=== PATIENT | male | born 1945 | race Caucasian/White ===

== ENCOUNTER 2017-08-13 04:32 | Emergency (ER) | payer MEDICARE, OTHER ==
[2017-08-13 05:46] LABS: Bilirubin Negative (Negative); Blood, Urine Negative (Negative); Clarity CLEAR (Clear); Glucose, Urine (Dipstick) >=1000 mg/dL (Negative); Leukocyte Negative (Negative); Nitrite Negative (Negative); Protein, Urine (Dipstick) 30 mg/dL (Neg-Trace); Specific Gravity, Urine 1.025 (1.002-1.036); Urobilinogen 0.2 mg/dL (0.2-1.0)
[2017-08-13 05:49] LABS: Bacteria/HPF None Seen HPF (None Seen); Hyaline Casts/LPF 0-3 HYALINE CAST LPF (0-3 Hyaline); RBC/HPF 0-3 HPF (0-3); Squamous Epithelial 0-3 HPF (0-3); WBC/HPF 0-3 HPF (0-3)
[2017-08-13 05:52] LABS: ALT (SGPT) 17 U/L (8-55); AST (SGOT) 18 U/L (5-34); Albumin 4.8 g/dL (3.4-4.8); Alkaline Phosphatase 74 U/L (40-150); Anion Gap 14 mmol/L (10-20); BUN (Urea Nitrogen) 33 mg/dL (8.4-25.7); Bilirubin, Total 0.5 mg/dL (0.2-1.2); Calc. Creatinine Clearance 0 mL/min (70-130); Calcium 10.2 mg/dL (7.8-10.44); Carbon Dioxide 29 mmol/L (23-31); Chloride 97 mmol/L (98-107); Estimated GFR-MDRD 37; Globulin 3.6 g/dL (2.4-3.5); Glucose 364 mg/dL (83-110); Lipase 19 U/L (8-78); Potassium 3.9 mmol/L (3.5-5.1); Protein, Total 8.4 g/dL (5.8-8.1); Sodium 136 mmol/L (136-145)
[2017-08-13 05:55] LABS: CKMB 2.2 ng/mL (0-6.6); Troponin I 0.022 ng/mL (< 0.028)
[2017-08-13 06:00] LABS: #Basophils 0.1 thou/uL (0.0-0.2); #Eosinphils 0.3 thou/uL (0.0-0.7); #Lymphocytes 2.6 thou/uL (1.20-3.40); #Monocytes 0.8 thou/uL (0.11-0.59); #Neutrophils 6.6 thou/uL (1.40-6.50); %Basophils 0.6 % (0.0-1.0); %Eosinophils 2.6 % (0.0-10.0); %Neutrophils 63.9 % (42.0-75.0); Hemoglobin 15.3 g/dL (14.0-18.0); Mean Corpuscular HGB CONC 31.7 g/dL (32.0-36.0); Mean Corpuscular Volume 85.1 fl (80.0-94.0); Mean Platelet Volume 10.3 fL (7.4-10.4); Platelet Count 195 thou/uL (130-400); RBC Distribution Width 12.7 % (11.5-14.5); Red Blood Cell (RBC) Count 5.68 mill/uL (4.70-6.10); White Blood Cell (WBC) Count 10.4 thou/uL (4.8-10.8)
[2017-08-13] MEDS ORDERED: Ondansetron ODT 8 MG TAB ONE (06:35)
[2017-08-13] MEDS ORDERED: Morphine 4 MG/ML VIAL ONE (06:35)
[2017-08-13] MEDS ORDERED: hydrALAZINE 20 MG/ML VIAL ONE (08:41)
--- NOTE | 2017-08-13 09:53 | CT ---
PRELIMINARY REPORT/[facility]/EMERGENTY AFTER-HOURS PROCEDURE CT Abdomen and Pelvis Without Intravenous Contrast CLINICAL HISTORY: 71 years old, male; Pain; Abdominal pain; Localized; Right lower quadrant (rlq); Patient HX: M71 pres ents to ed C/O rlq abd pain for the last 2 days that began while pt was sitting at home. Pt reports p ain worsened tonight. Pt denies HX of similar SX, or any rachel or trauma. Pt reports nausea, denies vomiting, diarrhea, radiation of pain, changes in pain, dysuria, hematuria, fever or chills. Pt repor ts forgetting to take BP medication this am. Pt reports WYNNE. Daughter reports first hearing of pain to night when pt called because pain caused him to not sleep. TECHNIQUE: Axial computed tomography images of the abdomen and pelvis without intravenous contrast. Coronal refo rmatted images were created and reviewed. COMPARISON: No relevant prior studies available. FINDINGS: Lung bases: Mild atelectasis is seen in both lung bases. Heart: Coronary artery calcifications are noted. Mediastinum: A small hiatal hernia is seen. ABDOMEN: Liver: Unremarkable. Gallbladder and bile ducts: Unremarkable. No calcified stones. No ductal dilation. Pancreas: Severe fatty replacement of the pancreas is seen. No ductal dilation. Spleen: Unremarkable. No splenomegaly. Adrenals: Unremarkable. No mass. Kidneys and ureters: There is a simple cyst in the upper pole of the left kidney measuring 1.2 cm. No obstructing stones. No hydronephrosis. Stomach and bowel: Mild diverticulosis without evidence of diverticulitis affects the sigmoid colon. Moderate stool is noted in the colon. No obstruction. PELVIS: Appendix: No findings to suggest acute appendicitis. Bladder: Mild thickening of the urinary bladder wall is likely due to underdistention. Cystitis is no t excluded. Reproductive: Unremarkable as visualized. ABDOMEN and PELVIS: Intraperitoneal space: No evidence of free air in the abdomen. No significant fluid collection. Bones/joints: Moderate degenerative changes affect the spine. There are sternal wires consistent with previous sternotomy incision. Mild levoscoliosis of the lumbar spine is seen. No acute fracture. No dislocation. Soft tissues: Mild fat stranding involving the anterior abdominal wall on the right may represent inf ection, inflammation. Vasculature: Mild atherosclerotic calcifications affect the aorta and its branches. No abdominal aort ic aneurysm. Lymph nodes: Unremarkable. No enlarged lymph nodes. IMPRESSION: 1. Diverticulosis without evidence of diverticulitis. 2. Small hiatal hernia. 3. Mild thickening of the urinary bladder wall is likely due to underdistention. Cystitis is not excl uded. 4. Mild fat stranding involving the anterior abdominal wall on the right may represent infection, inf lammation. 5. Mild levoscoliosis of the lumbar spine. Thank you for allowing us to participate in the care of your patient. Dictated and Authenticated by: Mary Carmen Waller MD 08/13/2017 7:27 AM Central Time ([place] & [place]) FINAL REPORT ABDOMEN CT WITHOUT CONTRAST PELVIC CT WITHOUT CONTRAST: HISTORY: Two days of right lower quadrant pain. COMPARISON: None. TECHNIQUE: An abdomen and pelvic CT are performed without contrast. Coronal reformatted images are submitted fo r interpretation. FINDINGS: This report is in agreement with the preliminary report by [facility] [email or web address] No acute abnormality in the abdomen or pelvis. Normal-caliber appendix is identified. There is diverticulosis, without evidence of dive rticulitis. No evidence of obstructive uropathy. The urinary bladder demonstrates minimal prominenc e, likely due to inadequate distention. There is straightening of the anterior right abdominal subcu taneous fat, nonspecific. Correlate clinically for focal cellulitis. POS: [facility]
== END 2017-08-13 08:55 | disposition home or self-care (01) ==
LOC: ERS 04:32
DX: R10.31 Right lower quadrant pain (principal); I11.0 Hypertensive heart disease with heart failure; I50.9 Heart failure, unspecified; M06.9 Rheumatoid arthritis, unspecified; E11.9 Type 2 diabetes mellitus without complications; E78.5 Hyperlipidemia, unspecified; F41.9 Anxiety disorder, unspecified; Z87.891 Personal history of nicotine dependence; Z79.4 Long term (current) use of insulin; Z79.02 Long term (current) use of antithrombotics/antiplatelets; Z79.899 Other long term (current) drug therapy; Z79.891 Long term (current) use of opiate analgesic
CPT/HCPCS: 74176; 80053; 81003; 81015; 82553; 83605; 83690; 84484; 85025; 87086; 93005; 96374; J0360; J2270

== ENCOUNTER 2020-01-18 10:55 | Inpatient (IN) | payer MEDICARE, OTHER ==
[2020-01-18] MEDS ORDERED: Fentanyl 100 MCG/2 ML VIAL ONE (11:38)
[2020-01-18] MEDS ORDERED: Acetaminophen 500 MG TAB ONE (11:39)
[2020-01-18] MEDS ORDERED: Clindamycin/D5W 900 mg/50 ml Premix Bag ONE (11:39)
[2020-01-18] MEDS ORDERED: Cefepime 2 GM VIAL ONE (11:39)
[2020-01-18] MEDS ORDERED: Sodium Chloride 0.9% 100 ML ONE (11:40)
--- NOTE | 2020-01-18 11:52 | RAD ---
Exam: XR Foot Lt 3 View STANDARD HISTORY: Left foot pain. Wound at lateral aspect of foot. COMPARISON: None FINDINGS: Subcutaneous soft tissue swelling and emphysema is seen along the lateral aspect of the left foot at the level of the metacarpals. No adjacent osseous destruction is seen suggest osteomyelitis based on radiographic evaluation. Mild subcutaneous soft tissue swelling seen at the dorsal aspect of the l eft foot. No fracture, dislocation, or other osseous abnormality is identified. Plantar calcaneal enthesophyte. IMPRESSION: Subcutaneous soft tissue swelling and emphysema lateral left foot at the level of the fifth metatarsa l. Findings may be related to infection and patient's wound. No underlying osseous destruction is appreciated to suggest osteomyelitis based on this exam. However, if there is concern for osteomyelit is, MRI with and without IV contrast would be more sensitive study of choice for further evaluation.
[2020-01-18 12:12] LABS: Hemoglobin 12.3 g/dL (14.0-18.0); Mean Corpuscular HGB CONC 32.2 g/dL (32.0-36.0); Mean Corpuscular Hemoglobin 28.4 pg (27.0-31.0); Mean Corpuscular Volume 88.4 fL (78.0-98.0); Mean Platelet Volume 9.9 fL (7.4-10.4); Platelet Count 264 thou/uL (130-400); RBC Distribution Width 13.5 % (11.5-14.5); Red Blood Cell (RBC) Count 4.33 mill/uL (4.70-6.10); White Blood Cell (WBC) Count 25.1 thou/uL (4.8-10.8)
[2020-01-18 12:33] LABS: ALT (SGPT) 21 U/L (8-55); AST (SGOT) 22 U/L (5-34); Albumin 3.6 g/dL (3.4-4.8); Alkaline Phosphatase 126 U/L (40-110); Anion Gap 17 mmol/L (10-20); BUN (Urea Nitrogen) 35 mg/dL (8.4-25.7); Bilirubin, Total 0.5 mg/dL (0.2-1.2); Calc. Creatinine Clearance 0 mL/min (70-130); Carbon Dioxide 27 mmol/L (23-31); Chloride 92 mmol/L (98-107); Estimated GFR-MDRD 42; Globulin 3.9 g/dL (2.4-3.5); Glucose 406 mg/dL (83-110); Potassium 3.8 mmol/L (3.5-5.1); Protein, Total 7.5 g/dL (5.8-8.1); Sodium 132 mmol/L (136-145)
[2020-01-18 12:34] LABS: Band 3 % (5-11); Lymphocytes 4 % (21-51); MDiff Complete? YES; Monocytes 1 % (0-10); Neutrophil 91 % (42-75); Platelet Morphology Comment Appears Adequate; RBC Morphology Normal; Reactive Lymphocytes 1 % (0-10)
[2020-01-18] MEDS ORDERED: Vancomycin 1.5 GRAM/300 ML BAG 1.5 GM in Premix Bag 1 BAG IVPB SCH (13:00)
[2020-01-18] MEDS ORDERED: Heparin 1,000 UNITS/ML VIAL ONE (13:56)
[2020-01-18] MEDS: Acetaminophen/Codeine 30-300mg Tablet PO PRN ×2 (15:19→20:11)
[2020-01-18] MEDS ORDERED: Dextrose 50% Abboject 50 ML SYRINGE SLOW IVP PRN (16:27)
[2020-01-18] MEDS ORDERED: Dextrose 5% in Water 1,000 ML IV PRN (16:27)
[2020-01-18] MEDS: traMADol HCl 50 MG TAB PO PRN ×2 (16:32→22:35)
--- NOTE | 2020-01-18 16:40 | ULT ---
EXAM: US Arterial Doppler Lower Ext PROVIDED CLINICAL HISTORY: Diabetic foot. Left foot pain with wound left foot. COMPARISON: None FINDINGS: Grayscale, color-flow, Doppler evaluation, and spectral analysis of the left lower extremity arterial vessels is performed with 2-D imaging. There is evidence of a left lower extremity femoral to popliteal artery bypass graft. Monophasic wave forms are seen throughout the graft. Velocity measurements in the graft are 119 cm/s near the origin, 52.8 cm/s in the proximal graft, 25.9 cm/s in the mid graft, and 25.9 cm/s in the distal hannah t. There is elevated peak systolic velocity measurement with spectral broadening and monophasic waveform seen in the right popliteal artery of 195 cm/s. Peak systolic velocity in the left anterior tibial artery is 50.6 cm/s with peak systolic velocity dorsalis pedis artery significantly diminished at 6.8 cm/s. [place] right superficial femoral artery demonstrates echogenic material and calcifications with marke dly dampened monophasic waveform suggesting near occlusion of the right superficial femoral artery proximally. IMPRESSION: 1. Right lower extremity femoral to popliteal artery bypass graft with monophasic waveforms seen thro ughout the bypass graft. The peak systolic velocity becomes dampened in the proximal aspect of the graft with greater decreased systolic velocity in the mid and distal graft. 2. Significantly elevated peak systolic velocity with monophasic waveform and spectral broadening in the proximal right lower extremity popliteal artery suggesting significant stenosis at this level.
[2020-01-18] MEDS: HumaLOG 300 UNITS/3 ML VIAL SC PRN (18:03)
[2020-01-18] MEDS ORDERED: Sodium Chloride 0.9% 10 ML ONE (19:57)
[2020-01-18] MEDS: Clindamycin/D5W 600 MG in Premix Bag 1 BAG IVPB SCH (20:07)
--- NOTE | 2020-01-18 20:09 | PDOC.HHP ---
Hospitalist HPI - History of Present Illness Left leg ulcer History of Present Illness: This is a 74-year-old male patient for history of diabetes mellitus, CHF, hyperlipidemia, and COPD who presents with diabetic foot ulcer on the distal lateral edge of his left foot. The wound started developing a couple of weeks ago and has gradually worsened. It has become more painful and throbbingleading him to come to the ED for further evaluation. He denies any fevers, chest pain shortness of breath chills or rigors. He has a significant past medical history of peripheral arterial disease requiring bypass on his left popliteal femoral region evident on Doppler ultrasound scan. He has also been having bilateral tingling in his lower limbs however no clear diagnosis of neuropathy. At presentation his vitals were BP 130/62, pulse 68, respiratory 16, saturating 93% on room air. His labs showed WBC of 25.1 with 3 bands, 91% neutrophils. Also had hemoglobin 12.3, platelets 264. Chemistry showed mild hyponatremia of 132, creatinine 1.6 with estimated GFR of 42. Alkaline phosphatase was elevated at 126. X-ray of his foot showed subcutaneous soft tissue swelling and emphysema on the lateral left foot at the level of the fifth metatarsal. He was started on vancomycin, clindamycin and cefepime and given 1 L normal saline. Hospitalist team was consulted for admission. Hospitalist ROS - Review of Systems Constitutional: denies: fever, chills, weakness Respiratory: denies: cough, shortness of breath, hemoptysis, SOB with excertion Cardiovascular: denies: chest pain, palpitations, orthopnea, paroxysmal noc. dyspnea Gastrointestinal: denies: nausea, vomiting, abdominal pain, diarrhea Genitourinary: denies: dysuria, frequency, incontinence, hematuria Musculoskeletal: reports: foot pain. denies: neck pain, shoulder pain Neurological: denies: weakness Other: Paresthesia - Medication Medications: Active Medications Generic Name Dose Route Start Last Admin Trade Name Freq PRN Reason Stop Dose Admin Acetaminophen/Codeine Phosphate 1 tab 01/18/20 15:03 01/18/20 15:19 Acetaminophen/Codeine 30-300mg Tablet PO 1 tab Q4H PRN Administration Moderate Pain (4-6) Insulin Human Lispro 0 units 01/18/20 16:27 01/18/20 18:03 Humalog 300 Units/3 Ml Vial SC 3 unit .MILD SLIDING SCALE PRN Administration Mild Correctional Scale Tramadol HCl 50 mg 01/18/20 15:03 01/18/20 16:32 Tramadol Hcl 50 Mg Tab PO 50 mg Q6H PRN Administration Mild Pain (1-3) Hospitalist History - Past Medical History Cardiac: reports: CHF Other Medical History: Peripheral artery disease, diabetes mellitus, hypertension - Past Surgical History Other Surgical History: Arterial bypass - Family History Family History: reports: diabetes mellitus - Social History Smoking Status: Current every day smoker Alcohol: reports: None Activity level: independent ambulation - Exam General Appearance: awake alert General - other findings: In no acute distress Heart: RRR, no murmur, no gallops, no rubs Respiratory: no wheezes, no rales, no ronchi, normal chest expansion Gastrointestinal: soft, non-tender, non-distended, normal bowel sounds Extremities: no cyanosis, no clubbing, no edema Extremities - other findings: Ulcer on lateral edge of left foot Neurological: cranial nerve grossly intact, no weakness Psychiatric: normal affect, normal behavior, A&O x 3 Hospitalist Results - Labs Result Diagrams: 01/18/20 11:48 01/18/20 11:48 Lab results: WBC 25.1 thou/uL (4.8-10.8) H 01/18/20 11:48 Hgb 12.3 g/dL (14.0-18.0) L 01/18/20 11:48 Hct 38.3 % (42.0-52.0) L 01/18/20 11:48 MCV 88.4 fL (78.0-98.0) 01/18/20 11:48 Plt Count 264 thou/uL (130-400) 01/18/20 11:48 Band Neuts % (Manual) 3 % (5-11) L 01/18/20 11:48 Sodium 132 mmol/L (136-145) L 01/18/20 11:48 Potassium 3.8 mmol/L (3.5-5.1) 01/18/20 11:48 Chloride 92 mmol/L (98-107) L 01/18/20 11:48 Carbon Dioxide 27 mmol/L (23-31) 01/18/20 11:48 BUN 35 mg/dL (8.4-25.7) H 01/18/20 11:48 Creatinine 1.60 mg/dL (0.7-1.3) H 01/18/20 11:48 Glucose 406 mg/dL (83-110) H 01/18/20 11:48 Lactic Acid 1.6 mmol/L (0.5-2.2) 01/18/20 11:48 Calcium 9.0 mg/dL (7.8-10.44) 01/18/20 11:48 Total Bilirubin 0.5 mg/dL (0.2-1.2) 01/18/20 11:48 AST 22 U/L (5-34) 01/18/20 11:48 ALT 21 U/L (8-55) 01/18/20 11:48 Alkaline Phosphatase 126 U/L (40-110) H 01/18/20 11:48 Serum Total Protein 7.5 g/dL (5.8-8.1) 01/18/20 11:48 Albumin 3.6 g/dL (3.4-4.8) 01/18/20 11:48 Hospitalist H&P A/P - Plan Plan: This is a 74-year-old male patient with a history of diabetes mellitus, peripheral vascular disease and heart failure presenting with left foot diabetic ulcer. Diabetic foot ulcer Started on antibioticsvancomycin cefepime and clindamycin We will continue antibiotics with vancomycin Zosyn and clindamycin Given gas in the wound area will consult general surgery to evaluate due to concerns for necrotizing fasciitis Monitor vitals closely. peripheral vascular disease S/p left arterial bypass Arterial ultrasound shows compromised blood flow to right lower limbconsider vascular surgery evaluation in a.m. Patient on clopidogrel however not on any statins. We will hold clopidogrel on account of possible surgery Vascular surgery evaluation. Heart failure Not in acute exacerbation On Lasix and lisinopril at homewe will hold on account of JORDYN Evaluate if echocardiogram in a.m. JORDYN on CKD Creatinine elevated at one-point however no baseline to compare with OE hydrated Check BMP in a.m. Hyponatremia Mild Repeat BMP in a.m. VT prophylaxisHeparin CODE STATUSfull code
[2020-01-18] MEDS ORDERED: Sodium Chloride 0.9% 1,000 ML IV SCH (20:45)
--- NOTE | 2020-01-18 21:02 | RAD ---
Chest AP view INDICATION: History of heart failure COMPARISON: Prior exam dated July 21, 2015 FINDINGS: Lungs: There is persistent right basilar opacity likely related to subsegmental volume loss. This is seen adjacent to a chronic small right pleural effusion Cardiac silhouette: There is stable moderate cardiomegaly and post-CABG change Pulmonary vasculature: Normal Pleural spaces: There is a chronic small right pleural effusion Upper abdomen: No abnormality seen. Osseous structures: No acute osseous abnormality. Additional findings: None. IMPRESSION: Stable moderate cardiomegaly. Persistent right basilar pleural-parenchymal opacity consistent with a chronic small right pleural ef fusion and likely right basilar atelectasis.
[2020-01-18] MEDS: Heparin 5,000 UNITS/ML VIAL SC SCH (21:06)
[2020-01-18] MEDS ORDERED: Insulin Glargine 40 UNITS in Pre-Filled Syringe 1 EACH SC SCH (22:00)
[2020-01-18 23:29] LABS: Hemoglobin A1c Greater than 14.0 % (4.0-6.0)
[2020-01-18] MEDS ORDERED: Cefepime 2 GM in Sodium Chloride 0.9% 100 ML IVPB SCH (23:59)
[2020-01-19] MEDS: Piperacillin/Tazobactam 4.5 GM in Sodium Chloride 0.9% 100 ML IVPB SCH ×4 (00:26→18:28)
[2020-01-19] MEDS: Clindamycin/D5W 600 MG in Premix Bag 1 BAG IVPB SCH ×4 (02:22→20:10)
[2020-01-19] MEDS: Acetaminophen/Codeine 30-300mg Tablet PO PRN ×3 (03:31→15:56)
[2020-01-19] MEDS: Dextrose 5 %-0.45 % NaCl 1,000 ML IV SCH (05:45)
[2020-01-19] MEDS ORDERED: Dextrose 5 %-0.45 % NaCl 1,000 ML IV SCH (05:45)
[2020-01-19] MEDS: traMADol HCl 50 MG TAB PO PRN (05:55)
[2020-01-19 06:06] LABS: #Lymphocytes 1.2 thou/uL (1.20-3.40); #Monocytes 1.2 thou/uL (0.11-0.59); #Neutrophils 15.9 thou/uL (1.40-6.50); %Basophils 0.1 % (0.0-1.0); %Lymphocytes 6.7 % (21.0-51.0); %Monocytes 6.3 % (0.0-10.0); Hemoglobin 11.4 g/dL (14.0-18.0); Mean Corpuscular Hemoglobin 28.2 pg (27.0-31.0); Mean Corpuscular Volume 88.3 fL (78.0-98.0); Platelet Count 284 thou/uL (130-400); RBC Distribution Width 13.3 % (11.5-14.5); Red Blood Cell (RBC) Count 4.03 mill/uL (4.70-6.10); White Blood Cell (WBC) Count 18.5 thou/uL (4.8-10.8)
[2020-01-19 06:07] LABS: #Eosinphils 0.2 thou/uL (0.0-0.7)
[2020-01-19 06:26] LABS: Anion Gap 17 mmol/L (10-20); BUN (Urea Nitrogen) 24 mg/dL (8.4-25.7); Calc. Creatinine Clearance 60 mL/min (70-130); Calcium 8.4 mg/dL (7.8-10.44); Carbon Dioxide 27 mmol/L (23-31); Chloride 99 mmol/L (98-107); Estimated GFR-MDRD 60; Sodium 140 mmol/L (136-145)
[2020-01-19 06:32] LABS: Glucose 47 mg/dL (83-110); Potassium 2.8 mmol/L (3.5-5.1)
[2020-01-19] MEDS: Potassium Chloride 20 MEQ TAB PO SCH ×2 (06:55→07:59)
[2020-01-19] MEDS: Enoxaparin Sodium 40 MG/0.4 ML SYRINGE SC SCH (07:18)
--- NOTE | 2020-01-19 08:11 | PDOC.HOSPP ---
- Subjective Encounter Date: 01/19/20 Encounter Time: 11:20 Subjective: Patient desated while sleeping overnight to low 80s, up to 90's on 2LNC. No SOB. This AM after breakfast got nauseated, started vomiting, and heart rate into 40- 50s. Came to bedside. Got EKG with just sinus josseline. No chest pain. Did feel a bit dizzy. Normal blood pressure. No other complaints. - Objective Vital Signs & Weight: Vital Signs (12 hours) Temp Pulse Resp BP Pulse Ox 01/19/20 05:10 99.3 F 68 20 108/54 L 96 01/19/20 00:20 99.2 F 64 24 H 116/60 94 L Weight Weight 175 lb 0.752 oz I&O: 01/18/20 01/19/20 01/20/20 06:59 06:59 05:59 Output Total 625 Balance -625 Result Diagrams: 01/19/20 05:25 01/19/20 11:38 Additional Labs: Accuchecks 01/18/20 01/18/20 01/18/20 21:12 17:46 14:13 POC Glucose 134 H 225 H 316 H Hospitalist ROS - Review of Systems Constitutional: reports: weakness. denies: fever, chills Respiratory: denies: cough, shortness of breath Cardiovascular: denies: chest pain, palpitations Gastrointestinal: reports: nausea, vomiting. denies: abdominal pain, diarrhea, constipation Genitourinary: denies: dysuria, hematuria - Medication Medications: Active Medications Generic Name Dose Route Start Last Admin Trade Name Freq PRN Reason Stop Dose Admin Acetaminophen/Codeine Phosphate 1 tab 01/18/20 15:03 01/19/20 07:59 Acetaminophen/Codeine 30-300mg Tablet PO 1 tab Q4H PRN Administration Moderate Pain (4-6) Dextrose/Water 25 gm 01/18/20 16:27 01/19/20 05:38 Dextrose 50% Abboject 50 Ml Syringe SLOW IVP 25 gm PRN PRN Administration Hypoglycemia Enoxaparin Sodium 40 mg 01/19/20 09:00 01/19/20 07:18 Enoxaparin Sodium 40 Mg/0.4 Ml Syringe SC Not Given 0900 SELENA Heparin Sodium (Porcine) 5,000 units 01/18/20 21:00 01/18/20 21:06 Heparin 5,000 Units/Ml Vial SC 5,000 units BID SELENA Administration Clindamycin Phosphate/Dextrose 50 mls @ 100 mls/hr 01/18/20 20:00 01/19/20 07:58 600 mg/ Device IVPB 50 mls 0200,0800,1400,2000 SELENA Administration Piperacillin Sod/Tazobactam 100 mls @ 200 mls/hr 01/18/20 23:59 01/19/20 05:49 Sod 4.5 gm/ Sodium Chloride IVPB 100 mls Q6HR SELENA Administration Dextrose/Sodium Chloride 1,000 mls @ 45 mls/hr 01/19/20 05:45 01/19/20 05:45 D5 1/2 Ns IV 1,000 mls .[id number] SELENA Administration Insulin Human Lispro 0 units 01/18/20 16:27 01/18/20 18:03 Humalog 300 Units/3 Ml Vial SC 3 unit .MILD SLIDING SCALE PRN Administration Mild Correctional Scale Pantoprazole Sodium 40 mg 01/19/20 09:00 01/19/20 07:59 Pantoprazole 40 Mg Tab PO 40 mg DAILY SELENA Administration Potassium Chloride 40 meq 01/19/20 07:00 01/19/20 07:59 Potassium Chloride 20 Meq Tab PO 01/19/20 09:01 40 meq Q2H SELENA Administration Tramadol HCl 50 mg 01/18/20 15:03 01/19/20 05:55 Tramadol Hcl 50 Mg Tab PO 50 mg Q6H PRN Administration Mild Pain (1-3) - Exam General Appearance: awake alert General - other findings: mild distress from nausea, vomited some yellow fluid a couple times ENT: moist mucosa Heart: no murmur, no gallops, no rubs Heart - other findings: mild bradycardia in mid 50s currently on my exam Respiratory: CTAB, no wheezes, no rales, no ronchi Gastrointestinal: soft, non-tender, non-distended, normal bowel sounds Psychiatric: normal affect, normal behavior, A&O x 3 Hosp A/P (1) Diabetic foot ulcer Code(s): E11.621 - TYPE 2 DIABETES MELLITUS WITH FOOT ULCER; L97.509 - NON- PRESSURE CHRONIC ULCER OTH PRT UNSP FOOT W UNSP SEVERITY Status: Acute (2) Sepsis Code(s): A41.9 - SEPSIS, UNSPECIFIED ORGANISM Status: Acute (3) Peripheral vascular disease Code(s): I73.9 - PERIPHERAL VASCULAR DISEASE, UNSPECIFIED Status: Chronic (4) Diabetes mellitus type 2 in nonobese Code(s): E11.9 - TYPE 2 DIABETES MELLITUS WITHOUT COMPLICATIONS Status: Chronic (5) HTN (hypertension) Code(s): I10 - ESSENTIAL (PRIMARY) HYPERTENSION Status: Chronic (6) Hypokalemia Code(s): E87.6 - HYPOKALEMIA Status: Acute (7) Hypoglycemia Code(s): E16.2 - HYPOGLYCEMIA, UNSPECIFIED Status: Acute - Plan Patient with possible necrotizing fasciitis. General surgery consulted. On Zosyn, Clinda, and Vanc since 01/18/2020. Blood sugar low this AM. Started on IV fluids with dextrose. Monitor closely. Hypokalemia being replaced orally, recheck now with lab. Nausea, bradycardia likely due to valsalva from vomiting. Give Zofran. Check lab and Troponin. Transfer to telemetry. Possibly history of CHF. Get ECHO. Resume home BP medications. DVT Proph: Lovenox GI Proph: PPI
[2020-01-19] MEDS ORDERED: Metoprolol Tartrate 50 MG TAB PO SCH (09:00)
[2020-01-19] MEDS: Furosemide 40 MG TAB PO SCH (10:02)
[2020-01-19] MEDS: DULoxetine 30 MG CAP PO SCH (10:02)
[2020-01-19] MEDS: Lisinopril 2.5 MG TAB PO SCH (11:07)
[2020-01-19] MEDS ORDERED: Ondansetron PF 4 MG/2 ML Vial IVP SCH (11:30)
[2020-01-19] MEDS: Heparin 5,000 UNITS/ML VIAL SC SCH ×2 (12:08→20:10)
[2020-01-19] MEDS: Clopidogrel Bisulfate 75 MG TAB PO SCH (12:08)
[2020-01-19 12:09] LABS: Anion Gap 18 mmol/L (10-20); BUN (Urea Nitrogen) 23 mg/dL (8.4-25.7); Calc. Creatinine Clearance 52 mL/min (70-130); Calcium 8.6 mg/dL (7.8-10.44); Carbon Dioxide 25 mmol/L (23-31); Chloride 100 mmol/L (98-107); Estimated GFR-MDRD 51; Glucose 103 mg/dL (83-110); Potassium 3.6 mmol/L (3.5-5.1); Sodium 139 mmol/L (136-145)
[2020-01-19 12:33] LABS: CKMB 1.6 ng/mL (0-6.6)
[2020-01-19] MEDS ORDERED: Ondansetron ODT 4 MG TAB SL PRN (12:35)
[2020-01-19 13:06] LABS: Calcium 8.7 mg/dL (7.8-10.44); Chloride 99 mmol/L (98-107); Potassium 3.6 mmol/L (3.5-5.1); Sodium 136 mmol/L (136-145)
[2020-01-19 13:07] LABS: Glucose 103 mg/dL (83-110)
[2020-01-19 13:08] LABS: Anion Gap 19 mmol/L (10-20); Carbon Dioxide 22 mmol/L (23-31)
[2020-01-19 13:10] LABS: Calc. Creatinine Clearance 52 mL/min (70-130); Estimated GFR-MDRD 51
[2020-01-19 13:11] LABS: BUN (Urea Nitrogen) 23 mg/dL (8.4-25.7)
[2020-01-19] MEDS ORDERED: Aspirin 325 mg Enteric Coated Tablet PO SCH (13:30)
[2020-01-19] MEDS ORDERED: Vancomycin HCl 1.25 GM in Sodium Chloride 0.9% 250 ML 250 ML IVPB SCH (15:00)
--- NOTE | 2020-01-19 15:24 | PDOC.GSCN ---
Surgery Consult: [facility] - Consult details Date: 01/19/20 Time: 12:25 Reason for consult: wound care History of present illness: 01/19/20 15:23 74-year-old male presented to the emergency department with complaints of weakness and dizziness. He reports that he had a left lateral foot ulcer over the fifth metatarsal head. This ulcer has been progressing over the last 2 weeks. He denies fevers or chills. He does have a history for diabetes, c ongestive heart failure, COPD, and significant peripheral vascular disease. Surgery Consult: [facility] Past Medical History: Diabetes mellitus Congestive heart failure Hyperlipidemia COPD Peripheral vascular disease status post bilateral bypass Past Surgical History: Bilateral femoral bypass - Past Family History Pertinent family history: Diabetes mellitus - Past Social History Smoking Status: Current every day smoker Alcohol Use: none Drug Use History: none Living Situation: Surgery Consult: Exam - Vital signs Vital signs: Vital Signs - Most Recent Temp Pulse Resp BP Pulse Ox 98.0 F 48 L 15 106/57 L 99 01/19/20 11:04 01/19/20 12:27 01/19/20 12:27 01/19/20 12:27 01/19/20 11:15 - Physical Exam General: moderate distress, no distress, severe distress, well developed, well nourished ENT: no congestion, no hearing loss, normal mucosa, normal nares, normal pinna Neck: no bruits, no lymphadectomy, no masses, no tamica distention, trachea midline Respiratory: normal expansion, normal respiratory effort Abdomen: soft, tender Integumentary: no rash Neurologic: normal coordination, normal sensation Musculoskeletal: other (2 to 3 cm chronic ulcer of the left lateral foot at the fifth metatarsal head. Superficial dark eschar with surrounding erythema. Not consistent with necrotizing fasciitis.) Psychiatric: memory intact, oriented to time, oriented to person, oriented to place, speech is normal Surgery Consult: Meds - Medications Medications: Current Medications Acetaminophen (Acetaminophen 325 Mg Tab) 650 mg PO Q6H PRN PRN Reason: Mild Pain (1-3) Acetaminophen/Codeine Phosphate (Acetaminophen/Codeine 30-300mg Tablet) 1 tab PO Q4H PRN PRN Reason: Moderate Pain (4-6) Last Admin: 01/19/20 07:59 Dose: 1 tab Documented by: Aspirin (Aspirin 325 Mg Enteric Coated Tablet) 325 mg PO NOW SELENA Stop: 10/31/20 15:30 Last Admin: 01/19/20 13:27 Dose: 325 mg Documented by: Aspirin (Aspirin 81 Mg Enteric Coated Tablet) 81 mg PO DAILY [facility] Clopidogrel Bisulfate (Clopidogrel Bisulfate 75 Mg Tab) 75 mg PO DAILY [facility] Last Admin: 01/19/20 12:08 Dose: Not Given Documented by: Dextrose/Water (Dextrose 50% Abboject 50 Ml Syringe) 25 gm SLOW IVP PRN PRN PRN Reason: Hypoglycemia Last Admin: 01/19/20 05:38 Dose: 25 gm Documented by: Duloxetine HCl (Duloxetine 30 Mg Cap) 30 mg PO DAILY [facility] Last Admin: 01/19/20 10:02 Dose: 30 mg Documented by: Enoxaparin Sodium (Enoxaparin Sodium 40 Mg/0.4 Ml Syringe) 40 mg SC 0900 [facility] Last Admin: 01/19/20 07:18 Dose: Not Given Documented by: Furosemide (Furosemide 40 Mg Tab) 40 mg PO DAILY [facility] Last Admin: 01/19/20 10:02 Dose: 40 mg Documented by: Glucagon (Glucagon 1 Mg/Ml Vial) 1 mg IM PRN PRN PRN Reason: Hypoglycemia Heparin Sodium (Porcine) (Heparin 5,000 Units/Ml Vial) 5,000 units SC BID [facility] Last Admin: 01/19/20 12:08 Dose: Not Given Documented by: Dextrose/Water (D5w) 1,000 mls @ 0 mls/hr IV .Q0M PRN PRN Reason: Hypoglycemia Vancomycin HCl 1.25 gm/ Sodium (Chloride) 250 mls @ 166.67 mls/hr IVPB 1500 [facility] Clindamycin Phosphate/Dextrose (600 mg/ Device) 50 mls @ 100 mls/hr IVPB 0200,0800,1400,2000 [facility] Last Admin: 01/19/20 14:47 Dose: 50 mls Documented by: Piperacillin Sod/Tazobactam (Sod 4.5 gm/ Sodium Chloride) 100 mls @ 200 mls/hr IVPB Q6HR [facility] Last Admin: 01/19/20 12:24 Dose: 100 mls Documented by: Dextrose/Sodium Chloride (D5 1/2 Ns) 1,000 mls @ 45 mls/hr IV .[id number] [facility] Last Admin: 01/19/20 05:45 Dose: 1,000 mls Documented by: Insulin Glargine 20 units/ (Miscellaneous Medication) 0.2 mls @ 0 mls/hr SC [facility] Influenza Virus Vaccine Quadrival (Flu Vacc [id number](65yr Up)/Pf 240 Mcg/0.7 Ml Syringe) 240 mcg IM .ONCE ONE Stop: 01/19/20 15:46 Insulin Human Lispro (Humalog 300 Units/3 Ml Vial) 0 units SC .MILD SLIDING SCALE PRN PRN Reason: Mild Correctional Scale Last Admin: 01/18/20 18:03 Dose: 3 unit Documented by: Lisinopril (Lisinopril 2.5 Mg Tab) 2.5 mg PO DAILY [facility] Last Admin: 01/19/20 11:07 Dose: Not Given Documented by: Metoprolol Tartrate (Metoprolol Tartrate 50 Mg Tab) 50 mg PO DAILY [facility] Last Admin: 01/19/20 10:02 Dose: 50 mg Documented by: Miscellaneous Medication (Pharmacy To Dose Vancomycin) 1 each IVPB PRN PRN PRN Reason: Pharmacy to dose Ondansetron HCl (Ondansetron Pf 4 Mg/2 Ml Vial) 4 mg IVP Q6H PRN PRN Reason: Nausea/Vomiting Ondansetron HCl (Ondansetron Odt 4 Mg Tab) 4 mg SL Q6H PRN PRN Reason: Nausea/Vomiting Pantoprazole Sodium (Pantoprazole 40 Mg Tab) 40 mg PO DAILY [facility] Last Admin: 01/19/20 07:59 Dose: 40 mg Documented by: Pneumococcal Polyvalent Vaccine (Pneumococcal 23 "Pneumovax" 0.5 Ml Vial) 0.5 ml IM .ONCE ONE Stop: 01/19/20 15:46 Tramadol HCl (Tramadol Hcl 50 Mg Tab) 50 mg PO Q6H PRN PRN Reason: Mild Pain (1-3) Last Admin: 01/19/20 05:55 Dose: 50 mg Documented by: - Allergies Allergies/Adverse Reactions: Allergies Allergy/AdvReac Type Severity Reaction Status Date / Time carvedilol [From Coreg] Allergy Verified 01/18/20 12:54 Surgery Consult: Results - Labs Result Diagrams: 01/19/20 05:25 01/19/20 11:38 Lab results: Laboratory Results WBC 18.5 thou/uL (4.8-10.8) H 01/19/20 05:25 RBC 4.03 mill/uL (4.70-6.10) L 01/19/20 05:25 Hgb 11.4 g/dL (14.0-18.0) L 01/19/20 05:25 Hct 35.6 % (42.0-52.0) L 01/19/20 05:25 MCV 88.3 fL (78.0-98.0) 01/19/20 05:25 MCH 28.2 pg (27.0-31.0) 01/19/20 05:25 MCHC 32.0 g/dL (32.0-36.0) 01/19/20 05:25 RDW 13.3 % (11.5-14.5) 01/19/20 05:25 Plt Count 284 thou/uL (130-400) 01/19/20 05:25 MPV 10.0 fL (7.4-10.4) 01/19/20 05:25 Neutrophils % 86.0 % (42.0-75.0) H 01/19/20 05:25 Neutrophils % (Manual) 91 % (42-75) H 01/18/20 11:48 Band Neuts % (Manual) 3 % (5-11) L 01/18/20 11:48 Lymphocytes % 6.7 % (21.0-51.0) L 01/19/20 05:25 Lymphocytes % (Manual) 4 % (21-51) L 01/18/20 11:48 Reactive Lymphs % 1 % (0-10) 01/18/20 11:48 Monocytes % 6.3 % (0.0-10.0) 01/19/20 05:25 Monocytes % (Manual) 1 % (0-10) 01/18/20 11:48 Eosinophils % 1.0 % (0.0-10.0) 01/19/20 05:25 Basophils % 0.1 % (0.0-1.0) 01/19/20 05:25 Neutrophils # 15.9 thou/uL (1.40-6.50) H 01/19/20 05:25 Lymphocytes # 1.2 thou/uL (1.20-3.40) 01/19/20 05:25 Monocytes # 1.2 thou/uL (0.11-0.59) H 01/19/20 05:25 Eosinophils # 0.2 thou/uL (0.0-0.7) 01/19/20 05:25 Basophils # 0.0 thou/uL (0.0-0.2) 01/19/20 05:25 Plt Morphology Comment Appears Adequate 01/18/20 11:48 RBC Morph Comment Normal 01/18/20 11:48 Sodium 139 mmol/L (136-145) 01/19/20 11:38 Potassium 3.6 mmol/L (3.5-5.1) 01/19/20 11:38 Chloride 100 mmol/L (98-107) 01/19/20 11:38 Carbon Dioxide 25 mmol/L (23-31) 01/19/20 11:38 Anion Gap 18 mmol/L (-20) 01/19/20 11:38 BUN 23 mg/dL (8.4-25.7) 01/19/20 11:38 Creatinine 1.36 mg/dL (0.7-1.3) H 01/19/20 11:38 Estimated GFR (MDRD) 51 01/19/20 11:38 Glucose 103 mg/dL (83-110) 01/19/20 11:38 POC Glucose 94 mg/dL (70-100) 01/19/20 11:11 Hemoglobin A1c Greater than 14.0 % (4.0-6.0) H 01/18/20 21:17 Lactic Acid 1.6 mmol/L (0.5-2.2) 01/18/20 11:48 Calcium 8.6 mg/dL (7.8-10.44) 01/19/20 11:38 Total Bilirubin 0.5 mg/dL (0.2-1.2) 01/18/20 11:48 AST 22 U/L (5-34) 01/18/20 11:48 ALT 21 U/L (8-55) 01/18/20 11:48 Alkaline Phosphatase 126 U/L (40-110) H 01/18/20 11:48 CK-MB (CK-2) 1.6 ng/mL (0-6.6) 01/19/20 11:38 Troponin I 1.012 ng/mL (< 0.028) H* 01/19/20 11:38 Serum Total Protein 7.5 g/dL (5.8-8.1) 01/18/20 11:48 Albumin 3.6 g/dL (3.4-4.8) 01/18/20 11:48 Globulin 3.9 g/dL (2.4-3.5) H 01/18/20 11:48 Albumin/Globulin Ratio 0.9 g/dL (1.2-2.2) L 01/18/20 11:48 - Radiology Interpretation Other Additional comments: Chest x-ray, lower extremity ultrasound, and left foot x-ray reviewed as well as radiology interpretation. Chest x-ray demonstrates stable mild cardiomegaly with a chronic small right effusion. Lower extremity ultrasounds demonstrate decreased flow (monophasic) through grafts. Left foot x-ray shows emphysema surrounding the ulcer with no evidence of osteomyelitis. Surgery Consult: A/P - Problem (1) Diabetic foot ulcer Current Visit: Yes Code(s): E11.621 - TYPE 2 DIABETES MELLITUS WITH FOOT ULCER; L97.509 - NON-PRESSURE CHRONIC ULCER OTH PRT UNSP FOOT W UNSP SEVERITY Status: Acute - Plan Plan: Recommend evaluation by wound care for superficial bedside debridement and/or enzymatic debridement. Continue broad-spectrum antibiotics per hospitalist team Consider vascular surgery consultation to evaluate bypass graft and inflow. We will continue to follow peripherally. Please call for any further questions.
[2020-01-19] MEDS ORDERED: FLU VACC QS2020-21(65YR UP)/PF 240 MCG/0.7 ML SYRINGE IM ONE (15:45)
[2020-01-19] MEDS: Ondansetron PF 4 MG/2 ML Vial IVP PRN (15:52)
[2020-01-19] MEDS: Atorvastatin Calcium 40 MG TAB PO SCH (20:10)
[2020-01-19] MEDS: Insulin Glargine 20 UNITS in Pre-Filled Syringe SC SCH (20:21)
--- NOTE | 2020-01-19 20:37 | CON ---
DATE OF CONSULTATION: HISTORY OF PRESENT ILLNESS: The patient is a 74-year-old gentleman, who presented with foot pain and was noted to have an elevated troponin level. The patient states he has previously suffered a myocardial infarction in 2008. He also has had congestive heart failure. The patient has a history of peripheral vascular disease and apparently has undergone a bifemoral aorto bypass. The patient presented with an infected left foot and was found to have an elevated troponin level. The patient denies having any chest discomfort. He denies having any dyspnea. PAST MEDICAL HISTORY: 1. Myocardial infarction. 2. Congestive heart failure. 3. Diabetes mellitus. 4. Dyslipidemia. 5. Peripheral vascular disease. 6. COPD. PAST SURGICAL HISTORY: Aortofemoral bypass and hernia surgery. SOCIAL HISTORY: Former smoker. ALLERGIES: COREG. MEDICATIONS: 1. Metoprolol 50 daily. 2. Lasix 40 daily. 3. Plavix 75 daily. 4. Protonix 40 daily. 5. Lisinopril 2.5 daily. 6. Duloxetine 30 daily. 7. Insulin. PHYSICAL EXAMINATION: GENERAL: Elderly gentleman, in no acute distress. VITAL SIGNS: With a blood pressure 134/60. NECK: Showed no jugular venous distention. LUNGS: Clear to auscultation. HEART: Regular rate and rhythm. Normal S1 and S2. No murmurs. ABDOMEN: Nondistended. EXTREMITIES: Show infected left lower foot. VASCULAR: Radial pulses are 2+. LABORATORY DATA: White blood cell count 18.5, hemoglobin 11.4, hematocrit 35.6, and platelets 284. Sodium 139, potassium 3.6, chloride 100, bicarbonate 25, BUN 23, and creatinine 1.36. Troponin 1.0. EKG normal sinus rhythm with voltage criteria for left ventricular hypertrophy, ST abnormality suggestive of a repolarization abnormality. IMPRESSION AND PLAN: 1. Cellulitis. 2. Peripheral vascular disease, status post aortofemoral bypass. 3. Elevated troponin level. 4. Diabetes mellitus. 5. Hypertension. 6. Dyslipidemia. This gentleman presents with cellulitis of the left lower foot. From a cardiac standpoint, he was noted to have an elevated troponin level. This is probably secondary to demand ischemia. He is asymptomatic. We will check the patient's echocardiogram. We will start the patient on lipid-lowering medication. The patient will continue on aspirin and Plavix. Job ID: [id number] [facility]
[2020-01-19] MEDS ORDERED: Insulin Glargine 40 UNITS in Pre-Filled Syringe 1 EACH SC SCH (21:00)
[2020-01-20] MEDS: Piperacillin/Tazobactam 4.5 GM in Sodium Chloride 0.9% 100 ML IVPB SCH ×3 (00:05→11:42)
[2020-01-20] MEDS: Clindamycin/D5W 600 MG in Premix Bag 1 BAG IVPB SCH ×3 (01:41→14:08)
[2020-01-20] MEDS: Acetaminophen/Codeine 30-300mg Tablet PO PRN ×5 (01:44→20:12)
[2020-01-20 04:46] LABS: #Eosinphils 0.2 thou/uL (0.0-0.7); #Lymphocytes 1.3 thou/uL (1.20-3.40); #Neutrophils 11.9 thou/uL (1.40-6.50); %Basophils 0.2 % (0.0-1.0); %Eosinophils 1.6 % (0.0-10.0); %Lymphocytes 9.2 % (21.0-51.0); %Monocytes 6.9 % (0.0-10.0); %Neutrophils 82.2 % (42.0-75.0); Hemoglobin 10.5 g/dL (14.0-18.0); Mean Corpuscular HGB CONC 31.5 g/dL (32.0-36.0); Mean Corpuscular Hemoglobin 28.3 pg (27.0-31.0); Mean Corpuscular Volume 89.7 fL (78.0-98.0); Mean Platelet Volume 10.1 fL (7.4-10.4); Platelet Count 236 thou/uL (130-400); RBC Distribution Width 13.6 % (11.5-14.5); White Blood Cell (WBC) Count 14.5 thou/uL (4.8-10.8)
[2020-01-20 05:14] LABS: Anion Gap 17 mmol/L (10-20); BUN (Urea Nitrogen) 24 mg/dL (8.4-25.7); Calc. Creatinine Clearance 45 mL/min (70-130); Carbon Dioxide 22 mmol/L (23-31); Chloride 101 mmol/L (98-107); Estimated GFR-MDRD 47; Glucose 186 mg/dL (83-110); Potassium 4.3 mmol/L (3.5-5.1); Sodium 136 mmol/L (136-145)
[2020-01-20] MEDS: Dextrose 5 %-0.45 % NaCl 1,000 ML IV SCH (05:18)
[2020-01-20] MEDS: traMADol HCl 50 MG TAB PO PRN (05:20)
[2020-01-20] MEDS: Enoxaparin Sodium 40 MG/0.4 ML SYRINGE SC SCH (09:36)
[2020-01-20] MEDS: Furosemide 40 MG TAB PO SCH (09:37)
[2020-01-20] MEDS: Clopidogrel Bisulfate 75 MG TAB PO SCH (09:37)
[2020-01-20] MEDS: Aspirin 81 mg Enteric Coated Tablet PO SCH (09:37)
[2020-01-20] MEDS: Heparin 5,000 UNITS/ML VIAL SC SCH ×2 (09:37→20:10)
[2020-01-20] MEDS: Lisinopril 2.5 MG TAB PO SCH (09:37)
[2020-01-20] MEDS: DULoxetine 30 MG CAP PO SCH (09:37)
[2020-01-20] MEDS: HumaLOG 300 UNITS/3 ML VIAL SC PRN ×2 (11:42→17:31)
--- NOTE | 2020-01-20 11:50 | PRG ---
DATE OF SERVICE: 01/20/[address] angiogram and the patient appeared to have umbilical vein utilized for the femoral-popliteal bypasses. Both right and left-sided grafts are about to fail based on distal disease. Contrast fades out of the right graft before a stent that was evidently placed at some point to maintain patency is present at the level of the knee. On the left side, there is a proximal common femoral artery stenosis and then severe distal disease in the graft near the anastomosis to the popliteal artery with severely diseased popliteal artery and no apparent runoff in any of the tibial vessels. At this time, it would appear that there are very limited options in this gentleman's case. Left common femoral endarterectomy could be performed, but the graft is close to failing distally with few options available later. Similarly, the profunda system is quite small. At this time, prognosis is poor and he will ultimately probably need [id number] amputation, but we will continue with local wound care for this time. Job ID: [id number]
--- NOTE | 2020-01-20 12:51 | CON ---
DATE OF CONSULTATION: HISTORY OF PRESENT ILLNESS: This is a 74-year-old gentleman with peripheral and cardiovascular disease, who presents with a 2-week history of soreness and an ulcer on the lateral aspect of his left foot. The patient presented to the hospital due to pain and smell from the wound. He has a history of bilateral femoral-popliteal bypass done in [place], [place] prior to 2009 for claudication. The patient believes that a plastic was utilized. In any event, he also underwent a right carotid endarterectomy there. I saw him about five years ago during admission for some heart failure, at which time his ejection fraction was normal and cardiac catheterization demonstrated a patent LAD and OM graft with essentially occluded [place] circulation. He had several admissions for heart failure, which was felt to be diastolic at that time. During one of those admissions about five years ago, he was found to have what was felt to be greater than 70% left carotid stenosis by ultrasound and the patient never returned for followup. During his subsequent admission, he was again seen to have an ultrasound greater than 70%. However, no followup was recommended by the service at that time. Cardiovascular risk factors include hypertension, diabetes mellitus, and dyslipidemia. SOCIAL HISTORY: The patient reports current everyday smoking. PHYSICAL EXAMINATION: GENERAL: Elderly gentleman cooperative and answering questions. NECK: Right carotid scar and bilateral carotid bruits. LUNGS: Clear to auscultation. CARDIAC: Regular rate and rhythm with a 1 to 2/6 systolic murmur right upper sternal border. ABDOMEN: Soft and nontender. EXTREMITIES: He has palpable femoral pulses bilaterally. No other palpable pulses. He has Doppler signals in both right and left DP and PT diminished quality bilaterally. He has a smelling wound of his left lateral foot region of the fifth metatarsal head that has black eschar in that region and surrounding cellulitis. He does complain of pain. He has a scar above both knees proximal to both knees as well as a smaller scar over the right medial knee suggesting that this may have been the site of saphenous vein harvesting for his coronary artery bypass surgery. He has an ultrasound suggesting a patent monophasic signal in his bypass graft. We will go ahead and proceed with a CTA to assess the overall status of his legs and determine whether anything further can be done to improve his circulation. Regardless, if we improve the circulation, he will need at least his fifth metatarsal removed and then if revascularization is not possible, he will probably need an amputation more proximally. Job ID: [id number]
--- NOTE | 2020-01-20 12:59 | CT ---
CT ANGIOGRAM ABDOMEN AND PELVIS AND BILATERAL LOWER EXTREMITIES WITH IV CONTRAST AND 3D MIP RECONSTRU CTIONS: PROVIDED CLINICAL HISTORY: Left foot pain with gangrene. COMPARISON: CT examination of the abdomen and pelvis from 08/13/2017. FINDINGS: There are partially visualized pleural effusions, right greater than left, with associated passive at electasis. Prominent cardiomegaly. Small hiatal hernia. There is moderate gallbladder distention with nonspecific pericholecystic fluid. The solid abdominal organs are suboptimally evaluated in the arterial phase of contrast but demonstrate no evidence for a n acute abnormality. There is no bowel dilatation, localized inflammatory fat stranding or free air apparent. There is obdulio e fluid present within the right paracolic gutter and pelvic cul-de-sac to a mild degree. The abdominal aorta is nonaneurysmal. Extensive atherosclerotic vascular calcification is seen involv ing the abdominal aorta and its branches. There is severe stenosis at the right renal artery origin a nd severe stenosis at the left renal artery origin. There is moderate celiac origin stenosis. There i s mild superior mesenteric artery origin stenosis. There is high-grade inferior mesenteric artery [place] stenosis. There is eccentric mural plaque involving the proximal right common iliac artery, producing approxima tely 50% stenosis over a short segment. No high-grade common iliac or external iliac artery stenosis is evident on either side. Multifocal atherosclerotic vascular calcification involves the internal il iac arteries with areas of short segment high-grade stenosis/occlusion. On the right, the right superficial femoral artery is occluded diffusely. The right profunda femoral artery demonstrates a moderate calcified origin stenosis. Postoperative changes of femoral/popliteal bypass are seen on the right. There is no contrast material seen within the distal aspects of the byp ass graft. This terminates near a right popliteal artery stent, which also appears occluded diffusely . There is no contrast opacification of the runoff vessels on the right on the initial sequence with some opacification of the perineal artery on the more delayed scan. On the left, the superficial femoral artery is occluded diffusely. The profunda femoral artery demons trates a moderate proximal stenosis. The profunda femoral artery on the left is not opacified subsequ ent to the level of the lesser trochanter. Postoperative changes of femoral to popliteal bypass are d emonstrated on the left. Contrast material is seen within the bypass graft. The lumen of the graft ap pears narrowed distally. There is diffuse circumferential high-grade narrowing at the proximal poplit eal artery. On the initial images, there is minimal contrast opacification of the distal left poplite al artery and run-off vessels. The delayed images demonstrate contrast material within the posterior tibial and anterior tibial arteries, to the level of the foot. The peroneal artery is also likely opa cified to the level of the foot. IMPRESSION: 1. Occlusion of the right distal femoral-popliteal bypass graft and popliteal artery with minimal opa cification of the right peroneal artery on the right. The right anterior tibial and posterior tibial arteries do not appear opacified. 2. High-grade left artery popliteal stenosis with three vessel run-off on the left on the more delaye d images. 3. Moderate gallbladder distention with nonspecific pericholecystic fluid. Correlate with concerns fo r cholecystitis. 4. Mild free intraperitoneal fluid, etiology and significance uncertain. 5. Bilateral pleural fluid, right greater than left. POS: [facility]
[2020-01-20 14:31] LABS: Vancomycin, Trough 11.9 ug/mL
[2020-01-20] MEDS: Vancomycin 1.5 GRAM/300 ML BAG 1.5 GM in Premix Bag 1 BAG IVPB SCH (15:33)
[2020-01-20] MEDS ORDERED: Iopamidol-370 76% 500 ML 1 ML ONE (15:37)
--- NOTE | 2020-01-20 15:54 | PDOC.HOSPP ---
- Subjective Encounter Date: 01/20/20 Encounter Time: 07:30 Subjective: Patient seen for follow-up regarding diabetic foot infection. He reports pain in the left leg. He denies fevers or chills. - Objective Vital Signs & Weight: Vital Signs (12 hours) Temp Pulse Resp BP Pulse Ox 01/20/20 11:50 97.9 F 61 17 130/60 89 L 01/20/20 07:30 98.4 F 58 L 17 104/55 L 90 L Weight Weight 163 lb I&O: 01/19/20 01/20/20 01/21/20 07:59 06:59 06:59 Intake Total Output Total Balance Result Diagrams: 01/20/20 04:21 01/20/20 04:21 Additional Labs: Accuchecks 01/20/20 01/20/20 01/19/20 11:16 05:51 20:20 POC Glucose 243 H 174 H 175 H I reviewed patient's labs and MAR EKG Reviewed by me: Yes (Telemetry: NSR) Hospitalist ROS - Review of Systems Cardiovascular: denies: chest pain, palpitations, orthopnea, paroxysmal noc. dyspnea, edema, light headedness Gastrointestinal: denies: nausea, vomiting, abdominal pain, diarrhea, constipation, melena, hematochezia Musculoskeletal: reports: leg pain, foot pain. denies: neck pain, shoulder pain, arm pain, back pain, hand pain - Medication Medications: Active Medications Generic Name Dose Route Start Last Admin Trade Name Freq PRN Reason Stop Dose Admin Acetaminophen/Codeine Phosphate 1 tab 01/18/20 15:03 01/20/20 11:42 Acetaminophen/Codeine 30-300mg Tablet PO 1 tab Q4H PRN Administration Moderate Pain (4-6) Aspirin 81 mg 01/20/20 09:00 01/20/20 09:37 Aspirin 81 Mg Enteric Coated Tablet PO 81 mg DAILY SELENA Administration Atorvastatin Calcium 40 mg 01/19/20 21:00 01/19/20 20:10 Atorvastatin Calcium 40 Mg Tab PO 40 mg HS SELENA Administration Clopidogrel Bisulfate 75 mg 01/19/20 09:00 01/20/20 09:37 Clopidogrel Bisulfate 75 Mg Tab PO 75 mg DAILY [facility] Administration Dextrose/Water 25 gm 01/18/20 16:27 01/19/20 05:38 Dextrose 50% Abboject 50 Ml Syringe SLOW IVP 25 gm PRN PRN Administration Hypoglycemia Duloxetine HCl 30 mg 01/19/20 09:00 01/20/20 09:37 Duloxetine 30 Mg Cap PO 30 mg DAILY [facility] Administration Furosemide 40 mg 01/19/20 09:00 01/20/20 09:37 Furosemide 40 Mg Tab PO 40 mg DAILY [facility] Administration Dextrose/Sodium Chloride 1,000 mls @ 45 mls/hr 01/19/20 05:45 01/20/20 05:18 D5 1/2 Ns IV 1,000 mls .[id number] [facility]LE[facility] Administration Insulin Glargine 20 units/ 0.2 mls @ 0 mls/hr 01/19/20 21:00 01/19/20 20:21 Miscellaneous Medication SC Not Given HS SELENA Vancomycin HCl 1.5 gm/ Device 300 mls @ 166.67 mls/hr 01/20/20 15:00 01/20/20 15:33 IVPB 300 mls 1500 SELE[facility] Administration Insulin Human Lispro 0 units 01/18/20 16:27 01/20/20 11:42 Humalog 300 Units/3 Ml Vial SC 3 unit .MILD SLIDING SCALE PRN Administration Mild Correctional Scale Lisinopril 2.5 mg 01/19/20 09:00 01/20/20 09:37 Lisinopril 2.5 Mg Tab PO 2.5 mg DAILY [facility] Administration Ondansetron HCl 4 mg 01/19/20 12:35 01/19/20 15:52 Ondansetron Pf 4 Mg/2 Ml Vial IVP 4 mg Q6H PRN Administration Nausea/Vomiting Pantoprazole Sodium 40 mg 01/19/20 09:00 01/20/20 09:37 Pantoprazole 40 Mg Tab PO 40 mg DAILY [facility] Administration Tramadol HCl 50 mg 01/18/20 15:03 01/20/20 05:20 Tramadol Hcl 50 Mg Tab PO 50 mg Q6H PRN Administration Mild Pain (1-3) - Exam General Appearance: awake alert Eye: anicteric sclera ENT: moist mucosa Neck: supple Heart: RRR Respiratory: CTAB Gastrointestinal: soft, non-tender, normal bowel sounds Gastrointestinal - other findings: Hughes sign negative Skin - other findings: Foot infection as documented Psychiatric: normal affect, normal behavior Hosp A/P - Plan #1 diabetic foot ulcer: Continue Zosyn, clindamycin and vancomycin for now. Consult infectious disease service for optimization of antibiotics. Consult wound care. #2. Peripheral vascular disease: Consult cardiovascular surgery for opinion and help with management. #3. Hypertension: Monitor vital signs and titrate antihypertensives as needed. Hypertension is controlled at this time. #4. Diabetes mellitus: Continue Accu-Cheks and insulin sliding scale. #5. Chronic kidney disease stage III: Stable. As needed pain medications. DVT prophylaxis with heparin.
[2020-01-20] MEDS: Cefepime 2 GM in Sodium Chloride 0.9% 100 ML IVPB SCH (17:31)
[2020-01-20] MEDS: metroNIDAZOLE 250 MG TAB PO SCH (20:10)
[2020-01-20] MEDS: Atorvastatin Calcium 40 MG TAB PO SCH (20:10)
[2020-01-20] MEDS: Insulin Glargine 20 UNITS in Pre-Filled Syringe SC SCH (20:12)
--- NOTE | 2020-01-20 21:32 | CON ---
DATE OF CONSULTATION: 01/20/2020 REASON FOR CONSULTATION: Left foot inflammatory process with peripheral vascular disease. HISTORY OF PRESENT ILLNESS: A 74-year-old, history of former smoking, ischemic cardiomyopathy, type 2 diabetes, hyperlipidemia, who has had peripheral vascular disease and right and left-sided revascularizations in the form of femoral-popliteal bypass procedures. He developed inflammatory process in the left fifth toe for the past few days with marked pain associated with callus, initially tried to handle it with [id number] callus pads which did not help. Then, he tried to remove the callus pad and somehow it tore off the skin with it. Obviously, probably it was necrotic with blistering, and then he got progressively more painful and developed areas of necrosis. He saw a scroll shear operator and he was told to be admitted. On arrival, his blood pressure 130/74, pulse 76, respirations 16, temperature 98, O2 saturation 96. The exam finding remarkable for a wound in the lateral aspect of left forefoot close to the fifth metatarsal. There was evidence of necrosis at the center and erythema around it. LABORATORY DATA: Other findings on admission are white cell count 25,000, hemoglobin 12.3, platelets 264, 91% neutrophils. Creatinine 1.6. Liver profile with alkaline phosphatase 126. Other elements were normal. Albumin 3.6. Lactic acid 1.6. Microbiology, two sets of blood cultures no growth thus far. IMAGING DATA: Demonstrated soft tissue swelling and gas in soft tissues, but no bony abnormalities. The patient had an arterial ultrasound which was abnormal, so Dr. Garcia was consulted and he performed an aorta with runoff to CTA which showed occlusion of the right distal femoral-popliteal bypass, popliteal artery, minimal opacification of the right peroneal artery, and high-grade left artery popliteal stenosis, three-vessel runoff on the left on the more delayed images. REVIEW OF SYSTEMS: Currently, Mr. Leigh is lying on slight right lateral decubitus. He is trying to sleep but cannot because of the pain in the left foot. No visual symptoms, sore throat, odynophagia, dysphagia. Actually, mild headaches. No dental pain. No dyspnea. No chest pain. No abdominal pain or diarrhea. No genitourinary symptoms. Voiding without difficulty in the urinal. No hematemesis, melena, hematochezia. No neurological symptoms. PAST MEDICAL HISTORY: Rheumatoid arthritis, CHF, ischemic cardiomyopathy, type 2 diabetes, peripheral vascular disease with various procedures for revascularization in right and left lower extremity, hyperlipidemia, hypertension, chronic obstructive lung disease. PAST SURGICAL HISTORY: Includes hernia repair; bypass graft surgery in the femoral-popliteal bypass, right and left side. SOCIAL HISTORY: Former smoker, quit more than 10 years ago. No alcoholic beverage use. ALLERGIES: COREG. CURRENT MEDICATIONS: 1. Aspirin. 2. Lipitor. 3. Plavix. 4. Dextrose. 5. Cymbalta. 6. Heparin insulin. 7. Toprol. 8. Zofran. 9. Protonix. 10. Zosyn. 11. Vancomycin. PHYSICAL EXAMINATION: VITAL SIGNS: T-max 99.2, blood pressure 130/60, heart rate 61, respiratory rate 17, O2 saturation ranging from 89 to 100. SKIN: Shows the area of ulceration of the fifth metatarsal skin site, left side, with central areas of necrosis. Peripheral IV access. GENITOURINARY: He is voiding in the urinal. LYMPHATICS: No lymphadenopathy. EXTREMITIES: Cool to touch. HEENT: Ocular movements conjugate. Numerous missing teeth. NECK: Supple. LUNGS: Symmetric clear breath sounds. HEART: S1 and S2, regular rate. No S3 or S4. ABDOMEN: Soft, not distended or tender. No ascites. No bladder distention. VASCULAR: I could not feel any popliteal pulses nor dorsalis pedis. Cap refill is delayed on both sides. NEUROLOGICAL: Cognitive function appears to be intact. LABORATORY DATA: White cell count is down to 14.5, hemoglobin 10.5, platelets 236 with 82% neutrophils; and creatinine 1.6 and now it is 1.47 with GFR 47. ASSESSMENT: Ischemic cardiomyopathy, peripheral vascular disease with prior revascularizations and now with evidence of ulceration with necrosis of the fifth metatarsal skin site, left side, with evidence of poor vascular supply to lower extremity. The vascular surgeon is on the case and he will review the CTA and then determine if there are any options to further improve his circulation or not. If not, then he is at high risk for higher levels of amputation. In the meantime, we will switch him to cefepime, continue vancomycin, add Flagyl, discontinue Zosyn since it tends to sometimes be associated with worsening renal function when used in combination with vancomycin. Job ID: [id number]
[2020-01-21 00:12] LABS: SARS-CoV-2 MS2 Positive; SARS-CoV-2 N Gene Negative; SARS-CoV-2 S Gene Negative; SARS-CoV-2 by NAA Not Detected (Not Detected); SARS-CoV-2 orf1ab Negative
[2020-01-21] MEDS: HumaLOG 300 UNITS/3 ML VIAL SC PRN ×2 (06:58→11:42)
[2020-01-21] MEDS: Acetaminophen/Codeine 30-300mg Tablet PO PRN ×2 (07:00→11:41)
[2020-01-21] MEDS: Aspirin 81 mg Enteric Coated Tablet PO SCH (08:28)
[2020-01-21] MEDS: Clopidogrel Bisulfate 75 MG TAB PO SCH (08:28)
[2020-01-21] MEDS: DULoxetine 30 MG CAP PO SCH (08:28)
[2020-01-21] MEDS: Furosemide 40 MG TAB PO SCH (08:29)
[2020-01-21] MEDS: metroNIDAZOLE 250 MG TAB PO SCH ×3 (08:29→20:19)
[2020-01-21] MEDS: Lisinopril 2.5 MG TAB PO SCH (08:30)
[2020-01-21] MEDS: Heparin 5,000 UNITS/ML VIAL SC SCH ×2 (08:30→20:19)
[2020-01-21] MEDS: traMADol HCl 50 MG TAB PO PRN ×2 (08:31→14:49)
[2020-01-21] MEDS: Dextrose 5 %-0.45 % NaCl 1,000 ML IV SCH (08:47)
--- NOTE | 2020-01-21 10:07 | PDOC.BPN ---
- Brief Progress Note Encounter Date: 01/21/20 Encounter Time: 10:04 Continues to complain of left foot pain. Yesterday still with episodes of bradycardia; however, heart rate normal this morning EXAM: VS: T 99.6 HR 75 BP 139/61 RR 18 SpO2 [ ] General: Alert and oriented, no acute distress, resting comfortably Pulmonary: No dyspnea or difficulty breathing Abdomen: Soft, non-distended, nontender CV: Regular rate and rhythm, palpable distal pulses Extremities: Stable left lateral foot ulcer I/O: [ ] oral intake [ ] UOP LABORATORY / IMAGING: White blood cell count 14.5, hemoglobin 10.5. Echocardiogram reviewed with ejection fraction of 20 to 25% PLAN: 74-year-old male with severe peripheral vascular disease and ulcer of left lateral foot Ischemic ulcer: Plan for operative debridement and possible amputation. The relative risk and benefits of this procedure were discussed in detail with the patient, specifically addressing the risk of wound complications and further amputation. Informed consent was obtained. We will post after cardiac clearance received. Surgery tentatively planned for January 22, 2020 Coronary artery disease/peripheral vascular disease: Evaluated by cardiothoracic surgery. Little to do for the patient's vascular status. We will request cardiac clearance preoperatively Discontinue aspirin and Plavix. Discussed with hospitalist team
--- NOTE | 2020-01-21 13:09 | PRG ---
DATE OF SERVICE: 01/21/2020 Studies have been reviewed. Echo showing an ejection fraction of 20% to 25%, which is considerably worse than found at the time of cardiac catheterization about five years ago, where ejection fraction was estimated at 40% to 45%. At that time, all three [place] coronary arteries were completely occluded and cardiac function was based on a STACK and an OM vein graft. patient also reports now that he has not smoked in past [address] scan as noted yesterday shows non-reconstructible vascular disease with a patent cadaveric vein bypass grafts, but both are in jeopardy of closing due to intrinsic disease and no runoff. At this time, I think the patient will ultimately be facing a major amputation of his left lower extremity and I have discussed this with him. Job ID: [id number] [facility]
--- NOTE | 2020-01-21 14:37 | PQF ---
CLINICAL DOCUMENTATION CLARIFICATION FORM Dear Dr.D. Braden Date: 01/21/2020, 01/22/20 [id number] Please exercise your independent, professional judgment in responding to the clarification form. Clinical indicators are provided on the bottom of this form for your review. Please check appropriate box(es) to clarify if the following diagnosis has been ruled in our ruled out: Sepsis [ ] Ruled in diagnosis [ ] Continue to treat [ ] Resolved [ ] Ruled out diagnosis [ ] Improving [ ] Cannot rule out diagnosis [ ] Other diagnosis [ ] Unable to determine In addition, please specify: Present on Admission (POA): [ ] Yes [ ] No [ ] Unable to determine For continuity of documentation, please document condition throughout progress notes and discharge summary. Thank You. To be completed by CDI/Coding staff for physician review: CLINICAL INDICATORS - SIGNS / SYMPTOMS / LABS / RESULTS AND LOCATION IN MR Pt reports callus on lt lateral aspect of foot, progressively becoming a wound over last two weeks, pt seen by infection prevention coordinator this am and sent to ER for IV abx. There is an ulcer and it is now black, Final DX : Lt foot cellulitis, Hyperglycemia (ED/01-17) Patient desats while sleeping overnight to low 80s, up to 90s on 2l/NC. No SOB. This AM after breakfast got nauseated, began vomiting and heart rate into 40s-50s. A/P: Sepsis, Diabetic foot ulcer Pt with possible necrotizing fasciitis. General sx consulted ( PN/Juanito) 01/18. WBC 25.1 01/17 WBC 18.5 01/18 WBC 14.5 01/19 RISK FACTORS / RESULTS AND LOCATION IN MR Advanced age ( 74), diabetic foot ulcer (PN/Juanito) 01/18 Ulceration w/ evidence of necrosis fifth metatarsal skin site( Paulo/consult) 01/19 TREATMENTS / RESULTS AND LOCATION IN MR Vancomycin IV (01/19 present) Clindamycin IV (01/17-01/19) 1 L Normal Saline (ED/01/17) Thank you! CDS Signature: Kimmy Dunn RN Phone #: [phone] Date: 01/21/2020 This is a permanent part of the Medical Record [facility]
[2020-01-21] MEDS: Vancomycin 1.5 GRAM/300 ML BAG 1.5 GM in Premix Bag 1 BAG IVPB SCH (14:46)
--- NOTE | 2020-01-21 15:04 | PQF ---
CLINICAL DOCUMENTATION CLARIFICATION FORM: Dear Dr. Iona Braden Date: 01/21/2020 1450, 01/22/20 1020 Please exercise your independent, professional judgment in responding to the clarification form. Clinical indicators are provided on the bottom of this form for your review. Please check appropriate box(es): [ ] Acute Respiratory Failure: [ ] with Hypoxia [ ] with Hypercapnia [ ] Acute On Chronic Respiratory Failure: [ ] with Hypoxia [ ] with Hypercapnia [ ] Acute Respiratory Failure due to: (etiology) [ ] Chronic Respiratory Failure only [ ] with Hypoxia [ ] with Hypercapnia [ ] Hypoxia [ ] Other diagnosis [ ] Unable to determine In addition, please specify: Present on Admission (POA): [ ] Yes [ ] No [ ] Unable to determine For continuity of documentation, please document condition throughout progress notes and discharge summary. Thank You. To be completed by CDI/Coding staff for physician review: CLINICAL INDICATORS - SIGNS / SYMPTOMS / LABS / RESULTS AND LOCATION IN MR Respirations 24 (01/17, 01/18) O2 sat 89% , 90% ( 01/19) CXR impression: persistent right basilar pleural parenchymal opacity consistent with a chronic small rt pleural effusion and likely right basilar atelectasis ( 01/17) Patient desated overnight while sleeping to low 80s, up to 90s on 2l/NC. No SOB. (PN/Juanito) 01/18 RISK FACTORS / RESULTS AND LOCATION IN MR Diabetic foot ulcer, possible necrotizing fasciitis (PN/Juanito) 01/18 TREATMENTS / RESULTS AND LOCATION IN MR OXYGEN SUPPLEMENTATION ( 01/18 PRESENT) LASIX PO ( 01/18 PRESENT) Acute Respiratory Failure: ABG pH < 7.35 or > 7.45; Decreased oxygen saturation (<90% room air or < 95% on oxygen); PCO2 > 50 mm Hg; PO2 < 60 mm Hg; Labored or rapid respirations ARDS: Dx Criteria [Andes ARDS]: Respiratory symptoms within one week of a known clinical insult (e.g. shock, infection, surgery, trauma) Bilateral opacities in CXR/Chest CT not due to CHF or fluid THANK YOU! CDS Signature: Kimmy Dunn RN Phone #: [phone] Date: 10/01/2019 1459 JEET
[2020-01-21] MEDS: Cefepime 2 GM in Sodium Chloride 0.9% 100 ML IVPB SCH (17:01)
--- NOTE | 2020-01-21 18:22 | PDOC.HOSPP ---
- Subjective Encounter Date: 01/21/20 Encounter Time: 11:00 Subjective: Patient seen for follow-up regarding diabetic foot infection. He denies any chest pain or shortness of breath. - Objective Vital Signs & Weight: Vital Signs (12 hours) Temp Pulse Resp BP Pulse Ox 01/21/20 16:00 52 L 18 118/56 L 95 01/21/20 12:00 98.7 F 64 16 136/65 99 01/21/20 08:00 100 01/21/20 07:51 175/79 H 01/21/20 07:50 99.9 F H 78 18 169/81 H 100 01/21/20 07:34 98 Weight Admit Weight 175 lb 0.752 oz Weight 165 lb 1.6 oz I&O: 01/20/20 01/21/20 01/22/20 06:59 06:59 06:59 Intake Total 2310 Output Total 525 Balance 1785 Result Diagrams: 01/20/20 04:21 01/20/20 04:21 Additional Labs: Accuchecks 01/21/20 01/21/20 01/20/20 10:37 05:53 20:09 POC Glucose 174 H 166 H 251 H Labs and MAR reviewed by me EKG Reviewed by me: Yes (Telemetry: NSR) Hospitalist ROS - Review of Systems Cardiovascular: denies: chest pain, palpitations, orthopnea, paroxysmal noc. dyspnea, edema, light headedness Gastrointestinal: denies: nausea, vomiting, abdominal pain, diarrhea, constipation, melena, hematochezia Musculoskeletal: reports: leg pain, foot pain - Medication Medications: Active Medications Generic Name Dose Route Start Last Admin Trade Name Freq PRN Reason Stop Dose Admin Acetaminophen/Codeine Phosphate 1 tab 01/18/20 15:03 01/21/20 11:41 Acetaminophen/Codeine 30-300mg Tablet PO 1 tab Q4H PRN Administration Moderate Pain (4-6) Aspirin 81 mg 01/20/20 09:00 01/21/20 08:28 Aspirin 81 Mg Enteric Coated Tablet PO 81 mg DAILY SELENA Administration Atorvastatin Calcium 40 mg 01/19/20 21:00 01/20/20 20:10 Atorvastatin Calcium 40 Mg Tab PO 40 mg HS SELENA Administration Clopidogrel Bisulfate 75 mg 01/19/20 09:00 01/21/20 08:28 Clopidogrel Bisulfate 75 Mg Tab PO 75 mg DAILY SELENA Administration Dextrose/Water 25 gm 01/18/20 16:27 01/19/20 05:38 Dextrose 50% Abboject 50 Ml Syringe SLOW IVP 25 gm PRN PRN Administration Hypoglycemia Duloxetine HCl 30 mg 01/19/20 09:00 01/21/20 08:28 Duloxetine 30 Mg Cap PO 30 mg DAILY SELENA Administration Furosemide 40 mg 01/19/20 09:00 01/21/20 08:29 Furosemide 40 Mg Tab PO 40 mg DAILY SELENA Administration Heparin Sodium (Porcine) 5,000 units 01/20/20 21:00 01/21/20 08:30 Heparin 5,000 Units/Ml Vial SC 5,000 units BID SELENA Administration Dextrose/Sodium Chloride 1,000 mls @ 45 mls/hr 01/19/20 05:45 01/21/20 08:47 D5 1/2 Ns IV 1,000 mls .[id number] SELENA Administration Insulin Glargine 20 units/ 0.2 mls @ 0 mls/hr 01/19/20 21:00 01/20/20 20:12 Miscellaneous Medication SC 0.2 mls HS SELENA Administration Vancomycin HCl 1.5 gm/ Device 300 mls @ 166.67 mls/hr 01/20/20 15:00 01/21/20 14:46 IVPB 300 mls 1500 SELENA Administration Cefepime HCl 2 gm/ Sodium 100 mls @ 200 mls/hr 01/20/20 16:00 01/21/20 17:01 Chloride IVPB 100 mls Q24HR SELENA Administration Insulin Human Lispro 0 units 01/18/20 16:27 01/21/20 11:42 Humalog 300 Units/3 Ml Vial SC 2 unit .MILD SLIDING SCALE PRN Administration Mild Correctional Scale Lisinopril 2.5 mg 01/19/20 09:00 01/21/20 08:30 Lisinopril 2.5 Mg Tab PO 2.5 mg DAILY SELENA Administration Metoprolol Succinate 50 mg 01/21/20 09:00 01/21/20 08:29 Metoprolol Succinate Xl 50 Mg Tab PO 50 mg DAILY SELEAN Administration Metronidazole 250 mg 01/20/20 21:00 01/21/20 14:50 Metronidazole 250 Mg Tab PO 250 mg TID SELENA Administration Ondansetron HCl 4 mg 01/19/20 12:35 01/19/20 15:52 Ondansetron Pf 4 Mg/2 Ml Vial IVP 4 mg Q6H PRN Administration Nausea/Vomiting Pantoprazole Sodium 40 mg 01/19/20 09:00 01/21/20 08:30 Pantoprazole 40 Mg Tab PO 40 mg DAILY SELENA Administration Tramadol HCl 50 mg 01/18/20 15:03 01/21/20 14:49 Tramadol Hcl 50 Mg Tab PO 50 mg Q6H PRN Administration Mild Pain (1-3) - Exam General Appearance: awake alert Eye: anicteric sclera ENT: normocephalic atraumatic, moist mucosa Neck: supple, symmetric Heart: RRR Respiratory: CTAB Gastrointestinal: soft, non-tender Extremities: no clubbing Skin - other findings: Wound as documented Neurological: cranial nerve grossly intact Musculoskeletal: normal tone, normal strength Psychiatric: normal affect Hosp A/P - Plan #1 diabetic foot ulcer: Continue cefepime and Flagyl. Appreciate infectious diseases and general surgery services input. #2. Peripheral vascular disease: Appreciate CV surgery input. #3. Hypertension: Hypertension controlled. #4. Diabetes mellitus: Continue Accu-Cheks and insulin sliding scale. #5. Chronic kidney disease stage III: Stable. DVT prophylaxis with heparin.
--- NOTE | 2020-01-21 20:10 | PDOC.CPN ---
- Subjective Date: 01/21/20 Time: 08:50 Interval history: No new overnight events. Wants to proceed with surgery to the foot. - Review of Systems General: denies: fever/chills, weight/appetite/sleep changes, night sweats, fatigue Respiratory: denies: cough, congestion, shortness of breath, exercise intolerance Cardiovascular: denies: chest pain, palpitation, edema, paroxysmal nocturnal dyspnea, orthopnea Gastrointestinal: denies: nausea, vomiting, diarrhea, constipation, abd pain, GI bleeding Musculoskeletal: reports: pain Neurological: denies: numbness, syncope, seizure, weakness - Objective Allergies/Adverse Reactions: Allergies Allergy/AdvReac Type Severity Reaction Status Date / Time carvedilol [From Coreg] Allergy Verified 01/18/20 12:54 Visit Medications: Current Medications Acetaminophen (Acetaminophen 325 Mg Tab) 650 mg PO Q6H PRN PRN Reason: Mild Pain (1-3) Acetaminophen/Codeine Phosphate (Acetaminophen/Codeine 30-300mg Tablet) 1 tab PO Q4H PRN PRN Reason: Moderate Pain (4-6) Last Admin: 01/21/20 11:41 Dose: 1 tab Documented by: Aspirin (Aspirin 81 Mg Enteric Coated Tablet) 81 mg PO DAILY [facility] Last Admin: 01/21/20 08:28 Dose: 81 mg Documented by: Atorvastatin Calcium (Atorvastatin Calcium 40 Mg Tab) 40 mg PO HS [facility] Last Admin: 01/20/20 20:10 Dose: 40 mg Documented by: Clopidogrel Bisulfate (Clopidogrel Bisulfate 75 Mg Tab) 75 mg PO DAILY [facility] Last Admin: 01/21/20 08:28 Dose: 75 mg Documented by: Dextrose/Water (Dextrose 50% Abboject 50 Ml Syringe) 25 gm SLOW IVP PRN PRN PRN Reason: Hypoglycemia Last Admin: 01/19/20 05:38 Dose: 25 gm Documented by: Duloxetine HCl (Duloxetine 30 Mg Cap) 30 mg PO DAILY [facility] Last Admin: 01/21/20 08:28 Dose: 30 mg Documented by: Furosemide (Furosemide 40 Mg Tab) 40 mg PO DAILY [facility] Last Admin: 01/21/20 08:29 Dose: 40 mg Documented by: Glucagon (Glucagon 1 Mg/Ml Vial) 1 mg IM PRN PRN PRN Reason: Hypoglycemia Heparin Sodium (Porcine) (Heparin 5,000 Units/Ml Vial) 5,000 units SC BID [facility] Last Admin: 01/21/20 08:30 Dose: 5,000 units Documented by: Dextrose/Water (D5w) 1,000 mls @ 0 mls/hr IV .Q0M PRN PRN Reason: Hypoglycemia Dextrose/Sodium Chloride (D5 1/2 Ns) 1,000 mls @ 45 mls/hr IV .[id number] [facility] Last Admin: 01/21/20 08:47 Dose: 1,000 mls Documented by: Insulin Glargine 20 units/ (Miscellaneous Medication) 0.2 mls @ 0 mls/hr SC HS [facility] Last Admin: 01/20/20 20:12 Dose: 0.2 mls Documented by: Vancomycin HCl 1.5 gm/ Device 300 mls @ 166.67 mls/hr IVPB 1500 [facility] Last Admin: 01/21/20 14:46 Dose: 300 mls Documented by: Cefepime HCl 2 gm/ Sodium (Chloride) 100 mls @ 200 mls/hr IVPB Q24HR [facility] Last Admin: 01/21/20 17:01 Dose: 100 mls Documented by: Insulin Human Lispro (Humalog 300 Units/3 Ml Vial) 0 units SC .MILD SLIDING SCALE PRN PRN Reason: Mild Correctional Scale Last Admin: 01/21/20 11:42 Dose: 2 unit Documented by: Lisinopril (Lisinopril 2.5 Mg Tab) 2.5 mg PO DAILY [facility] Last Admin: 01/21/20 08:30 Dose: 2.5 mg Documented by: Metoprolol Succinate (Metoprolol Succinate Xl 50 Mg Tab) 50 mg PO DAILY [facility] Last Admin: 01/21/20 08:29 Dose: 50 mg Documented by: Metronidazole (Metronidazole 250 Mg Tab) 250 mg PO TID [facility] Last Admin: 01/21/20 14:50 Dose: 250 mg Documented by: Miscellaneous Medication (Pharmacy To Dose Vancomycin) 1 each IVPB PRN PRN PRN Reason: Pharmacy to dose Ondansetron HCl (Ondansetron Pf 4 Mg/2 Ml Vial) 4 mg IVP Q6H PRN PRN Reason: Nausea/Vomiting Last Admin: 01/19/20 15:52 Dose: 4 mg Documented by: Ondansetron HCl (Ondansetron Odt 4 Mg Tab) 4 mg SL Q6H PRN PRN Reason: Nausea/Vomiting Pantoprazole Sodium (Pantoprazole 40 Mg Tab) 40 mg PO DAILY SELENA Last Admin: 01/21/20 08:30 Dose: 40 mg Documented by: Tramadol HCl (Tramadol Hcl 50 Mg Tab) 50 mg PO Q6H PRN PRN Reason: Mild Pain (1-3) Last Admin: 01/21/20 14:49 Dose: 50 mg Documented by: Vital Signs & Weight: Vital Signs Temp Pulse Resp BP Pulse Ox 01/21/20 16:00 52 L 18 118/56 L 95 01/21/20 12:00 98.7 F 64 16 136/65 99 Admit Weight 175 lb 0.752 oz Weight 165 lb 1.6 oz - Physical Exam General: alert & oriented x3, no apparent distress HEENT: normocephaly Neck: no JVD/HJR Cardiac: regular rate and rhythm Lungs: clear to auscultation Neuro: grossly intact Abdomen: unremarkable Extremities: 1+ LE edema Skin: wound Musculoskeletal: other (pain in foot.) - Labs Result Diagrams: 01/20/20 04:21 01/20/20 04:21 Troponin/CKMB CK-MB (CK-2) 1.6 ng/mL (0-6.6) 01/19/20 11:38 Troponin I 1.012 ng/mL (< 0.028) H* 01/19/20 11:38 - Telemetry Sinus rhythms and dysrhythmias: sinus rhythm - Assessment/Plan Assessment/Plan: 1. Diabetic foot ulcer. Plan for probable surgical amputation. 2. CKDz. Stable at present. 3. DM 4. PVD. Followed by CV surgery. 5. HTN. 6. Overall cardiac status is stable.Anemia. Reasonable. No transfusion indicated.
[2020-01-21] MEDS: Insulin Glargine 20 UNITS in Pre-Filled Syringe SC SCH (20:19)
[2020-01-21] MEDS: Atorvastatin Calcium 40 MG TAB PO SCH (20:19)
[2020-01-22] MEDS: Clopidogrel Bisulfate 75 MG TAB PO SCH (08:31)
[2020-01-22] MEDS: Aspirin 81 mg Enteric Coated Tablet PO SCH (08:31)
[2020-01-22] MEDS: Heparin 5,000 UNITS/ML VIAL SC SCH ×2 (08:31→20:24)
[2020-01-22] MEDS: Furosemide 40 MG TAB PO SCH (08:44)
[2020-01-22] MEDS: DULoxetine 30 MG CAP PO SCH (08:44)
[2020-01-22] MEDS: metroNIDAZOLE 250 MG TAB PO SCH ×3 (08:44→20:24)
[2020-01-22] MEDS: Lisinopril 2.5 MG TAB PO SCH (08:45)
[2020-01-22] MEDS: Dextrose 5 %-0.45 % NaCl 1,000 ML IV SCH (08:46)
[2020-01-22] MEDS ORDERED: Bupivacaine HCl 0.5%/Epinephrine 1:200,000/PF 30 ml Vial ONE (12:46)
--- NOTE | 2020-01-22 13:10 | PDOC.CPN ---
- Subjective Date: 01/22/20 Time: 13:05 Interval history: No current complaints No CP, SOB noted Pt in need of cardiac clearance - Objective Allergies/Adverse Reactions: Allergies Allergy/AdvReac Type Severity Reaction Status Date / Time carvedilol [From Coreg] Allergy Verified 01/18/20 12:54 Visit Medications: Current Medications Acetaminophen (Acetaminophen 325 Mg Tab) 650 mg PO Q6H PRN PRN Reason: Mild Pain (1-3) Acetaminophen/Codeine Phosphate (Acetaminophen/Codeine 30-300mg Tablet) 1 tab PO Q4H PRN PRN Reason: Moderate Pain (4-6) Last Admin: 01/21/20 11:41 Dose: 1 tab Documented by: Aspirin (Aspirin 81 Mg Enteric Coated Tablet) 81 mg PO DAILY [facility] Last Admin: 01/22/20 08:31 Dose: Not Given Documented by: Atorvastatin Calcium (Atorvastatin Calcium 40 Mg Tab) 40 mg PO HS [facility] Last Admin: 01/21/20 20:19 Dose: 40 mg Documented by: Clopidogrel Bisulfate (Clopidogrel Bisulfate 75 Mg Tab) 75 mg PO DAILY [facility] Last Admin: 01/22/20 08:31 Dose: Not Given Documented by: Dextrose/Water (Dextrose 50% Abboject 50 Ml Syringe) 25 gm SLOW IVP PRN PRN PRN Reason: Hypoglycemia Last Admin: 01/19/20 05:38 Dose: 25 gm Documented by: Duloxetine HCl (Duloxetine 30 Mg Cap) 30 mg PO DAILY [facility] Last Admin: 01/22/20 08:44 Dose: 30 mg Documented by: Furosemide (Furosemide 40 Mg Tab) 40 mg PO DAILY [facility] Last Admin: 01/22/20 08:44 Dose: 40 mg Documented by: Glucagon (Glucagon 1 Mg/Ml Vial) 1 mg IM PRN PRN PRN Reason: Hypoglycemia Heparin Sodium (Porcine) (Heparin 5,000 Units/Ml Vial) 5,000 units SC BID [facility] Last Admin: 01/22/20 08:31 Dose: Not Given Documented by: Dextrose/Water (D5w) 1,000 mls @ 0 mls/hr IV .Q0M PRN PRN Reason: Hypoglycemia Dextrose/Sodium Chloride (D5 1/2 Ns) 1,000 mls @ 45 mls/hr IV .[id number] [facility] Last Admin: 01/22/20 08:46 Dose: Not Given Documented by: Insulin Glargine 20 units/ (Miscellaneous Medication) 0.2 mls @ 0 mls/hr SC HS [facility] Last Admin: 01/21/20 20:19 Dose: 0.2 mls Documented by: Vancomycin HCl 1.5 gm/ Device 300 mls @ 166.67 mls/hr IVPB 1500 [facility] Last Admin: 01/21/20 14:46 Dose: 300 mls Documented by: Cefepime HCl 2 gm/ Sodium (Chloride) 100 mls @ 200 mls/hr IVPB Q24HR [facility] Last Admin: 01/21/20 17:01 Dose: 100 mls Documented by: Insulin Human Lispro (Humalog 300 Units/3 Ml Vial) 0 units SC .MILD SLIDING SCALE PRN PRN Reason: Mild Correctional Scale Last Admin: 01/21/20 11:42 Dose: 2 unit Documented by: Lisinopril (Lisinopril 2.5 Mg Tab) 2.5 mg PO DAILY [facility] Last Admin: 01/22/20 08:45 Dose: 2.5 mg Documented by: Metoprolol Succinate (Metoprolol Succinate Xl 50 Mg Tab) 50 mg PO DAILY [facility] Last Admin: 01/22/20 08:44 Dose: 50 mg Documented by: Metronidazole (Metronidazole 250 Mg Tab) 250 mg PO TID [facility] Last Admin: 01/22/20 08:44 Dose: 250 mg Documented by: Miscellaneous Medication (Pharmacy To Dose Vancomycin) 1 each IVPB PRN PRN PRN Reason: Pharmacy to dose Ondansetron HCl (Ondansetron Pf 4 Mg/2 Ml Vial) 4 mg IVP Q6H PRN PRN Reason: Nausea/Vomiting Last Admin: 01/19/20 15:52 Dose: 4 mg Documented by: Ondansetron HCl (Ondansetron Odt 4 Mg Tab) 4 mg SL Q6H PRN PRN Reason: Nausea/Vomiting Pantoprazole Sodium (Pantoprazole 40 Mg Tab) 40 mg PO DAILY [facility] Last Admin: 01/22/20 08:44 Dose: 40 mg Documented by: Tramadol HCl (Tramadol Hcl 50 Mg Tab) 50 mg PO Q6H PRN PRN Reason: Mild Pain (1-3) Last Admin: 01/21/20 14:49 Dose: 50 mg Documented by: Vital Signs & Weight: Vital Signs Temp Pulse Resp BP BP Pulse Ox 01/22/20 11:31 98.5 F 56 L 16 128/67 97 01/22/20 08:36 94 L 01/22/20 08:00 95 01/22/20 07:21 98.5 F 59 L 16 122/58 L 94 L 01/22/20 03:49 98.1 F 56 L 12 121/58 L 99 01/22/20 01:26 99 Admit Weight 175 lb 0.752 oz Weight 164 lb 14.4 oz - Physical Exam General: alert & oriented x3 HEENT: mucus membranes moist Neck: supple neck Cardiac: regular rate and rhythm, no murmur, regular rate Lungs: clear to auscultation Extremities: other: (no popliteal pulse noted on left) - Labs Result Diagrams: 01/20/20 04:21 01/20/20 04:21 Troponin/CKMB CK-MB (CK-2) 1.6 ng/mL (0-6.6) 01/19/20 11:38 Troponin I 1.012 ng/mL (< 0.028) H* 01/19/20 11:38 - Assessment/Plan Assessment/Plan: A/P Severe PAD Severe cardiomyopathy Severe CAD Renal insufficiency Pt with symptoms of angina Pt recent stress test in 2019 with ischemia to lateral wall and anterior wall, scar to inferior wall After review of angio in 2016, Pt with severe stenosis of the D1 and OM2 and OMB3 without flow noted from the SVG to the OMB; RCA is chronically occluded without graft Stress test corresponds to angio in 2016 Given no symptoms but significant ischemia, pt felt to be at moderate risk for compilations; pt not felt to be prohibitive. Discussed with daughter the nature apolinar the risks but unfortunately without amputation and possible infection, pt will have poor prognosis. At this point the benefits outweigh the risks on proceeding with surgery despite risks.
[2020-01-22 13:34] LABS: Vancomycin, Trough 19.9 ug/mL
[2020-01-22] MEDS ORDERED: Vancomycin 1.5 GRAM/300 ML BAG ONE (14:09)
[2020-01-22] MEDS ORDERED: Phenylephrine 10 MG/ML VIAL ONE (14:44)
[2020-01-22] MEDS ORDERED: Fentanyl 100 MCG/2 ML VIAL ONE ×2 (15:02→16:19)
[2020-01-22] MEDS: Vancomycin 1.5 GRAM/300 ML BAG 1.5 GM in Premix Bag 1 BAG IVPB SCH (15:07)
--- NOTE | 2020-01-22 16:08 | PDOC.HOSPP ---
- Subjective Encounter Date: 01/22/20 Encounter Time: 06:30 Subjective: Patient seen for follow-up regarding diabetic foot infection. He denies fevers or chills. Awaiting surgery. - Objective Vital Signs & Weight: Vital Signs (12 hours) Temp Pulse Resp BP Pulse Ox 01/22/20 11:31 98.5 F 56 L 16 128/67 97 01/22/20 08:36 94 L 01/22/20 08:00 95 01/22/20 07:21 98.5 F 59 L 16 122/58 L 94 L Weight Admit Weight 175 lb 0.752 oz Weight 164 lb 14.4 oz I&O: 01/21/20 01/22/20 01/23/20 06:59 06:59 06:59 Intake Total 2310 2300 Output Total 525 450 Balance 1785 1850 Result Diagrams: 01/20/20 04:21 01/20/20 04:21 Additional Labs: Accuchecks 01/22/20 01/22/20 01/22/20 13:47 11:11 05:40 POC Glucose 178 H 201 H 180 H 01/21/20 01/21/20 20:17 16:49 POC Glucose 189 H 194 H I reviewed patient's labs and MAR EKG Reviewed by me: Yes (Telemetry: NSR) Hospitalist ROS - Review of Systems Constitutional: denies: fever, chills, sweats, weakness, malaise Cardiovascular: denies: chest pain, palpitations, orthopnea, paroxysmal noc. dyspnea, edema, light headedness Musculoskeletal: reports: leg pain, foot pain - Medication Medications: Active Medications Generic Name Dose Route Start Last Admin Trade Name Freq PRN Reason Stop Dose Admin Acetaminophen/Codeine Phosphate 1 tab 01/18/20 15:03 01/21/20 11:41 Acetaminophen/Codeine 30-300mg Tablet PO 1 tab Q4H PRN Administration Moderate Pain (4-6) Aspirin 81 mg 01/20/20 09:00 01/22/20 08:31 Aspirin 81 Mg Enteric Coated Tablet PO Not Given DAILY [facility] Atorvastatin Calcium 40 mg 01/19/20 21:00 01/21/20 20:19 Atorvastatin Calcium 40 Mg Tab PO 40 mg HS [facility] Administration Clopidogrel Bisulfate 75 mg 01/19/20 09:00 01/22/20 08:31 Clopidogrel Bisulfate 75 Mg Tab PO Not Given DAILY [facility] Dextrose/Water 25 gm 01/18/20 16:27 01/19/20 05:38 Dextrose 50% Abboject 50 Ml Syringe SLOW IVP 25 gm PRN PRN Administration Hypoglycemia Duloxetine HCl 30 mg 01/19/20 09:00 01/22/20 08:44 Duloxetine 30 Mg Cap PO 30 mg DAILY [facility] Administration Furosemide 40 mg 01/19/20 09:00 01/22/20 08:44 Furosemide 40 Mg Tab PO 40 mg DAILY [facility] Administration Heparin Sodium (Porcine) 5,000 units 01/20/20 21:00 01/22/20 08:31 Heparin 5,000 Units/Ml Vial SC Not Given BID [facility] Dextrose/Sodium Chloride 1,000 mls @ 45 mls/hr 01/19/20 05:45 01/22/20 08:46 D5 1/2 Ns IV Not Given .[id number] [facility] Insulin Glargine 20 units/ 0.2 mls @ 0 mls/hr 01/19/20 21:00 01/21/20 20:19 Miscellaneous Medication SC 0.2 mls HS [facility] Administration Vancomycin HCl 1.5 gm/ Device 300 mls @ 166.67 mls/hr 01/20/20 15:00 01/22/20 15:07 IVPB 300 mls 1500 [facility] Administration Cefepime HCl 2 gm/ Sodium 100 mls @ 200 mls/hr 01/20/20 16:00 01/21/20 17:01 Chloride IVPB 100 mls Q24HR [facility] Administration Insulin Human Lispro 0 units 01/18/20 16:27 01/21/20 11:42 Humalog 300 Units/3 Ml Vial SC 2 unit .MILD SLIDING SCALE PRN Administration Mild Correctional Scale Lisinopril 2.5 mg 01/19/20 09:00 01/22/20 08:45 Lisinopril 2.5 Mg Tab PO 2.5 mg DAILY [facility] Administration Metoprolol Succinate 50 mg 01/21/20 09:00 01/22/20 08:44 Metoprolol Succinate Xl 50 Mg Tab PO 50 mg DAILY [facility] Administration Metronidazole 250 mg 01/20/20 21:00 01/22/20 15:08 Metronidazole 250 Mg Tab PO Not Given TID [facility] Ondansetron HCl 4 mg 01/19/20 12:35 01/19/20 15:52 Ondansetron Pf 4 Mg/2 Ml Vial IVP 4 mg Q6H PRN Administration Nausea/Vomiting Pantoprazole Sodium 40 mg 01/19/20 09:00 01/22/20 08:44 Pantoprazole 40 Mg Tab PO 40 mg DAILY [facility] Administration Tramadol HCl 50 mg 01/18/20 15:03 01/21/20 14:49 Tramadol Hcl 50 Mg Tab PO 50 mg Q6H PRN Administration Mild Pain (1-3) - Exam General Appearance: awake alert Eye: anicteric sclera ENT: moist mucosa Neck: supple Heart: RRR Respiratory: CTAB Gastrointestinal: soft, non-tender Skin: no rashes Psychiatric: normal affect, normal behavior Hosp A/P - Plan #1 diabetic foot ulcer: Patient to go for surgery today. #2. Peripheral vascular disease: No revascularization targets at this time. #3. Hypertension: Hypertension controlled. #4. Diabetes mellitus: Continue Accu-Cheks and insulin sliding scale. #5. Chronic kidney disease stage III: Stable. DVT prophylaxis with heparin. Sepsis, resolved, not present on admission. Acute hypoxic respiratory failure, present on admission.
[2020-01-22] MEDS ORDERED: Midazolam HCl 2 mg/2 ml Vial ONE (16:19)
[2020-01-22] MEDS ORDERED: Ondansetron HCl/PF 4 MG/2 ML Vial IVP PRN (17:19)
[2020-01-22] MEDS ORDERED: Promethazine HCl 25 MG/ML VIAL IM PRN (17:19)
[2020-01-22] MEDS ORDERED: Promethazine HCl 25 MG/ML VIAL SLOW IVP PRN (17:19)
--- NOTE | 2020-01-22 17:24 | PDOC.OP ---
Operative Note - Operative Note Operative Note: DATE OF SURGERY: January 22, 2020 SURGEON: Herbert Poe MD PREOPERATIVE DIAGNOSIS: Gangrene left foot POSTOPERATIVE DIAGNOSIS: Gangrene left foot PROCEDURE: Debridement of skin, subcutaneous tissue, muscle, and fascia left foot (8 x 2 cm) Ray amputation left fifth toe INDICATIONS: 74-year-old male with a history of diabetes and severe peripheral vascular disease presented with a left lateral foot ulcer with gangrene. PROCEDURE IN DETAIL: The patient was brought to the operating room after a left lower extremity block. He was positioned on the operating room table, and the left lower extremity was prepped and draped in the usual fashion. Prior to beginning the procedure, a complete timeout was performed with all members of the operative team being present and in agreement. We began by debriding the superficial skin and subcutaneous tissues of the ulcer. This measured a centimeters by 2 cm. The underlying muscle and fascia were also found to be nonviable. These were debrided using sharp dissection (Metzenbaum scissors), until viable, bleeding tissue was reached. After this debridement, it was noted that the fifth metatarsal phalangeal joint was exposed. The debridement incision was extended to include the left fifth toe. The subtendinous tissues were divided using electrocautery. A periosteal elevator was used to clear the fifth metatarsal. The fifth metatarsal was divided approximately at its midpoint and rasped smoothed with a bone rasp. The remaining soft tissue was reapproximated over the bone and using 2-0 Vicryl sutures in interrupted fashion. The wound was irrigated and hemostasis achieved. The remaining wound was left open to heal by secondary intention and was dressed with dry to dry dressings. At the conclusion of the case, all sponge and isthmic counts were correct. ESTIMATED BLOOD LOSS: Minimal COMPLICATIONS: None INTRAOPERATIVE BLOOD TRANSFUSIONS: None GRAFTS / IMPLANTS: None SPECIMENS: Left fifth ray Skin, subcutaneous tissue, muscle, and fascia for culture DISPOSITION: The patient was transported to the postoperative recovery unit in good conditions to be returned to the floor when criteria met.
[2020-01-22] MEDS: Cefepime 2 GM in Sodium Chloride 0.9% 100 ML IVPB SCH (17:41)
[2020-01-22] MEDS: Ondansetron PF 4 MG/2 ML Vial IVP PRN (20:19)
[2020-01-22] MEDS: Insulin Glargine 20 UNITS in Pre-Filled Syringe SC SCH (20:24)
[2020-01-22] MEDS: Atorvastatin Calcium 40 MG TAB PO SCH (20:24)
[2020-01-23] MEDS: HumaLOG 300 UNITS/3 ML VIAL SC PRN ×3 (05:43→17:17)
[2020-01-23] MEDS: Dextrose 5 %-0.45 % NaCl 1,000 ML IV SCH (08:13)
[2020-01-23] MEDS: Heparin 5,000 UNITS/ML VIAL SC SCH ×2 (08:17→21:12)
[2020-01-23] MEDS: Clopidogrel Bisulfate 75 MG TAB PO SCH (08:17)
[2020-01-23] MEDS: Furosemide 40 MG TAB PO SCH (08:17)
[2020-01-23] MEDS: DULoxetine 30 MG CAP PO SCH (08:17)
[2020-01-23] MEDS: Lisinopril 2.5 MG TAB PO SCH (08:17)
[2020-01-23] MEDS: metroNIDAZOLE 250 MG TAB PO SCH ×3 (08:17→21:11)
[2020-01-23] MEDS: Aspirin 81 mg Enteric Coated Tablet PO SCH (08:17)
[2020-01-23] MEDS: Benzonatate 100 MG CAP PO PRN ×2 (11:35→21:11)
[2020-01-23] MEDS: Cefepime 2 GM in Sodium Chloride 0.9% 100 ML IVPB SCH (15:04)
[2020-01-23] MEDS: Vancomycin 1.5 GRAM/300 ML BAG 1.5 GM in Premix Bag 1 BAG IVPB SCH (15:05)
--- NOTE | 2020-01-23 15:13 | PDOC.HOSPP ---
- Subjective Encounter Date: 01/23/20 Encounter Time: 10:20 Subjective: Patient seen for follow-up for diabetic foot infection. He denies chest pain or shortness of breath. - Objective Vital Signs & Weight: Vital Signs (12 hours) Temp Pulse Resp BP BP Pulse Ox 01/23/20 11:27 98.1 F 56 L 18 160/70 H 96 01/23/20 08:17 58 L 01/23/20 07:05 97.9 F 58 L 20 136/97 H 92 L 01/23/20 03:30 93 L 01/23/20 03:18 98.7 F 59 L 15 118/61 94 L Weight Admit Weight 175 lb 0.752 oz Weight 170 lb 6.4 oz I&O: 01/22/20 01/23/20 01/24/20 06:59 06:59 06:59 Intake Total 2300 1725 Output Total 450 1150 Balance 1850 575 Result Diagrams: 01/20/20 04:21 01/23/20 10:34 Additional Labs: Accuchecks 01/23/20 01/23/20 01/22/20 10:37 05:25 19:22 POC Glucose 340 H 395 H 163 H Labs and MAR reviewed by me EKG Reviewed by me: Yes (Telemetry shows normal sinus rhythm) Hospitalist ROS - Review of Systems Cardiovascular: denies: chest pain, palpitations, orthopnea, paroxysmal noc. dyspnea, edema, light headedness Gastrointestinal: denies: nausea, vomiting, abdominal pain, diarrhea, constipation, melena, hematochezia - Medication Medications: Active Medications Generic Name Dose Route Start Last Admin Trade Name Freq PRN Reason Stop Dose Admin Acetaminophen/Codeine Phosphate 1 tab 01/18/20 15:03 01/21/20 11:41 Acetaminophen/Codeine 30-300mg Tablet PO 1 tab Q4H PRN Administration Moderate Pain (4-6) Aspirin 81 mg 01/20/20 09:00 01/23/20 08:17 Aspirin 81 Mg Enteric Coated Tablet PO 81 mg DAILY [facility] Administration Atorvastatin Calcium 40 mg 01/19/20 21:00 01/22/20 20:24 Atorvastatin Calcium 40 Mg Tab PO 40 mg HS [facility] Administration Benzonatate 100 mg 01/23/20 11:27 01/23/20 11:35 Benzonatate 100 Mg Cap PO 100 mg TIDPRN PRN Administration Cough Clopidogrel Bisulfate 75 mg 01/19/20 09:00 01/23/20 08:17 Clopidogrel Bisulfate 75 Mg Tab PO 75 mg DAILY [facility] Administration Dextrose/Water 25 gm 01/18/20 16:27 01/19/20 05:38 Dextrose 50% Abboject 50 Ml Syringe SLOW IVP 25 gm PRN PRN Administration Hypoglycemia Duloxetine HCl 30 mg 01/19/20 09:00 01/23/20 08:17 Duloxetine 30 Mg Cap PO 30 mg DAILY [facility] Administration Furosemide 40 mg 01/19/20 09:00 01/23/20 08:17 Furosemide 40 Mg Tab PO 40 mg DAILY [facility] Administration Heparin Sodium (Porcine) 5,000 units 01/20/20 21:00 01/23/20 08:17 Heparin 5,000 Units/Ml Vial SC 5,000 units BID [facility] Administration Dextrose/Sodium Chloride 1,000 mls @ 45 mls/hr 01/19/20 05:45 01/23/20 08:13 D5 1/2 Ns IV 1,000 mls .[id number] [facility] Administration Insulin Glargine 20 units/ 0.2 mls @ 0 mls/hr 01/19/20 21:00 01/22/20 20:24 Miscellaneous Medication SC 0.2 mls HS [facility] Administration Vancomycin HCl 1.5 gm/ Device 300 mls @ 166.67 mls/hr 01/20/20 15:00 01/23/20 15:05 IVPB 300 mls 1500 [facility] Administration Cefepime HCl 2 gm/ Sodium 100 mls @ 200 mls/hr 01/20/20 16:00 01/23/20 15:04 Chloride IVPB 100 mls Q24HR [facility] Administration Insulin Human Lispro 0 units 01/18/20 16:27 01/23/20 11:25 Humalog 300 Units/3 Ml Vial SC 5 unit .MILD SLIDING SCALE PRN Administration Mild Correctional Scale Lisinopril 2.5 mg 01/19/20 09:00 01/23/20 08:17 Lisinopril 2.5 Mg Tab PO 2.5 mg DAILY [facility] Administration Metoprolol Succinate 50 mg 01/21/20 09:00 01/23/20 08:17 Metoprolol Succinate Xl 50 Mg Tab PO 50 mg DAILY [facility] Administration Metronidazole 250 mg 01/20/20 21:00 01/23/20 15:04 Metronidazole 250 Mg Tab PO 250 mg TID [facility] Administration Ondansetron HCl 4 mg 01/19/20 12:35 01/22/20 20:19 Ondansetron Pf 4 Mg/2 Ml Vial IVP 4 mg Q6H PRN Administration Nausea/Vomiting Pantoprazole Sodium 40 mg 01/19/20 09:00 01/23/20 08:19 Pantoprazole 40 Mg Tab PO 40 mg DAILY [facility] Administration Tramadol HCl 50 mg 01/18/20 15:03 01/21/20 14:49 Tramadol Hcl 50 Mg Tab PO 50 mg Q6H PRN Administration Mild Pain (1-3) - Exam General Appearance: awake alert Eye: anicteric sclera ENT: moist mucosa Neck: supple Heart: RRR Respiratory: CTAB Gastrointestinal: soft, non-tender Psychiatric: normal affect, normal behavior Hosp A/P - Plan #1 diabetic foot ulcer: Continue cefepime, vancomycin and Flagyl. #2. Peripheral vascular disease: No revascularization targets at this time. Appreciate CV surgery input. #3. Hypertension: Hypertension controlled. #4. Diabetes mellitus: Continue Accu-Cheks and insulin sliding scale. #5. Chronic kidney disease stage III: Stable. DVT prophylaxis with heparin. Sepsis, resolved, not present on admission. Acute hypoxic respiratory failure, present on admission.
--- NOTE | 2020-01-23 15:34 | PDOC.BPN ---
- Brief Progress Note Encounter Date: 01/23/20 Encounter Time: 15:31 Doing well s/p debridement and left fifth ray amputation. Postoperative pain well controlled with current regimen. Tolerating regular diet, without nausea or vomiting. Endorses flatus and bowel movements. Ambulating independently. EXAM: VS: Afebrile, vital signs within normal limits General: Alert and oriented, no acute distress, resting comfortably Pulmonary: No dyspnea or difficulty breathing Abdomen: Soft, non-distended, tender CV: Regular rate and rhythm, palpable distal pulses Extremities: No edema, left lower extremity clean and dressed. Remaining toes neurovascularly intact I/O: [ ] oral intake [ ] UOP LABORATORY / IMAGING: No new labs for CBC PLAN: 74-year-old male with diabetes and severe peripheral vascular disease complicated by gangrenous ulcer of the left lateral foot, status post debridement of ulcer and left fifth ray amputation Continued management per hospitalist team Fracture shoe for ambulation Wound care to evaluate and coordinate outpatient therapy Cleared for discharge from surgical standpoint. Please call for any further questions Follow-up Dr. Poe 2 weeks
--- NOTE | 2020-01-23 15:37 | CON ---
DATE OF CONSULTATION: SUBJECTIVE: Mr. Valverde yesterday underwent successful amputation. No current complaints. He was seen this morning, eating without any issues. OBJECTIVE: VITAL SIGNS: Blood pressure 125/78, pulse 81, and temperature 98.6. LUNGS: Clear to auscultation. HEART: Regular rate and rhythm. ABDOMEN: Soft, nontender, nondistended. PERTINENT LABORATORY DATA: Hemoglobin 10.5, hematocrit 33.2. Creatinine 1.46. IMPRESSION: 1. Severe peripheral vascular disease. 2. Ischemic cardiomyopathy. 3. Severe coronary artery disease. 4. Status post bypass surgery. RECOMMENDATIONS: Mr. Leigh from a CV standpoint is stable. Recommend continuing aspirin and atorvastatin in addition to metoprolol. He is also on lisinopril. From a CV standpoint, he appears stable. We will follow peripherally. Please call if questions arise. Job ID: [id number]
--- NOTE | 2020-01-23 19:26 | EKG ---
Test Reason : Blood Pressure : / mmHG Vent. Rate : 059 BPM Atrial Rate : 059 BPM P-R Int : 164 ms QRS Dur : 102 ms QT Int : 460 ms P-R-T Axes : 057 -14 170 degrees QTc Int : 455 ms Sinus bradycardia Left ventricular hypertrophy with repolarization abnormality Abnormal ECG No previous ECGs available Confirmed by DR. Timothy BAXTER MD ([id number]) on 01/23/2020 7:25:47 PM Referred By: AFFRAM Confirmed By:DR. Timothy BAXTER MD
--- NOTE | 2020-01-23 19:28 | EKG ---
Test Reason : Blood Pressure : / mmHG Vent. Rate : 048 BPM Atrial Rate : 048 BPM P-R Int : 160 ms QRS Dur : 100 ms QT Int : 468 ms P-R-T Axes : -02 -25 140 degrees QTc Int : 418 ms Marked sinus bradycardia T wave abnormality, consider lateral ischemia Abnormal ECG When compared with ECG of 18-JAN-2020 20:32, (Unconfirmed) Nonspecific T wave abnormality, worse in Anterior leads T wave inversion less evident in Lateral leads Confirmed by SAHIL MARIANO, DR. Aguirre ([id number]) on 01/23/2020 7:28:07 PM Referred By: JANETT Confirmed By:DR. Timothy BAXTER MD
[2020-01-23] MEDS: Atorvastatin Calcium 40 MG TAB PO SCH (21:11)
[2020-01-23] MEDS: Insulin Glargine 20 UNITS in Pre-Filled Syringe SC SCH (21:11)
[2020-01-23] MEDS: Acetaminophen/Codeine 30-300mg Tablet PO PRN (21:17)
[2020-01-24] MEDS: Dextrose 5 %-0.45 % NaCl 1,000 ML IV SCH (04:46)
[2020-01-24] MEDS: HumaLOG 300 UNITS/3 ML VIAL SC PRN ×2 (06:23→17:29)
[2020-01-24] MEDS: Aspirin 81 mg Enteric Coated Tablet PO SCH (08:12)
[2020-01-24] MEDS: Clopidogrel Bisulfate 75 MG TAB PO SCH (08:12)
[2020-01-24] MEDS: DULoxetine 30 MG CAP PO SCH (08:13)
[2020-01-24] MEDS: Heparin 5,000 UNITS/ML VIAL SC SCH ×2 (08:13→21:04)
[2020-01-24] MEDS: Furosemide 40 MG TAB PO SCH (08:13)
[2020-01-24] MEDS: metroNIDAZOLE 250 MG TAB PO SCH ×3 (08:13→21:04)
[2020-01-24] MEDS: Lisinopril 2.5 MG TAB PO SCH (08:14)
[2020-01-24] MEDS: Polyethylene Glycol 3350 17 GM Packet PO PRN (08:15)
[2020-01-24] MEDS: traMADol HCl 50 MG TAB PO PRN (11:23)
[2020-01-24 11:37] LABS: #Eosinphils 0.4 thou/uL (0.0-0.7); #Lymphocytes 1.2 thou/uL (1.20-3.40); #Monocytes 1.4 thou/uL (0.11-0.59); #Neutrophils 16.2 thou/uL (1.40-6.50); %Basophils 0.2 % (0.0-1.0); %Eosinophils 1.9 % (0.0-10.0); %Lymphocytes 6.1 % (21.0-51.0); %Monocytes 7.2 % (0.0-10.0); %Neutrophils 84.7 % (42.0-75.0); Hemoglobin 11.9 g/dL (14.0-18.0); Mean Corpuscular HGB CONC 30.6 g/dL (32.0-36.0); Mean Corpuscular Hemoglobin 27.3 pg (27.0-31.0); Mean Platelet Volume 9.6 fL (7.4-10.4); Platelet Count 379 thou/uL (130-400); RBC Distribution Width 14.1 % (11.5-14.5); Red Blood Cell (RBC) Count 4.37 mill/uL (4.70-6.10); White Blood Cell (WBC) Count 19.1 thou/uL (4.8-10.8)
[2020-01-24 11:53] LABS: Anion Gap 17 mmol/L (10-20); BUN (Urea Nitrogen) 19 mg/dL (8.4-25.7); Calc. Creatinine Clearance 53 mL/min (70-130); Calcium 8.2 mg/dL (7.8-10.44); Carbon Dioxide 21 mmol/L (23-31); Chloride 100 mmol/L (98-107); Estimated GFR-MDRD 52; Glucose 172 mg/dL (83-110); Potassium 3.5 mmol/L (3.5-5.1); Sodium 134 mmol/L (136-145)
[2020-01-24] MEDS: Vancomycin 1.5 GRAM/300 ML BAG 1.5 GM in Premix Bag 1 BAG IVPB SCH (15:49)
--- NOTE | 2020-01-24 16:20 | PDOC.HOSPP ---
- Subjective Encounter Date: 01/24/20 Encounter Time: 10:00 Subjective: Patient seen for follow-up regarding diabetic foot infection. He denies chest pain, shortness of breath, fever or chills. - Objective Vital Signs & Weight: Vital Signs (12 hours) Temp Pulse Resp BP Pulse Ox 01/24/20 11:23 97.1 F L 54 L 16 138/66 98 01/24/20 08:00 97 01/24/20 07:37 98.6 F 57 L 16 129/60 98 01/24/20 05:27 95 01/24/20 04:43 98.4 F 53 L 16 133/64 94 L Weight Admit Weight 175 lb 0.752 oz Weight 177 lb I&O: 01/23/20 01/24/20 01/25/20 06:59 06:59 06:59 Intake Total 1725 3300 Output Total 1150 250 Balance 575 3050 Result Diagrams: 01/24/20 11:27 01/24/20 11:27 Additional Labs: Accuchecks 01/24/20 01/24/20 01/23/20 10:41 05:48 20:10 POC Glucose 184 H 164 H 279 H 01/23/20 16:53 POC Glucose 279 H I reviewed patient's labs and MAR EKG Reviewed by me: Yes (Normal sinus rhythm on telemetry) Hospitalist ROS - Review of Systems Cardiovascular: denies: chest pain, palpitations, orthopnea, paroxysmal noc. dyspnea, edema, light headedness Gastrointestinal: denies: nausea, vomiting, abdominal pain, diarrhea, constipation, melena, hematochezia Musculoskeletal: reports: leg pain - Medication Medications: Active Medications Generic Name Dose Route Start Last Admin Trade Name Freq PRN Reason Stop Dose Admin Acetaminophen/Codeine Phosphate 1 tab 01/18/20 15:03 01/23/20 21:17 Acetaminophen/Codeine 30-300mg Tablet PO 1 tab Q4H PRN Administration Moderate Pain (4-6) Aspirin 81 mg 01/20/20 09:00 01/24/20 08:12 Aspirin 81 Mg Enteric Coated Tablet PO 81 mg DAILY SELENA Administration Atorvastatin Calcium 40 mg 01/19/20 21:00 01/23/20 21:11 Atorvastatin Calcium 40 Mg Tab PO 40 mg HS SELENA Administration Benzonatate 100 mg 01/23/20 11:27 01/23/20 21:11 Benzonatate 100 Mg Cap PO 100 mg TIDPRN PRN Administration Cough Clopidogrel Bisulfate 75 mg 01/19/20 09:00 01/24/20 08:12 Clopidogrel Bisulfate 75 Mg Tab PO 75 mg DAILY SELENA Administration Dextrose/Water 25 gm 01/18/20 16:27 01/19/20 05:38 Dextrose 50% Abboject 50 Ml Syringe SLOW IVP 25 gm PRN PRN Administration Hypoglycemia Duloxetine HCl 30 mg 01/19/20 09:00 01/24/20 08:13 Duloxetine 30 Mg Cap PO 30 mg DAILY SELENA Administration Furosemide 40 mg 01/19/20 09:00 01/24/20 08:13 Furosemide 40 Mg Tab PO 40 mg DAILY SELENA Administration Heparin Sodium (Porcine) 5,000 units 01/20/20 21:00 01/24/20 08:13 Heparin 5,000 Units/Ml Vial SC 5,000 units BID SELENA Administration Insulin Glargine 20 units/ 0.2 mls @ 0 mls/hr 01/19/20 21:00 01/23/20 21:11 Miscellaneous Medication SC 0.2 mls HS SELENA Administration Vancomycin HCl 1.5 gm/ Device 300 mls @ 166.67 mls/hr 01/20/20 15:00 01/24/20 15:49 IVPB 300 mls 1500 SELENA Administration Cefepime HCl 2 gm/ Sodium 100 mls @ 200 mls/hr 01/20/20 16:00 01/23/20 15:04 Chloride IVPB 100 mls Q24HR SELENA Administration Insulin Human Lispro 0 units 01/18/20 16:27 01/24/20 06:23 Humalog 300 Units/3 Ml Vial SC 2 unit .MILD SLIDING SCALE PRN Administration Mild Correctional Scale Lisinopril 2.5 mg 01/19/20 09:00 01/24/20 08:14 Lisinopril 2.5 Mg Tab PO 2.5 mg DAILY SELENA Administration Metoprolol Succinate 50 mg 01/21/20 09:00 01/24/20 08:13 Metoprolol Succinate Xl 50 Mg Tab PO 50 mg DAILY SELENA Administration Metronidazole 250 mg 01/20/20 21:00 01/24/20 15:49 Metronidazole 250 Mg Tab PO 250 mg TID SELENA Administration Ondansetron HCl 4 mg 01/19/20 12:35 01/22/20 20:19 Ondansetron Pf 4 Mg/2 Ml Vial IVP 4 mg Q6H PRN Administration Nausea/Vomiting Pantoprazole Sodium 40 mg 01/19/20 09:00 01/24/20 08:13 Pantoprazole 40 Mg Tab PO 40 mg DAILY SELENA Administration Polyethylene Glycol 17 gm 01/22/20 20:18 01/24/20 08:15 Polyethylene Glycol 3350 17 Gm Packet PO 17 gm DAILYPRN PRN Administration Constipation Tramadol HCl 50 mg 01/18/20 15:03 01/24/20 11:23 Tramadol Hcl 50 Mg Tab PO 50 mg Q6H PRN Administration Mild Pain (1-3) - Exam General Appearance: awake alert Eye: anicteric sclera ENT: moist mucosa Neck: supple Heart: RRR Respiratory: CTAB, no ronchi Gastrointestinal: non-tender Skin: no rashes Psychiatric: normal affect Hosp A/P - Plan #1 diabetic foot ulcer: Patient is on cefepime, vancomycin and Flagyl. Will check with ID service regarding discharge medications. #2. Peripheral vascular disease: Appreciate CV surgery input. #3. Hypertension: Hypertension controlled. #4. Diabetes mellitus: Please Lantus to 25 units at bedtime. #5. Chronic kidney disease stage III: Stable. Continue DVT prophylaxis with heparin. Sepsis, resolved, not present on admission. Acute hypoxic respiratory failure, present on admission.
[2020-01-24] MEDS: Cefepime 2 GM in Sodium Chloride 0.9% 100 ML IVPB SCH (18:03)
--- NOTE | 2020-01-24 19:21 | PRG ---
DATE OF SERVICE: 01/24/2020 SUBJECTIVE: Mr. العراقي had amputation of the fifth toe. The operative report was reviewed, and the area of the superficial skin and subcutaneous tissues of the ulcer were debrided, and the underlying muscle and fascia were found to be nonviable, so those were removed and the fifth metatarsophalangeal joint was exposed, so the fifth toe was resected. The fifth metatarsal was divided at midpoint and smoothed out with a bone rasp, and the tissue was approximated left to heal by second intention. The patient does not have any distress. No dyspnea or cough. No abdominal symptoms or diarrhea. OBJECTIVE: VITAL SIGNS: Normal temperature, blood pressure 119/61, heart rate 55, respiratory rate 18, and O2 saturation 94% to 98% on 2 L nasal cannula. GENERAL: Appears in no distress. LUNGS: Symmetric, clear breath sounds. HEART: S1 and S2, regular rate. ABDOMEN: Soft. Not distended. EXTREMITIES: The foot is dressed. The photo from the wound is reviewed and it shows a necrotic base at the more proximal aspect of the elliptical wound area. The more distal is red tissue appearance. LABORATORY DATA: Sodium 134, creatinine 1.34, and glucose 172. White cell count is at 19.1, hemoglobin 11.9, and platelets 379. Microbiology with group B strep isolated from January 21 sample, which appears to be the operative sample. Two sets of blood cultures, no growth thus far. ASSESSMENT AND DISCUSSION: Ischemic cardiomyopathy, peripheral vascular disease with prior revascularizations and now evidence of ulceration, necrosis of the fifth metatarsal skin site, left side. There is evidence of poor vascular supply to the lower extremity. It does not look like he has any other options for intervention to improve the vascular supply at this point in time. After amputation, we will continue antimicrobial therapy with Rocephin and Flagyl and he will need continuation of IV therapy for protracted period of time. Job ID: [id number]
[2020-01-24] MEDS: cefTRIAXone\\ROCEPHIN 2 GM in Sodium Chloride 0.9% 100 ML IVPB SCH (21:04)
[2020-01-24] MEDS: Atorvastatin Calcium 40 MG TAB PO SCH (21:04)
[2020-01-24] MEDS: Insulin Glargine 25 UNITS in Pre-Filled Syringe 1 EACH SC SCH (21:05)
[2020-01-25] MEDS: Acetaminophen/Codeine 30-300mg Tablet PO PRN ×2 (05:41→18:48)
[2020-01-25 06:19] LABS: Anion Gap 13 mmol/L (10-20); BUN (Urea Nitrogen) 20 mg/dL (8.4-25.7); Calc. Creatinine Clearance 53 mL/min (70-130); Calcium 8.3 mg/dL (7.8-10.44); Carbon Dioxide 28 mmol/L (23-31); Chloride 99 mmol/L (98-107); Estimated GFR-MDRD 52; Glucose 74 mg/dL (83-110); Potassium 3.4 mmol/L (3.5-5.1); Sodium 137 mmol/L (136-145)
[2020-01-25 06:28] LABS: Hemoglobin 12.2 g/dL (14.0-18.0); Mean Corpuscular HGB CONC 32.5 g/dL (32.0-36.0); Mean Corpuscular Hemoglobin 28.5 pg (27.0-31.0); Mean Corpuscular Volume 87.8 fL (78.0-98.0); Mean Platelet Volume 9.2 fL (7.4-10.4); Platelet Count 407 thou/uL (130-400); RBC Distribution Width 13.9 % (11.5-14.5); Red Blood Cell (RBC) Count 4.27 mill/uL (4.70-6.10); White Blood Cell (WBC) Count 20.3 thou/uL (4.8-10.8)
[2020-01-25 07:06] LABS: Band 8 % (5-11); Eosinophils 1 % (0-10); Lymphocytes 8 % (21-51); MDiff Complete? YES; Metamyelocyte 1 % (0-0); Monocytes 2 % (0-10); Myelocyte 1 % (0-0); Neutrophil 79 % (42-75); Platelet Morphology Comment Appears Increased; Polychromasia SLIGHT = 2-3 cells (100X) (0-2/hpf); Vacuoles SLIGHT
[2020-01-25] MEDS: Heparin 5,000 UNITS/ML VIAL SC SCH ×2 (08:17→20:56)
[2020-01-25] MEDS: Polyethylene Glycol 3350 17 GM Packet PO PRN (08:17)
[2020-01-25] MEDS: Lisinopril 2.5 MG TAB PO SCH (08:18)
[2020-01-25] MEDS: metroNIDAZOLE 250 MG TAB PO SCH ×3 (08:18→20:56)
[2020-01-25] MEDS: Clopidogrel Bisulfate 75 MG TAB PO SCH (08:18)
[2020-01-25] MEDS: DULoxetine 30 MG CAP PO SCH (08:18)
[2020-01-25] MEDS: Furosemide 40 MG TAB PO SCH (08:18)
[2020-01-25] MEDS: Aspirin 81 mg Enteric Coated Tablet PO SCH (08:21)
[2020-01-25] MEDS: traMADol HCl 50 MG TAB PO PRN ×2 (08:28→23:18)
--- NOTE | 2020-01-25 14:26 | SPC ---
Left upper extremity PICC placement sonographic guided HISTORY: Osteomyelitis. FINDINGS: After explaining the procedure and answering all questions, the left upper extremity was pr epped and draped in usual sterile fashion. Sterile technique, buffered local anesthesia, sonographic guidance, and a 22-gauge needle were used t o carefully access the left cephalic vein. Standard technique was used to place the tip of a 5 Divehi single lumen PICC so that the tip lies at the level of the superior vena cava. Catheter was flushed and secured externally. Patient tolerated the procedure well and was returned in unchanged condition. Fluoroscopy time 0 seconds. IMPRESSION : Left upper extremity PICC is ready for use.
[2020-01-25] MEDS: Benzonatate 100 MG CAP PO PRN (15:29)
[2020-01-25] MEDS ORDERED: Bisacodyl 5 MG TAB PO PRN (17:41)
--- NOTE | 2020-01-25 17:44 | PDOC.HOSPP ---
- Subjective Encounter Date: 01/25/20 Encounter Time: 11:30 Subjective: Patient seen for follow-up regarding diabetic foot infection. Complains of cough, complains of constipation. - Objective Vital Signs & Weight: Vital Signs (12 hours) Temp Pulse Resp BP Pulse Ox 01/25/20 16:00 98 F 54 L 22 H 110/74 95 01/25/20 11:00 97.9 F 52 L 20 129/65 94 L 01/25/20 08:18 57 L 01/25/20 08:00 97.9 F 57 L 16 106/51 L 92 L Weight Admit Weight 175 lb 0.752 oz Weight 174 lb 11.2 oz I&O: 01/24/20 01/25/20 01/26/20 06:59 06:59 06:59 Intake Total 3300 1140 900 Output Total 250 600 Balance 3050 1140 300 Result Diagrams: 01/25/20 05:41 01/25/20 05:41 Additional Labs: Accuchecks 01/25/20 01/25/20 01/25/20 16:12 10:55 05:16 POC Glucose 195 H 129 H 87 01/24/20 20:31 POC Glucose 156 H Labs and MAR reviewed by tn Hospitalist ROS - Review of Systems Respiratory: reports: cough, dry. denies: shortness of breath, hemoptysis, SOB with excertion, pleuritic pain, sputum, wheezing Gastrointestinal: reports: constipation. denies: nausea, vomiting, abdominal pain, diarrhea, melena, hematochezia - Medication Medications: Active Medications Generic Name Dose Route Start Last Admin Trade Name Freq PRN Reason Stop Dose Admin Acetaminophen/Codeine Phosphate 1 tab 01/18/20 15:03 01/25/20 05:41 Acetaminophen/Codeine 30-300mg Tablet PO 1 tab Q4H PRN Administration Moderate Pain (4-6) Aspirin 81 mg 01/20/20 09:00 01/25/20 08:21 Aspirin 81 Mg Enteric Coated Tablet PO 81 mg DAILY SELENA Administration Atorvastatin Calcium 40 mg 01/19/20 21:00 01/24/20 21:04 Atorvastatin Calcium 40 Mg Tab PO 40 mg HS SELENA Administration Benzonatate 100 mg 01/23/20 11:27 01/25/20 15:29 Benzonatate 100 Mg Cap PO 100 mg TIDPRN PRN Administration Cough Clopidogrel Bisulfate 75 mg 01/19/20 09:00 01/25/20 08:18 Clopidogrel Bisulfate 75 Mg Tab PO 75 mg DAILY SELENA Administration Dextrose/Water 25 gm 01/18/20 16:27 01/19/20 05:38 Dextrose 50% Abboject 50 Ml Syringe SLOW IVP 25 gm PRN PRN Administration Hypoglycemia Duloxetine HCl 30 mg 01/19/20 09:00 01/25/20 08:18 Duloxetine 30 Mg Cap PO 30 mg DAILY SELENA Administration Furosemide 40 mg 01/19/20 09:00 01/25/20 08:18 Furosemide 40 Mg Tab PO 40 mg DAILY SELENA Administration Heparin Sodium (Porcine) 5,000 units 01/20/20 21:00 01/25/20 08:17 Heparin 5,000 Units/Ml Vial SC 5,000 units BID SELENA Administration Insulin Glargine 25 units/ 0.25 mls @ 0 mls/hr 01/24/20 21:00 01/24/20 21:05 Miscellaneous Medication SC 0.25 mls HS SELENA Administration Ceftriaxone Sodium 2 gm/ 100 mls @ 200 mls/hr 01/24/20 20:00 01/24/20 21:04 Sodium Chloride IVPB 100 mls Q24HR SELENA Administration Insulin Human Lispro 0 units 01/18/20 16:27 01/24/20 17:29 Humalog 300 Units/3 Ml Vial SC 2 unit .MILD SLIDING SCALE PRN Administration Mild Correctional Scale Lisinopril 2.5 mg 01/19/20 09:00 01/25/20 08:18 Lisinopril 2.5 Mg Tab PO 2.5 mg DAILY SELENA Administration Metoprolol Succinate 50 mg 01/21/20 09:00 01/25/20 08:18 Metoprolol Succinate Xl 50 Mg Tab PO 50 mg DAILY SELENA Administration Metronidazole 250 mg 01/20/20 21:00 01/25/20 15:29 Metronidazole 250 Mg Tab PO 250 mg TID SELENA Administration Ondansetron HCl 4 mg 01/19/20 12:35 01/22/20 20:19 Ondansetron Pf 4 Mg/2 Ml Vial IVP 4 mg Q6H PRN Administration Nausea/Vomiting Pantoprazole Sodium 40 mg 01/19/20 09:00 01/25/20 08:19 Pantoprazole 40 Mg Tab PO 40 mg DAILY SELENA Administration Polyethylene Glycol 17 gm 01/22/20 20:18 01/25/20 08:17 Polyethylene Glycol 3350 17 Gm Packet PO 17 gm DAILYPRN PRN Administration Constipation Sodium Chloride 10 ml 01/24/20 21:00 01/25/20 08:21 Flush - Normal Saline 10 Ml Syringe IVF 10 ml Q12HR SELENA Administration Tramadol HCl 50 mg 01/18/20 15:03 01/25/20 08:28 Tramadol Hcl 50 Mg Tab PO 50 mg Q6H PRN Administration Mild Pain (1-3) - Exam General Appearance: awake alert Eye: anicteric sclera ENT: moist mucosa Neck: supple Heart: RRR Respiratory: CTAB Gastrointestinal: soft Extremities: no edema Skin - other findings: Wound as documented Psychiatric: normal affect, normal behavior Hosp A/P - Plan Patient is a pleasant 74-year-old gentleman who was admitted to the hospital on January 18, 2020 for left foot diabetic ulcer. Was seen by general surgery service, who recommended cardiovascular surgery input. He was seen by cardiovascular surgery service. Aorta with runoff CT angiogram did not show any revascularizable targets. He was also seen by cardiology service for surgical clearance. On 2019, he underwent debridement of skin, subcutaneous tissue, muscle and fascia of the left foot as well as the amputation of left fifth toe. He continued to improve clinically on intravenous antibiotics and was transferred to the surgical floor. He was also seen by infectious disease service, and they recommend continuing ceftriaxone 2 g intravenously every 24 hours as well as Flagyl 500 mg 3 times a day till March 01, 2020. Case management is currently working on arranging for the same. He had a PICC line placed on January 25, 2020. #1 diabetic foot ulcer: Continue ceftriaxone and metronidazole. #2. Peripheral vascular disease: No revascularizable targets in the left foot. #3. Hypertension: Hypertension controlled. #4. Diabetes mellitus: Lantus changed to 25 units at bedtime, blood sugars are reasonably controlled.. #5. Chronic kidney disease stage III: Stable. Continue DVT prophylaxis with heparin. Sepsis, resolved, not present on admission. Acute hypoxic respiratory failure, present on admission.
[2020-01-25] MEDS: HumaLOG 300 UNITS/3 ML VIAL SC PRN ×2 (18:50→20:57)
[2020-01-25] MEDS: Atorvastatin Calcium 40 MG TAB PO SCH (20:56)
[2020-01-25] MEDS: cefTRIAXone\\ROCEPHIN 2 GM in Sodium Chloride 0.9% 100 ML IVPB SCH (20:56)
[2020-01-25] MEDS: Insulin Glargine 25 UNITS in Pre-Filled Syringe 1 EACH SC SCH (20:57)
[2020-01-26] MEDS: Acetaminophen/Codeine 30-300mg Tablet PO PRN ×4 (00:40→15:46)
[2020-01-26] MEDS: traMADol HCl 50 MG TAB PO PRN ×2 (04:21→17:09)
[2020-01-26 05:50] LABS: #Eosinphils 0.6 thou/uL (0.0-0.7); #Lymphocytes 2.3 thou/uL (1.20-3.40); #Monocytes 1.4 thou/uL (0.11-0.59); #Neutrophils 13.8 thou/uL (1.40-6.50); %Basophils 0.2 % (0.0-1.0); %Eosinophils 3.1 % (0.0-10.0); %Lymphocytes 12.6 % (21.0-51.0); %Monocytes 7.8 % (0.0-10.0); %Neutrophils 76.3 % (42.0-75.0); Hemoglobin 11.1 g/dL (14.0-18.0); Mean Corpuscular HGB CONC 31.9 g/dL (32.0-36.0); Mean Platelet Volume 8.7 fL (7.4-10.4); Platelet Count 417 thou/uL (130-400); Red Blood Cell (RBC) Count 3.97 mill/uL (4.70-6.10); White Blood Cell (WBC) Count 18.1 thou/uL (4.8-10.8)
[2020-01-26 06:16] LABS: Anion Gap 12 mmol/L (10-20); BUN (Urea Nitrogen) 21 mg/dL (8.4-25.7); Calc. Creatinine Clearance 57 mL/min (70-130); Calcium 8.2 mg/dL (7.8-10.44); Carbon Dioxide 30 mmol/L (23-31); Chloride 99 mmol/L (98-107); Estimated GFR-MDRD 58; Glucose 80 mg/dL (83-110); Potassium 3.2 mmol/L (3.5-5.1); Sodium 138 mmol/L (136-145)
[2020-01-26] MEDS ORDERED: Potassium Chloride 20 MEQ TAB PO SCH (08:30)
[2020-01-26 08:42] LABS: Magnesium 1.9 mg/dL (1.6-2.6); Phosphorus 2.4 mg/dL (2.3-4.7)
[2020-01-26] MEDS: Lisinopril 2.5 MG TAB PO SCH (09:31)
[2020-01-26] MEDS: Aspirin 81 mg Enteric Coated Tablet PO SCH (09:31)
[2020-01-26] MEDS: Clopidogrel Bisulfate 75 MG TAB PO SCH (09:31)
[2020-01-26] MEDS: DULoxetine 30 MG CAP PO SCH (09:31)
[2020-01-26] MEDS: Furosemide 40 MG TAB PO SCH (09:31)
[2020-01-26] MEDS: metroNIDAZOLE 250 MG TAB PO SCH ×3 (09:31→21:00)
[2020-01-26] MEDS: Heparin 5,000 UNITS/ML VIAL SC SCH ×2 (09:35→21:01)
[2020-01-26] MEDS: HumaLOG 300 UNITS/3 ML VIAL SC PRN ×2 (12:40→21:07)
[2020-01-26] MEDS: Potassium Chloride 20 MEQ TAB PO SCH (17:09)
--- NOTE | 2020-01-26 18:11 | PDOC.HOSPP ---
- Subjective Encounter Date: 01/26/20 Encounter Time: 10:00 Subjective: Patient seen and examined for foot infection. Denies any fever or chills. Mild to moderate discomfort over the left foot - Objective Vital Signs & Weight: Vital Signs (12 hours) Temp Pulse Resp BP BP BP Pulse Ox 01/26/20 15:50 98.0 F 61 16 108/71 93 L 01/26/20 14:57 92/61 01/26/20 11:50 98.0 F 60 18 96/56 L 93 L 01/26/20 09:31 57 L 110/68 01/26/20 08:20 93 L 01/26/20 07:05 97.8 F 57 L 16 100/61 93 L Weight Admit Weight 175 lb 0.752 oz Weight 173 lb 4 oz I&O: 01/25/20 01/26/20 01/27/20 06:59 06:59 06:59 Intake Total 1140 1731 357 Output Total 1225 Balance 1140 506 357 Result Diagrams: 01/26/20 05:35 01/26/20 05:35 Additional Labs: Accuchecks 01/26/20 01/26/20 01/26/20 15:47 11:53 05:57 POC Glucose 132 H 157 H 101 H Abnormal Lab Results - Last 48 hrs 01/25/20 05:41: Potassium 3.4 L, Creatinine 1.34 H 01/25/20 05:41: WBC 20.3 H, RBC 4.27 L, Hgb 12.2 L, Hct 37.5 L, Plt Count 407 H, Neutrophils % (Manual) 79 H, Lymphocytes % (Manual) 8 L, Metamyelocytes % (Man) 1 H, Myelocytes % 1 H, Plt Morphology Comment Appears Increased H 01/26/20 05:35: Potassium 3.2 L 01/26/20 05:35: WBC 18.1 H, RBC 3.97 L, Hgb 11.1 L, Hct 34.9 L, MCHC 31.9 L, Plt Count 417 H, Neutrophils % 76.3 H, Lymphocytes % 12.6 L, Neutrophils # 13.8 H, Monocytes # 1.4 H Microbiology - Entire Visit 01/22/20 17:00 Foot Bacterial Culture - Preliminary Streptococcus agalactiae Gp. B Yeast species 01/22/20 17:00 Foot Anaerobic Culture - Preliminary 01/18/20 12:01 Venous blood - Left Arm Blood Culture - Final NO GROWTH IN 5 DAYS 01/18/20 11:52 Venous blood - Right Arm Blood Culture - Final NO GROWTH IN 5 DAYS Radiology Reviewed by me: Yes (Chest x-rayno infiltrate) Hospitalist ROS - Review of Systems Cardiovascular: denies: chest pain, palpitations, orthopnea, paroxysmal noc. dyspnea, edema, light headedness, other Gastrointestinal: denies: nausea, vomiting, abdominal pain, diarrhea, constipation, melena, hematochezia, other - Medication Medications: Active Medications Generic Name Dose Route Start Last Admin Trade Name Freq PRN Reason Stop Dose Admin Acetaminophen/Codeine Phosphate 1 tab 01/18/20 15:03 01/26/20 15:46 Acetaminophen/Codeine 30-300mg Tablet PO 1 tab Q4H PRN Administration Moderate Pain (4-6) Aspirin 81 mg 01/20/20 09:00 01/26/20 09:31 Aspirin 81 Mg Enteric Coated Tablet PO 81 mg DAILY SELENA Administration Atorvastatin Calcium 40 mg 01/19/20 21:00 01/25/20 20:56 Atorvastatin Calcium 40 Mg Tab PO 40 mg HS SELENA Administration Benzonatate 100 mg 01/23/20 11:27 01/25/20 15:29 Benzonatate 100 Mg Cap PO 100 mg TIDPRN PRN Administration Cough Clopidogrel Bisulfate 75 mg 01/19/20 09:00 01/26/20 09:31 Clopidogrel Bisulfate 75 Mg Tab PO 75 mg DAILY SELENA Administration Dextrose/Water 25 gm 01/18/20 16:27 01/19/20 05:38 Dextrose 50% Abboject 50 Ml Syringe SLOW IVP 25 gm PRN PRN Administration Hypoglycemia Duloxetine HCl 30 mg 01/19/20 09:00 01/26/20 09:31 Duloxetine 30 Mg Cap PO 30 mg DAILY SELENA Administration Furosemide 40 mg 01/19/20 09:00 01/26/20 09:31 Furosemide 40 Mg Tab PO 40 mg DAILY SELENA Administration Heparin Sodium (Porcine) 5,000 units 01/20/20 21:00 01/26/20 09:35 Heparin 5,000 Units/Ml Vial SC 5,000 units BID SELENA Administration Insulin Glargine 25 units/ 0.25 mls @ 0 mls/hr 01/24/20 21:00 01/25/20 20:57 Miscellaneous Medication SC 0.25 mls HS SELENA Administration Ceftriaxone Sodium 2 gm/ 100 mls @ 200 mls/hr 01/24/20 20:00 01/25/20 20:56 Sodium Chloride IVPB 100 mls Q24HR SELENA Administration Insulin Human Lispro 0 units 01/18/20 16:27 01/26/20 12:40 Humalog 300 Units/3 Ml Vial SC 2 unit .MILD SLIDING SCALE PRN Administration Mild Correctional Scale Lisinopril 2.5 mg 01/19/20 09:00 01/26/20 09:31 Lisinopril 2.5 Mg Tab PO 2.5 mg DAILY SELENA Administration Metoprolol Succinate 50 mg 01/21/20 09:00 01/26/20 09:36 Metoprolol Succinate Xl 50 Mg Tab PO Not Given DAILY SELENA Metronidazole 250 mg 01/20/20 21:00 01/26/20 15:42 Metronidazole 250 Mg Tab PO 250 mg TID SELENA Administration Ondansetron HCl 4 mg 01/19/20 12:35 01/22/20 20:19 Ondansetron Pf 4 Mg/2 Ml Vial IVP 4 mg Q6H PRN Administration Nausea/Vomiting Pantoprazole Sodium 40 mg 01/19/20 09:00 01/26/20 09:31 Pantoprazole 40 Mg Tab PO 40 mg DAILY SELENA Administration Polyethylene Glycol 17 gm 01/22/20 20:18 01/25/20 08:17 Polyethylene Glycol 3350 17 Gm Packet PO 17 gm DAILYPRN PRN Administration Constipation Potassium Chloride 20 meq 01/26/20 17:00 01/26/20 17:09 Potassium Chloride 20 Meq Tab PO 20 meq BID-WM SELENA Administration Sodium Chloride 10 ml 01/24/20 21:00 01/26/20 09:31 Flush - Normal Saline 10 Ml Syringe IVF 10 ml Q12HR SELENA Administration Tramadol HCl 50 mg 01/18/20 15:03 01/26/20 17:09 Tramadol Hcl 50 Mg Tab PO 50 mg Q6H PRN Administration Mild Pain (1-3) - Exam General Appearance: ill appearing Heart: RRR, no gallops Respiratory: no wheezes, no ronchi Gastrointestinal: non-tender, non-distended, no rigidity Extremities: no cyanosis Extremities - other findings: Left foot dressing Neurological: no new deficit Psychiatric: normal affect, A&O x 3 Hosp A/P - Plan Sepsis due to diabetic left foot infection with gangrene s/p left fifth toe amputationPOA Diabetes mellitus type 2uncontrolled with hemoglobin A1c greater than 14 Hypokalemia/hyponatremia JORDYN on CKD stage IIIPOA Ischemic cardiomyopathy/chronic systolic and diastolic heart failure Severe peripheral vascular disease Chronic anemia suspected due to nutritional deficiency peripheral vascular disease Coronary artery disease s/p CABG Plan: Continue ceftriaxone with Flagyl per infectious disease until March 01. [facility] facility evaluation per family's request. Continue current dose of Lantus along with sliding scale. Recheck labs in a.m. replace potassium. Continue heparin for DVT prophylaxis. Continue aspirin, Plavix with statins. Add probiotics. Continue other medications as above.
[2020-01-26] MEDS: cefTRIAXone\\ROCEPHIN 2 GM in Sodium Chloride 0.9% 100 ML IVPB SCH (20:58)
[2020-01-26] MEDS: Atorvastatin Calcium 40 MG TAB PO SCH (21:01)
[2020-01-26] MEDS: Insulin Glargine 25 UNITS in Pre-Filled Syringe 1 EACH SC SCH (21:58)
[2020-01-27] MEDS: Acetaminophen/Codeine 30-300mg Tablet PO PRN (02:56)
[2020-01-27] MEDS: traMADol HCl 50 MG TAB PO PRN ×3 (04:09→20:45)
[2020-01-27 05:29] LABS: Phosphorus 2.4 mg/dL (2.3-4.7)
[2020-01-27 05:40] LABS: Band 5 % (5-11); Eosinophils 2 % (0-10); Hemoglobin 10.3 g/dL (14.0-18.0); Lymphocytes 10 % (21-51); MDiff Complete? YES; Mean Corpuscular HGB CONC 31.8 g/dL (32.0-36.0); Mean Corpuscular Hemoglobin 27.9 pg (27.0-31.0); Mean Corpuscular Volume 87.7 fL (78.0-98.0); Mean Platelet Volume 8.4 fL (7.4-10.4); Monocytes 11 % (0-10); Neutrophil 72 % (42-75); Platelet Count 395 thou/uL (130-400); RBC Distribution Width 13.9 % (11.5-14.5); Red Blood Cell (RBC) Count 3.69 mill/uL (4.70-6.10); White Blood Cell (WBC) Count 21.5 thou/uL (4.8-10.8)
[2020-01-27 07:50] LABS: Anion Gap 13 mmol/L (10-20); BUN (Urea Nitrogen) 18 mg/dL (8.4-25.7); Calc. Creatinine Clearance 57 mL/min (70-130); Calcium 7.9 mg/dL (7.8-10.44); Carbon Dioxide 30 mmol/L (23-31); Chloride 97 mmol/L (98-107); Estimated GFR-MDRD 59; Glucose 109 mg/dL (83-110); Magnesium 1.9 mg/dL (1.6-2.6); Potassium 3.7 mmol/L (3.5-5.1); Sodium 136 mmol/L (136-145)
[2020-01-27] MEDS: Potassium Chloride 20 MEQ TAB PO SCH ×2 (08:23→16:45)
[2020-01-27] MEDS: Clopidogrel Bisulfate 75 MG TAB PO SCH (08:23)
[2020-01-27] MEDS: Aspirin 81 mg Enteric Coated Tablet PO SCH (08:23)
[2020-01-27] MEDS: DULoxetine 30 MG CAP PO SCH (08:23)
[2020-01-27] MEDS: Lisinopril 2.5 MG TAB PO SCH (08:23)
[2020-01-27] MEDS: Heparin 5,000 UNITS/ML VIAL SC SCH ×2 (08:24→20:45)
[2020-01-27] MEDS: Saccharomyces boulardii 250 MG CAP PO SCH (08:24)
[2020-01-27] MEDS: Furosemide 40 MG TAB PO SCH (08:24)
[2020-01-27] MEDS: metroNIDAZOLE 250 MG TAB PO SCH ×3 (08:24→20:45)
[2020-01-27] MEDS: HumaLOG 300 UNITS/3 ML VIAL SC PRN ×2 (11:23→16:45)
--- NOTE | 2020-01-27 18:11 | PDOC.HOSPP ---
- Subjective Encounter Date: 01/27/20 Encounter Time: 11:00 Subjective: Patient seen and examined for diabetic foot infection. Denies any fever, chills or abdominal pain. Pain controlled on current regimen. - Objective Vital Signs & Weight: Vital Signs (12 hours) Temp Pulse Resp BP Pulse Ox 01/27/20 15:00 97.8 F 60 16 92 L 01/27/20 10:39 98.1 F 62 16 109/70 93 L 01/27/20 08:25 96 01/27/20 08:23 74 01/27/20 08:00 97.9 F 74 16 125/79 96 Weight Admit Weight 175 lb 0.752 oz Weight 168 lb 9.6 oz I&O: 01/26/20 01/27/20 01/28/20 06:59 06:59 06:59 Intake Total 1731 1627 Output Total 1225 625 Balance 506 1002 Result Diagrams: 01/27/20 04:56 01/27/20 04:56 Additional Labs: Accuchecks 01/27/20 01/27/20 01/26/20 10:42 05:33 21:07 POC Glucose 226 H 115 H 241 H Abnormal Lab Results - Last 48 hrs 01/26/20 05:35: Potassium 3.2 L 01/26/20 05:35: WBC 18.1 H, RBC 3.97 L, Hgb 11.1 L, Hct 34.9 L, MCHC 31.9 L, Plt Count 417 H, Neutrophils % 76.3 H, Lymphocytes % 12.6 L, Neutrophils # 13.8 H, Monocytes # 1.4 H 01/27/20 04:56: Chloride 97 L 01/27/20 04:56: WBC 21.5 H, RBC 3.69 L, Hgb 10.3 L, Hct 32.4 L, MCHC 31.8 L, Lymphocytes % (Manual) 10 L, Monocytes % (Manual) 11 H Microbiology - Entire Visit 01/22/20 17:00 Foot Bacterial Culture - Preliminary Streptococcus agalactiae Gp. B Yeast species 01/22/20 17:00 Foot Anaerobic Culture - Preliminary 01/18/20 12:01 Venous blood - Left Arm Blood Culture - Final NO GROWTH IN 5 DAYS 01/18/20 11:52 Venous blood - Right Arm Blood Culture - Final NO GROWTH IN 5 DAYS Hospitalist ROS - Review of Systems Respiratory: denies: cough, dry, shortness of breath, hemoptysis, SOB with excertion, pleuritic pain, sputum, wheezing, other Cardiovascular: denies: chest pain, palpitations, orthopnea, paroxysmal noc. dyspnea, edema, light headedness, other - Medication Medications: Active Medications Generic Name Dose Route Start Last Admin Trade Name Freq PRN Reason Stop Dose Admin Acetaminophen/Codeine Phosphate 1 tab 01/18/20 15:03 01/27/20 02:56 Acetaminophen/Codeine 30-300mg Tablet PO 1 tab Q4H PRN Administration Moderate Pain (4-6) Aspirin 81 mg 01/20/20 09:00 01/27/20 08:23 Aspirin 81 Mg Enteric Coated Tablet PO 81 mg DAILY SELENA Administration Atorvastatin Calcium 40 mg 01/19/20 21:00 01/26/20 21:01 Atorvastatin Calcium 40 Mg Tab PO 40 mg HS SELENA Administration Benzonatate 100 mg 01/23/20 11:27 01/25/20 15:29 Benzonatate 100 Mg Cap PO 100 mg TIDPRN PRN Administration Cough Clopidogrel Bisulfate 75 mg 01/19/20 09:00 01/27/20 08:23 Clopidogrel Bisulfate 75 Mg Tab PO 75 mg DAILY SELENA Administration Dextrose/Water 25 gm 01/18/20 16:27 01/19/20 05:38 Dextrose 50% Abboject 50 Ml Syringe SLOW IVP 25 gm PRN PRN Administration Hypoglycemia Duloxetine HCl 30 mg 01/19/20 09:00 01/27/20 08:23 Duloxetine 30 Mg Cap PO 30 mg DAILY SELENA Administration Furosemide 40 mg 01/19/20 09:00 01/27/20 08:24 Furosemide 40 Mg Tab PO 40 mg DAILY SELENA Administration Heparin Sodium (Porcine) 5,000 units 01/20/20 21:00 01/27/20 08:24 Heparin 5,000 Units/Ml Vial SC 5,000 units BID SELENA Administration Insulin Glargine 25 units/ 0.25 mls @ 0 mls/hr 01/24/20 21:00 01/26/20 21:58 Miscellaneous Medication SC 0.25 mls HS SELENA Administration Ceftriaxone Sodium 2 gm/ 100 mls @ 200 mls/hr 01/24/20 20:00 01/26/20 20:58 Sodium Chloride IVPB 100 mls Q24HR SELENA Administration Insulin Human Lispro 0 units 01/18/20 16:27 01/27/20 16:45 Humalog 300 Units/3 Ml Vial SC 3 unit .MILD SLIDING SCALE PRN Administration Mild Correctional Scale Lisinopril 2.5 mg 01/19/20 09:00 01/27/20 08:23 Lisinopril 2.5 Mg Tab PO 2.5 mg DAILY SELENA Administration Metoprolol Succinate 50 mg 01/21/20 09:00 01/27/20 08:24 Metoprolol Succinate Xl 50 Mg Tab PO 50 mg DAILY SELENA Administration Metronidazole 250 mg 01/20/20 21:00 01/27/20 16:45 Metronidazole 250 Mg Tab PO 250 mg TID SELENA Administration Ondansetron HCl 4 mg 01/19/20 12:35 01/22/20 20:19 Ondansetron Pf 4 Mg/2 Ml Vial IVP 4 mg Q6H PRN Administration Nausea/Vomiting Pantoprazole Sodium 40 mg 01/19/20 09:00 01/27/20 08:24 Pantoprazole 40 Mg Tab PO 40 mg DAILY SELENA Administration Polyethylene Glycol 17 gm 01/22/20 20:18 01/25/20 08:17 Polyethylene Glycol 3350 17 Gm Packet PO 17 gm DAILYPRN PRN Administration Constipation Potassium Chloride 20 meq 01/26/20 17:00 01/27/20 16:45 Potassium Chloride 20 Meq Tab PO 20 meq BID-WM SELENA Administration Saccharomyces Boulardii 250 mg 01/27/20 09:00 01/27/20 08:24 Saccharomyces Boulardii 250 Mg Cap PO 250 mg DAILY SELENA Administration Sodium Chloride 10 ml 01/24/20 21:00 01/27/20 08:24 Flush - Normal Saline 10 Ml Syringe IVF 10 ml Q12HR SELENA Administration Tramadol HCl 50 mg 01/18/20 15:03 01/27/20 09:35 Tramadol Hcl 50 Mg Tab PO 50 mg Q6H PRN Administration Mild Pain (1-3) - Exam General Appearance: ill appearing Heart: RRR, no gallops Respiratory: no wheezes, no ronchi Gastrointestinal: soft, non-tender, normal bowel sounds Extremities: no cyanosis Extremities - other findings: Foot dressing Hosp A/P - Plan Sepsis due to diabetic left foot infection with gangrene s/p left fifth toe amputation Diabetes mellitus type 2uncontrolled with hemoglobin A1c >14 Hypokalemia/hyponatremia JORDYN on CKD stage III Ischemic cardiomyopathy/chronic systolic and diastolic heart failure Severe peripheral vascular disease Chronic anemia suspected due to nutritional deficiency peripheral vascular disease Coronary artery disease s/p CABG Other issues per previous notes Plan: Continue IV antibioticsceftriaxone with Flagyl. Await shelter facility placement. Patient does not have significant left shift although has persistent leukocytosis. Will monitor labs every 2 to 3 days. Continue current dose of Lantus with moderate sliding scale. Continue diabetic diet continue lisinopril, Toprol-XL and other medications as above. Continue heparin for DVT prophylaxis.
[2020-01-27] MEDS: cefTRIAXone\\ROCEPHIN 2 GM in Sodium Chloride 0.9% 100 ML IVPB SCH (20:44)
[2020-01-27] MEDS: Atorvastatin Calcium 40 MG TAB PO SCH (20:45)
[2020-01-27] MEDS: Benzonatate 100 MG CAP PO PRN (20:45)
[2020-01-27] MEDS: Insulin Glargine 25 UNITS in Pre-Filled Syringe 1 EACH SC SCH (20:46)
[2020-01-28] MEDS: Acetaminophen/Codeine 30-300mg Tablet PO PRN (00:51)
[2020-01-28] MEDS: traMADol HCl 50 MG TAB PO PRN ×2 (04:02→14:48)
[2020-01-28] MEDS: Aspirin 81 mg Enteric Coated Tablet PO SCH (09:20)
[2020-01-28] MEDS: Saccharomyces boulardii 250 MG CAP PO SCH (09:20)
[2020-01-28] MEDS: Furosemide 40 MG TAB PO SCH (09:20)
[2020-01-28] MEDS: Potassium Chloride 20 MEQ TAB PO SCH ×2 (09:20→17:12)
[2020-01-28] MEDS: Lisinopril 2.5 MG TAB PO SCH (09:20)
[2020-01-28] MEDS: Heparin 5,000 UNITS/ML VIAL SC SCH ×2 (09:21→20:13)
[2020-01-28] MEDS: Clopidogrel Bisulfate 75 MG TAB PO SCH (09:21)
[2020-01-28] MEDS: metroNIDAZOLE 250 MG TAB PO SCH ×3 (09:21→20:13)
[2020-01-28] MEDS: DULoxetine 30 MG CAP PO SCH (09:21)
[2020-01-28] MEDS: Benzonatate 100 MG CAP PO PRN (09:57)
--- NOTE | 2020-01-28 10:36 | PDOC.BPN ---
- Brief Progress Note Encounter Date: 01/28/20 Chart review conducted. Wound care photo shows formation of black eschar over open wound. This seems indicative that this wound will fail to heal over time. Discussed with hospitalist service. Wound care consulted, and will request transcutaneous oxygen saturation measurement to evaluate the need for future amputation. This is unable to be performed as an inpatient, hospitalist service will set up for outpatient study so that the patient can be adequately counseled at his postoperative follow-up. It was agreed that the patient will require outpatient wound therapy after discharge.
[2020-01-28] MEDS: HumaLOG 300 UNITS/3 ML VIAL SC PRN (17:50)
[2020-01-28] MEDS: Atorvastatin Calcium 40 MG TAB PO SCH (20:13)
[2020-01-28] MEDS: cefTRIAXone\\ROCEPHIN 2 GM in Sodium Chloride 0.9% 100 ML IVPB SCH (20:14)
[2020-01-28] MEDS: Insulin Glargine 25 UNITS in Pre-Filled Syringe 1 EACH SC SCH (20:15)
--- NOTE | 2020-01-28 21:45 | PDOC.HOSPP ---
- Subjective Encounter Date: 01/28/20 Encounter Time: 10:30 Subjective: Patient seen and examined for diabetic foot infection. Some discomfort over the surgical site. No fever, nausea, vomiting or abdominal pain. - Objective Vital Signs & Weight: Vital Signs (12 hours) Temp Pulse Resp BP BP Pulse Ox 01/28/20 19:08 97.9 F 61 18 129/79 98 01/28/20 15:18 98.1 F 63 18 141/88 H 94 L 01/28/20 10:30 98.2 F 64 18 127/58 L 94 L Weight Admit Weight 175 lb 0.752 oz Weight 173 lb I&O: 01/27/20 01/28/20 01/29/20 06:59 06:59 06:59 Intake Total 1627 610 610 Output Total 625 Balance 1002 610 610 Result Diagrams: 01/27/20 04:56 01/27/20 04:56 Additional Labs: Accuchecks 01/28/20 01/28/20 01/28/20 20:12 15:20 10:35 POC Glucose 231 H 213 H 155 H 01/28/20 01/27/20 01/26/20 05:48 15:59 05:20 POC Glucose 115 H 250 H 55 L* 01/25/20 20:51 POC Glucose 213 H Hospitalist ROS - Review of Systems Respiratory: denies: cough, dry, shortness of breath, hemoptysis, SOB with excertion, pleuritic pain, sputum, wheezing, other Cardiovascular: denies: chest pain, palpitations, orthopnea, paroxysmal noc. dyspnea, edema, light headedness, other - Medication Medications: Active Medications Generic Name Dose Route Start Last Admin Trade Name Freq PRN Reason Stop Dose Admin Aspirin 81 mg 01/20/20 09:00 01/28/20 09:20 Aspirin 81 Mg Enteric Coated Tablet PO 81 mg DAILY SELENA Administration Atorvastatin Calcium 40 mg 01/19/20 21:00 01/28/20 20:13 Atorvastatin Calcium 40 Mg Tab PO 40 mg HS SELENA Administration Benzonatate 100 mg 01/23/20 11:27 01/28/20 09:57 Benzonatate 100 Mg Cap PO 100 mg TIDPRN PRN Administration Cough Clopidogrel Bisulfate 75 mg 01/19/20 09:00 01/28/20 09:21 Clopidogrel Bisulfate 75 Mg Tab PO 75 mg DAILY SELENA Administration Dextrose/Water 25 gm 01/18/20 16:27 01/19/20 05:38 Dextrose 50% Abboject 50 Ml Syringe SLOW IVP 25 gm PRN PRN Administration Hypoglycemia Duloxetine HCl 30 mg 01/19/20 09:00 01/28/20 09:21 Duloxetine 30 Mg Cap PO 30 mg DAILY SELENA Administration Furosemide 40 mg 01/19/20 09:00 01/28/20 09:20 Furosemide 40 Mg Tab PO 40 mg DAILY SELENA Administration Heparin Sodium (Porcine) 5,000 units 01/20/20 21:00 01/28/20 20:13 Heparin 5,000 Units/Ml Vial SC 5,000 units BID SELENA Administration Insulin Glargine 25 units/ 0.25 mls @ 0 mls/hr 01/24/20 21:00 01/28/20 20:15 Miscellaneous Medication SC 0.25 mls HS SELENA Administration Ceftriaxone Sodium 2 gm/ 100 mls @ 200 mls/hr 01/24/20 20:00 01/28/20 20:14 Sodium Chloride IVPB 100 mls Q24HR SELENA Administration Insulin Human Lispro 0 units 01/18/20 16:27 01/28/20 17:50 Humalog 300 Units/3 Ml Vial SC 3 unit .MILD SLIDING SCALE PRN Administration Mild Correctional Scale Lisinopril 2.5 mg 01/19/20 09:00 01/28/20 09:20 Lisinopril 2.5 Mg Tab PO 2.5 mg DAILY SELENA Administration Metoprolol Succinate 50 mg 01/21/20 09:00 01/28/20 09:21 Metoprolol Succinate Xl 50 Mg Tab PO 50 mg DAILY SELENA Administration Metronidazole 250 mg 01/20/20 21:00 01/28/20 20:13 Metronidazole 250 Mg Tab PO 250 mg TID SELENA Administration Ondansetron HCl 4 mg 01/19/20 12:35 01/22/20 20:19 Ondansetron Pf 4 Mg/2 Ml Vial IVP 4 mg Q6H PRN Administration Nausea/Vomiting Pantoprazole Sodium 40 mg 01/19/20 09:00 01/28/20 09:21 Pantoprazole 40 Mg Tab PO 40 mg DAILY SELENA Administration Polyethylene Glycol 17 gm 01/22/20 20:18 01/25/20 08:17 Polyethylene Glycol 3350 17 Gm Packet PO 17 gm DAILYPRN PRN Administration Constipation Potassium Chloride 20 meq 01/26/20 17:00 01/28/20 17:12 Potassium Chloride 20 Meq Tab PO 20 meq BID-WM SELENA Administration Saccharomyces Boulardii 250 mg 01/27/20 09:00 01/28/20 09:20 Saccharomyces Boulardii 250 Mg Cap PO 250 mg DAILY SELENA Administration Sodium Chloride 10 ml 01/24/20 21:00 01/28/20 20:18 Flush - Normal Saline 10 Ml Syringe IVF 10 ml Q12HR SELENA Administration - Exam General Appearance: NAD Neck: supple, no JVD Heart: RRR, no gallops Respiratory: no wheezes, no ronchi Gastrointestinal: non-tender, normal bowel sounds Extremities: no cyanosis Extremities - other findings: Wound dressing noted Hosp A/P - Plan Sepsis due to diabetic left foot infection with gangrene s/p left fifth toe amputation On ceftriaxone with Flagyl per ID Diabetes mellitus type 2uncontrolled with hemoglobin A1c >14 - On Lantus with moderate sliding scale Hypokalemia/hyponatremia JORDYN on CKD stage III Ischemic cardiomyopathy/chronic systolic and diastolic heart failure Severe peripheral vascular disease Chronic anemia suspected due to nutritional deficiency Peripheral vascular disease Coronary artery disease s/p CABG Other issues per previous notes Plan: Continue antiplatelet agent. Continue current antibiotics. Patient is awaiting placement. Outpatient TCOM studies set up after 1 week. Recheck labs in a.m. Continue wound care. Continue sliding scale. DVT prophylaxis
[2020-01-29] MEDS: Acetaminophen 325 MG TAB PO PRN ×2 (01:50→10:57)
[2020-01-29 06:41] LABS: #Basophils 0.1 thou/uL (0.0-0.2); #Eosinphils 0.3 thou/uL (0.0-0.7); #Lymphocytes 1.6 thou/uL (1.20-3.40); #Monocytes 1.1 thou/uL (0.11-0.59); #Neutrophils 12.8 thou/uL (1.40-6.50); %Basophils 0.3 % (0.0-1.0); %Eosinophils 1.6 % (0.0-10.0); %Lymphocytes 9.8 % (21.0-51.0); %Monocytes 7.2 % (0.0-10.0); %Neutrophils 81.1 % (42.0-75.0); Hemoglobin 10.3 g/dL (14.0-18.0); Mean Corpuscular HGB CONC 31.7 g/dL (32.0-36.0); Mean Corpuscular Hemoglobin 27.3 pg (27.0-31.0); Mean Corpuscular Volume 86.1 fL (78.0-98.0); Mean Platelet Volume 8.3 fL (7.4-10.4); Platelet Count 426 thou/uL (130-400); RBC Distribution Width 14.1 % (11.5-14.5); Red Blood Cell (RBC) Count 3.78 mill/uL (4.70-6.10); White Blood Cell (WBC) Count 15.8 thou/uL (4.8-10.8)
[2020-01-29 07:07] LABS: Anion Gap 13 mmol/L (10-20); BUN (Urea Nitrogen) 24 mg/dL (8.4-25.7); Calc. Creatinine Clearance 56 mL/min (70-130); Calcium 8.2 mg/dL (7.8-10.44); Carbon Dioxide 30 mmol/L (23-31); Chloride 98 mmol/L (98-107); Estimated GFR-MDRD 57; Potassium 4.4 mmol/L (3.5-5.1); Sodium 137 mmol/L (136-145)
[2020-01-29 07:11] LABS: Glucose 58 mg/dL (83-110)
[2020-01-29] MEDS: Aspirin 81 mg Enteric Coated Tablet PO SCH (08:23)
[2020-01-29] MEDS: Furosemide 40 MG TAB PO SCH (08:23)
[2020-01-29] MEDS: Clopidogrel Bisulfate 75 MG TAB PO SCH (08:23)
[2020-01-29] MEDS: DULoxetine 30 MG CAP PO SCH (08:23)
[2020-01-29] MEDS: Potassium Chloride 20 MEQ TAB PO SCH ×2 (08:23→15:51)
[2020-01-29] MEDS: metroNIDAZOLE 250 MG TAB PO SCH ×3 (08:23→20:03)
[2020-01-29] MEDS: Heparin 5,000 UNITS/ML VIAL SC SCH ×2 (08:24→20:04)
[2020-01-29] MEDS: Saccharomyces boulardii 250 MG CAP PO SCH (08:24)
[2020-01-29] MEDS: Lisinopril 2.5 MG TAB PO SCH (08:25)
[2020-01-29] MEDS: Acetaminophen/Codeine 30-300mg Tablet PO PRN ×2 (15:52→20:03)
--- NOTE | 2020-01-29 17:10 | PDOC.HOSPP ---
- Subjective Encounter Date: 01/29/20 Encounter Time: 11:40 Subjective: Patient seen and examined for sepsis with diabetic foot infection. Complains of moderate to severe pain in the left foot. No fever or chills. - Objective Vital Signs & Weight: Vital Signs (12 hours) Temp Pulse Resp BP Pulse Ox 01/29/20 15:30 98.0 F 61 18 142/83 H 96 01/29/20 11:35 98.0 F 59 L 18 127/74 92 L 01/29/20 08:25 65 01/29/20 07:46 98.4 F 59 L 18 97/60 93 L Weight Admit Weight 175 lb 0.752 oz Weight 171 lb 12.8 oz I&O: 01/28/20 01/29/20 01/30/20 06:59 06:59 06:59 Intake Total 610 1365 Output Total 175 Balance 610 1190 Result Diagrams: 01/29/20 06:34 01/29/20 06:34 Additional Labs: Accuchecks 01/29/20 01/29/20 01/29/20 15:34 11:15 08:22 POC Glucose 273 H 206 H 159 H 01/29/20 01/28/20 05:29 20:12 POC Glucose 94 231 H Hospitalist ROS - Review of Systems Respiratory: denies: cough, dry, shortness of breath, hemoptysis, SOB with excertion, pleuritic pain, sputum, wheezing, other Cardiovascular: denies: chest pain, palpitations, orthopnea, paroxysmal noc. dyspnea, edema, light headedness, other - Medication Medications: Active Medications Generic Name Dose Route Start Last Admin Trade Name Adalq PRN Reason Stop Dose Admin Acetaminophen 650 mg 01/18/20 15:03 01/29/20 10:57 Acetaminophen 325 Mg Tab PO 650 mg Q6H PRN Administration Mild Pain (1-3) Acetaminophen/Codeine Phosphate 1 tab 01/29/20 14:50 01/29/20 15:52 Acetaminophen/Codeine 30-300mg Tablet PO 1 tab Q4H PRN Administration Moderate Pain (4-6) Aspirin 81 mg 01/20/20 09:00 01/29/20 08:23 Aspirin 81 Mg Enteric Coated Tablet PO 81 mg DAILY SELENA Administration Atorvastatin Calcium 40 mg 01/19/20 21:00 01/28/20 20:13 Atorvastatin Calcium 40 Mg Tab PO 40 mg HS SELENA Administration Benzonatate 100 mg 01/23/20 11:27 01/28/20 09:57 Benzonatate 100 Mg Cap PO 100 mg TIDPRN PRN Administration Cough Clopidogrel Bisulfate 75 mg 01/19/20 09:00 01/29/20 08:23 Clopidogrel Bisulfate 75 Mg Tab PO 75 mg DAILY SELENA Administration Dextrose/Water 25 gm 01/18/20 16:27 01/19/20 05:38 Dextrose 50% Abboject 50 Ml Syringe SLOW IVP 25 gm PRN PRN Administration Hypoglycemia Duloxetine HCl 30 mg 01/19/20 09:00 01/29/20 08:23 Duloxetine 30 Mg Cap PO 30 mg DAILY SELENA Administration Furosemide 40 mg 01/19/20 09:00 01/29/20 08:23 Furosemide 40 Mg Tab PO 40 mg DAILY SELENA Administration Heparin Sodium (Porcine) 5,000 units 01/20/20 21:00 01/29/20 08:24 Heparin 5,000 Units/Ml Vial SC 5,000 units BID SELENA Administration Ceftriaxone Sodium 2 gm/ 100 mls @ 200 mls/hr 01/24/20 20:00 01/28/20 20:14 Sodium Chloride IVPB 100 mls Q24HR SELENA Administration Insulin Human Lispro 0 units 01/18/20 16:27 01/28/20 17:50 Humalog 300 Units/3 Ml Vial SC 3 unit .MILD SLIDING SCALE PRN Administration Mild Correctional Scale Lisinopril 2.5 mg 01/19/20 09:00 01/29/20 08:25 Lisinopril 2.5 Mg Tab PO Not Given DAILY [facility] Metoprolol Succinate 50 mg 01/21/20 09:00 01/29/20 08:23 Metoprolol Succinate Xl 50 Mg Tab PO 50 mg DAILY SELENA Administration Metronidazole 250 mg 01/20/20 21:00 01/29/20 15:51 Metronidazole 250 Mg Tab PO 250 mg TID SELENA Administration Ondansetron HCl 4 mg 01/19/20 12:35 01/22/20 20:19 Ondansetron Pf 4 Mg/2 Ml Vial IVP 4 mg Q6H PRN Administration Nausea/Vomiting Pantoprazole Sodium 40 mg 01/19/20 09:00 01/29/20 08:23 Pantoprazole 40 Mg Tab PO 40 mg DAILY SELENA Administration Polyethylene Glycol 17 gm 01/22/20 20:18 01/25/20 08:17 Polyethylene Glycol 3350 17 Gm Packet PO 17 gm DAILYPRN PRN Administration Constipation Potassium Chloride 20 meq 01/26/20 17:00 01/29/20 15:51 Potassium Chloride 20 Meq Tab PO 20 meq BID-WM SELENA Administration Saccharomyces Boulardii 250 mg 01/27/20 09:00 01/29/20 08:24 Saccharomyces Boulardii 250 Mg Cap PO 250 mg DAILY SELENA Administration Sodium Chloride 10 ml 01/24/20 21:00 01/29/20 10:58 Flush - Normal Saline 10 Ml Syringe IVF 10 ml Q12HR SELENA Administration - Exam General Appearance: NAD Heart: RRR, no gallops Respiratory: no wheezes, no ronchi Gastrointestinal: non-tender, normal bowel sounds Extremities: no cyanosis, no clubbing Neurological: no new deficit Hosp A/P - Plan Sepsis due to diabetic left foot infection with gangrene s/p left fifth toe amputation On ceftriaxone with Flagyl per ID Diabetes mellitus type 2uncontrolled with hemoglobin A1c >14 - On Lantus with moderate sliding scale Hypokalemia/hyponatremia JORDYN on CKD stage III Ischemic cardiomyopathy/chronic systolic and diastolic heart failure Severe peripheral vascular disease Chronic anemia suspected due to nutritional deficiency Peripheral vascular disease Coronary artery disease s/p CABG Other issues per previous notes Plan: Continue IV ceftriaxone. Continue IV Flagyl. WBC count improving. Will reduce Lantus to 15 units nightly due to hypoglycemia earlier. Continue aspirin with Plavix. Continue lisinopril with metoprolol. Discontinue potassium supplementation. Continue other medications as above. Optimize pain medicine. Await placement. 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 High-grade left artery popliteal stenosis. Foot x-raysubcutaneous soft tissue swelling and emphysema in the lateral left foot at the level of the fifth metatarsal
[2020-01-29] MEDS: cefTRIAXone\\ROCEPHIN 2 GM in Sodium Chloride 0.9% 100 ML IVPB SCH (20:04)
[2020-01-29] MEDS: Atorvastatin Calcium 40 MG TAB PO SCH (20:04)
[2020-01-29] MEDS: Benzonatate 100 MG CAP PO PRN (20:04)
[2020-01-29] MEDS: Insulin Glargine 15 UNITS in Pre-Filled Syringe 1 EACH SC SCH (22:28)
[2020-01-30] MEDS: Acetaminophen/Codeine 30-300mg Tablet PO PRN ×4 (04:50→21:07)
[2020-01-30] MEDS: Benzonatate 100 MG CAP PO PRN (04:55)
[2020-01-30 07:20] VITALS: BMI 26.6
[2020-01-30] MEDS: Lisinopril 2.5 MG TAB PO SCH (09:36)
[2020-01-30] MEDS: Saccharomyces boulardii 250 MG CAP PO SCH (09:36)
[2020-01-30] MEDS: Clopidogrel Bisulfate 75 MG TAB PO SCH (09:37)
[2020-01-30] MEDS: Aspirin 81 mg Enteric Coated Tablet PO SCH (09:37)
[2020-01-30] MEDS: Furosemide 40 MG TAB PO SCH (09:37)
[2020-01-30] MEDS: DULoxetine 30 MG CAP PO SCH (09:37)
[2020-01-30] MEDS: metroNIDAZOLE 250 MG TAB PO SCH ×3 (09:37→21:08)
[2020-01-30] MEDS: Heparin 5,000 UNITS/ML VIAL SC SCH ×2 (09:37→21:08)
[2020-01-30] MEDS: HumaLOG 300 UNITS/3 ML VIAL SC PRN ×2 (11:38→17:16)
[2020-01-30] MEDS ORDERED: Diabetic Tussin 200 MG/10 ML UDCUP PO PRN (11:46)
--- NOTE | 2020-01-30 15:24 | PDOC.HOSPP ---
- Subjective Encounter Date: 01/30/20 Encounter Time: 11:00 Subjective: Patient seen and examined for foot infection. No overnight issues. Continues to have mild to moderate pain around the surgical site. - Objective Vital Signs & Weight: Vital Signs (12 hours) Temp Pulse Resp BP BP BP Pulse Ox 01/30/20 11:41 98.5 F 62 14 151/99 H 92 L 01/30/20 09:37 95 01/30/20 09:36 64 138/71 01/30/20 08:06 97.8 F 64 16 138/71 95 Weight Admit Weight 175 lb 0.752 oz Weight 175 lb 9.6 oz I&O: 01/29/20 01/30/20 01/31/20 06:59 06:59 06:59 Intake Total 1365 750 515 Output Total 175 350 125 Balance 1190 400 390 Result Diagrams: 01/29/20 06:34 01/29/20 06:34 Additional Labs: Accuchecks 01/30/20 01/30/20 01/29/20 11:27 05:37 22:27 POC Glucose 268 H 200 H 292 H 01/29/20 01/29/20 21:17 15:34 POC Glucose 326 H 273 H Hospitalist ROS - Review of Systems Respiratory: denies: cough, dry, shortness of breath, hemoptysis, SOB with excertion, pleuritic pain, sputum, wheezing, other Cardiovascular: denies: chest pain, palpitations, orthopnea, paroxysmal noc. dyspnea, edema, light headedness, other - Medication Medications: Active Medications Generic Name Dose Route Start Last Admin Trade Name Freq PRN Reason Stop Dose Admin Acetaminophen 650 mg 01/18/20 15:03 01/29/20 10:57 Acetaminophen 325 Mg Tab PO 650 mg Q6H PRN Administration Mild Pain (1-3) Acetaminophen/Codeine Phosphate 1 tab 01/29/20 14:50 01/30/20 14:57 Acetaminophen/Codeine 30-300mg Tablet PO 1 tab Q4H PRN Administration Moderate Pain (4-6) Aspirin 81 mg 01/20/20 09:00 01/30/20 09:37 Aspirin 81 Mg Enteric Coated Tablet PO 81 mg DAILY SELENA Administration Atorvastatin Calcium 40 mg 01/19/20 21:00 01/29/20 20:04 Atorvastatin Calcium 40 Mg Tab PO 40 mg HS SELENA Administration Benzonatate 100 mg 01/23/20 11:27 01/30/20 04:55 Benzonatate 100 Mg Cap PO 100 mg TIDPRN PRN Administration Cough Clopidogrel Bisulfate 75 mg 01/19/20 09:00 01/30/20 09:37 Clopidogrel Bisulfate 75 Mg Tab PO 75 mg DAILY SELENA Administration Dextrose/Water 25 gm 01/18/20 16:27 01/19/20 05:38 Dextrose 50% Abboject 50 Ml Syringe SLOW IVP 25 gm PRN PRN Administration Hypoglycemia Duloxetine HCl 30 mg 01/19/20 09:00 01/30/20 09:37 Duloxetine 30 Mg Cap PO 30 mg DAILY SELENA Administration Furosemide 40 mg 01/19/20 09:00 01/30/20 09:37 Furosemide 40 Mg Tab PO 40 mg DAILY SELENA Administration Heparin Sodium (Porcine) 5,000 units 01/20/20 21:00 01/30/20 09:37 Heparin 5,000 Units/Ml Vial SC 5,000 units BID SELENA Administration Ceftriaxone Sodium 2 gm/ 100 mls @ 200 mls/hr 01/24/20 20:00 01/29/20 20:04 Sodium Chloride IVPB 100 mls Q24HR SELENA Administration Insulin Glargine 15 units/ 0.15 mls @ 0 mls/hr 01/29/20 21:00 01/29/20 22:28 Miscellaneous Medication SC 0.15 mls HS SELENA Administration Insulin Human Lispro 0 units 01/18/20 16:27 01/30/20 11:38 Humalog 300 Units/3 Ml Vial SC 4 unit .MILD SLIDING SCALE PRN Administration Mild Correctional Scale Lisinopril 2.5 mg 01/19/20 09:00 01/30/20 09:36 Lisinopril 2.5 Mg Tab PO 2.5 mg DAILY SELENA Administration Metoprolol Succinate 50 mg 01/21/20 09:00 01/30/20 09:37 Metoprolol Succinate Xl 50 Mg Tab PO 50 mg DAILY SELENA Administration Metronidazole 250 mg 01/20/20 21:00 01/30/20 14:55 Metronidazole 250 Mg Tab PO 250 mg TID SELENA Administration Ondansetron HCl 4 mg 01/19/20 12:35 01/22/20 20:19 Ondansetron Pf 4 Mg/2 Ml Vial IVP 4 mg Q6H PRN Administration Nausea/Vomiting Pantoprazole Sodium 40 mg 01/19/20 09:00 01/30/20 09:37 Pantoprazole 40 Mg Tab PO 40 mg DAILY SELENA Administration Polyethylene Glycol 17 gm 01/22/20 20:18 01/25/20 08:17 Polyethylene Glycol 3350 17 Gm Packet PO 17 gm DAILYPRN PRN Administration Constipation Saccharomyces Boulardii 250 mg 01/27/20 09:00 01/30/20 09:36 Saccharomyces Boulardii 250 Mg Cap PO 250 mg DAILY SELENA Administration Sodium Chloride 10 ml 01/24/20 21:00 01/29/20 20:05 Flush - Normal Saline 10 Ml Syringe IVF 10 ml Q12HR SELENA Administration - Exam General Appearance: NAD Neck: supple, no JVD Heart: RRR, no gallops Respiratory: no wheezes, no ronchi Gastrointestinal: soft, non-tender, normal bowel sounds Extremities: no cyanosis Extremities - other findings: Foot dressing Hosp A/P - Plan Sepsis due to diabetic left foot infection with gangrene s/p left fifth toe amputation On ceftriaxone with Flagyl per ID Diabetes mellitus type 2uncontrolled with hemoglobin A1c >14 - On Lantus with moderate sliding scale Hypokalemia/hyponatremia JORDYN on CKD stage III Ischemic cardiomyopathy/chronic systolic and diastolic heart failure Severe peripheral vascular disease Chronic anemia suspected due to nutritional deficiency Peripheral vascular disease Coronary artery disease s/p CABG Other issues per previous notes Plan: Continue ceftriaxone with Flagyl per ID. Continue Lantus with sliding scale. Continue aspirin, Plavix, lisinopril and Toprol-XL. Continue other medications as above. Patient is stable for discharge. He is awaiting intermediate facility placement. 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 High-grade left artery popliteal stenosis. Foot x-raysubcutaneous soft tissue swelling and emphysema in the lateral left foot at the level of the fifth metatarsal
[2020-01-30] MEDS: traMADol HCl 50 MG TAB PO PRN (17:18)
[2020-01-30] MEDS: guaiFENesin ER 600 MG TAB PO SCH (21:07)
[2020-01-30] MEDS: Atorvastatin Calcium 40 MG TAB PO SCH (21:07)
[2020-01-30] MEDS: cefTRIAXone\\ROCEPHIN 2 GM in Sodium Chloride 0.9% 100 ML IVPB SCH (21:08)
[2020-01-30] MEDS: Insulin Glargine 15 UNITS in Pre-Filled Syringe 1 EACH SC SCH (21:08)
[2020-01-31] MEDS: HumaLOG 300 UNITS/3 ML VIAL SC PRN ×3 (06:00→20:19)
[2020-01-31] MEDS: Acetaminophen/Codeine 30-300mg Tablet PO PRN ×3 (08:07→20:17)
[2020-01-31] MEDS: metroNIDAZOLE 250 MG TAB PO SCH ×3 (08:08→20:18)
[2020-01-31] MEDS: Clopidogrel Bisulfate 75 MG TAB PO SCH (08:08)
[2020-01-31] MEDS: Furosemide 40 MG TAB PO SCH (08:08)
[2020-01-31] MEDS: guaiFENesin ER 600 MG TAB PO SCH ×2 (08:08→20:18)
[2020-01-31] MEDS: Aspirin 81 mg Enteric Coated Tablet PO SCH (08:08)
[2020-01-31] MEDS: Lisinopril 2.5 MG TAB PO SCH (08:08)
[2020-01-31] MEDS: Saccharomyces boulardii 250 MG CAP PO SCH (08:09)
[2020-01-31] MEDS: DULoxetine 30 MG CAP PO SCH (08:09)
[2020-01-31] MEDS: Heparin 5,000 UNITS/ML VIAL SC SCH ×2 (08:09→20:18)
--- NOTE | 2020-01-31 15:48 | PDOC.HOSPP ---
- Subjective Encounter Date: 01/31/20 Encounter Time: 10:00 Subjective: Patient seen and examined for sepsis/diabetic foot infection. Denies any new complaints. Pain controlled. - Objective Vital Signs & Weight: Vital Signs (12 hours) Temp Pulse Resp BP BP BP Pulse Ox 01/31/20 11:45 98.1 F 63 16 153/62 H 97 01/31/20 09:53 98.1 F 66 18 112/77 95 01/31/20 08:08 112/77 01/31/20 06:05 97.8 F 64 16 128/67 97 Weight Admit Weight 175 lb 0.752 oz Weight 175 lb I&O: 01/30/20 01/31/20 02/01/20 06:59 06:59 06:59 Intake Total 750 1755 Output Total 350 125 Balance 400 1630 Result Diagrams: 01/29/20 06:34 01/29/20 06:34 Additional Labs: Accuchecks 01/31/20 01/30/20 01/30/20 11:54 19:20 16:43 POC Glucose 153 H 209 H 263 H Radiology Reviewed by me: Yes (Foot x-rayreviewed) Hospitalist ROS - Review of Systems Respiratory: denies: cough, dry, shortness of breath, hemoptysis, SOB with excertion, pleuritic pain, sputum, wheezing, other Cardiovascular: denies: chest pain, palpitations, orthopnea, paroxysmal noc. dyspnea, edema, light headedness, other Gastrointestinal: denies: nausea, vomiting, abdominal pain, diarrhea, constipation, melena, hematochezia, other - Medication Medications: Active Medications Generic Name Dose Route Start Last Admin Trade Name Freq PRN Reason Stop Dose Admin Acetaminophen 650 mg 01/18/20 15:03 01/29/20 10:57 Acetaminophen 325 Mg Tab PO 650 mg Q6H PRN Administration Mild Pain (1-3) Acetaminophen/Codeine Phosphate 1 tab 01/29/20 14:50 01/31/20 15:21 Acetaminophen/Codeine 30-300mg Tablet PO 1 tab Q4H PRN Administration Moderate Pain (4-6) Aspirin 81 mg 01/20/20 09:00 01/31/20 08:08 Aspirin 81 Mg Enteric Coated Tablet PO 81 mg DAILY SELENA Administration Atorvastatin Calcium 40 mg 01/19/20 21:00 01/30/20 21:07 Atorvastatin Calcium 40 Mg Tab PO 40 mg HS SELENA Administration Benzonatate 100 mg 01/23/20 11:27 01/30/20 04:55 Benzonatate 100 Mg Cap PO 100 mg TIDPRN PRN Administration Cough Clopidogrel Bisulfate 75 mg 01/19/20 09:00 01/31/20 08:08 Clopidogrel Bisulfate 75 Mg Tab PO 75 mg DAILY SELENA Administration Dextrose/Water 25 gm 01/18/20 16:27 01/19/20 05:38 Dextrose 50% Abboject 50 Ml Syringe SLOW IVP 25 gm PRN PRN Administration Hypoglycemia Duloxetine HCl 30 mg 01/19/20 09:00 01/31/20 08:09 Duloxetine 30 Mg Cap PO 30 mg DAILY SELENA Administration Furosemide 40 mg 01/19/20 09:00 01/31/20 08:08 Furosemide 40 Mg Tab PO 40 mg DAILY SELENA Administration Guaifenesin 600 mg 01/30/20 21:00 01/31/20 08:08 Guaifenesin Er 600 Mg Tab PO 600 mg Q12HR SELENA Administration Guaifenesin 200 mg 01/30/20 11:46 01/30/20 17:17 Diabetic Tussin 200 Mg/10 Ml Udcup PO 200 mg Q4H PRN Administration Cough Heparin Sodium (Porcine) 5,000 units 01/20/20 21:00 01/31/20 08:09 Heparin 5,000 Units/Ml Vial SC 5,000 units BID SELENA Administration Ceftriaxone Sodium 2 gm/ 100 mls @ 200 mls/hr 01/24/20 20:00 01/30/20 21:08 Sodium Chloride IVPB 100 mls Q24HR SELENA Administration Insulin Glargine 15 units/ 0.15 mls @ 0 mls/hr 01/29/20 21:00 01/30/20 21:08 Miscellaneous Medication SC 0.15 mls HS SELENA Administration Insulin Human Lispro 0 units 01/18/20 16:27 01/31/20 06:00 Humalog 300 Units/3 Ml Vial SC 3 unit .MILD SLIDING SCALE PRN Administration Mild Correctional Scale Lisinopril 2.5 mg 01/19/20 09:00 01/31/20 08:08 Lisinopril 2.5 Mg Tab PO 2.5 mg DAILY SELENA Administration Metoprolol Succinate 50 mg 01/21/20 09:00 01/31/20 08:08 Metoprolol Succinate Xl 50 Mg Tab PO 50 mg DAILY SELENA Administration Metronidazole 250 mg 01/20/20 21:00 01/31/20 15:21 Metronidazole 250 Mg Tab PO 250 mg TID SELENA Administration Ondansetron HCl 4 mg 01/19/20 12:35 01/22/20 20:19 Ondansetron Pf 4 Mg/2 Ml Vial IVP 4 mg Q6H PRN Administration Nausea/Vomiting Pantoprazole Sodium 40 mg 01/19/20 09:00 01/31/20 08:08 Pantoprazole 40 Mg Tab PO 40 mg DAILY SELENA Administration Polyethylene Glycol 17 gm 01/22/20 20:18 01/25/20 08:17 Polyethylene Glycol 3350 17 Gm Packet PO 17 gm DAILYPRN PRN Administration Constipation Saccharomyces Boulardii 250 mg 01/27/20 09:00 01/31/20 08:09 Saccharomyces Boulardii 250 Mg Cap PO 250 mg DAILY SELENA Administration Sodium Chloride 10 ml 01/24/20 21:00 01/30/20 21:09 Flush - Normal Saline 10 Ml Syringe IVF 10 ml Q12HR SELENA Administration Tramadol HCl 50 mg 01/30/20 15:15 01/30/20 17:18 Tramadol Hcl 50 Mg Tab PO 50 mg Q6H PRN Administration Severe Pain (7-10) - Exam General Appearance: NAD Heart: RRR, no gallops Respiratory: no wheezes, no ronchi Gastrointestinal: soft, non-tender, normal bowel sounds Extremities: no cyanosis Neurological: no new deficit Hosp A/P - Plan Sepsis due to diabetic left foot infection with gangrene s/p left fifth toe amputation On ceftriaxone with Flagyl per ID Diabetes mellitus type 2uncontrolled with hemoglobin A1c >14 - On Lantus with moderate sliding scale Hypokalemia/hyponatremia JORDYN on CKD stage III Ischemic cardiomyopathy/chronic systolic and diastolic heart failure Severe peripheral vascular disease Chronic anemia suspected due to nutritional deficiency Peripheral vascular disease Coronary artery disease s/p CABG Other issues per previous notes Plan: Await nursing home facility placement. Patient is stable for discharge. Continue oral Flagyl with ceftriaxone per ID. Continue current dose of sliding scale with Lantus. Continue dual antiplatelet with lisinopril and Toprol-XL. Continue other medications as above. 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 High-grade left artery popliteal stenosis. Foot x-raysubcutaneous soft tissue swelling and emphysema in the lateral left foot at the level of the fifth metatarsal
[2020-01-31] MEDS: cefTRIAXone\\ROCEPHIN 2 GM in Sodium Chloride 0.9% 100 ML IVPB SCH (20:18)
[2020-01-31] MEDS: Atorvastatin Calcium 40 MG TAB PO SCH (20:18)
[2020-01-31] MEDS: Insulin Glargine 15 UNITS in Pre-Filled Syringe 1 EACH SC SCH (20:19)
[2020-01-31] MEDS ORDERED: Morphine 2 MG/ML VIAL SLOW IVP SCH (22:30)
[2020-01-31] MEDS: Ondansetron PF 4 MG/2 ML Vial IVP PRN (23:56)
[2020-02-01] MEDS: Acetaminophen/Codeine 30-300mg Tablet PO PRN ×4 (01:21→23:51)
[2020-02-01] MEDS: metroNIDAZOLE 250 MG TAB PO SCH ×3 (08:34→21:20)
[2020-02-01] MEDS: Clopidogrel Bisulfate 75 MG TAB PO SCH (08:34)
[2020-02-01] MEDS: Aspirin 81 mg Enteric Coated Tablet PO SCH (08:34)
[2020-02-01] MEDS: guaiFENesin ER 600 MG TAB PO SCH ×2 (08:34→21:20)
[2020-02-01] MEDS: Furosemide 40 MG TAB PO SCH (08:34)
[2020-02-01] MEDS: Saccharomyces boulardii 250 MG CAP PO SCH (08:34)
[2020-02-01] MEDS: DULoxetine 30 MG CAP PO SCH (08:34)
[2020-02-01] MEDS: Lisinopril 2.5 MG TAB PO SCH (08:35)
[2020-02-01] MEDS: Heparin 5,000 UNITS/ML VIAL SC SCH ×2 (08:35→21:20)
[2020-02-01] MEDS: traMADol HCl 50 MG TAB PO PRN (10:44)
[2020-02-01] MEDS: Acetaminophen 325 MG TAB PO PRN (10:45)
[2020-02-01] MEDS: HumaLOG 300 UNITS/3 ML VIAL SC PRN ×3 (12:01→21:19)
--- NOTE | 2020-02-01 14:57 | PDOC.HOSPP ---
- Subjective Encounter Date: 02/01/20 Encounter Time: 09:00 Subjective: Patient seen and examined for diabetic foot infection. Denies any fever or chills. Mild to moderate pain over the surgical site. - Objective Vital Signs & Weight: Vital Signs (12 hours) Temp Pulse Resp BP BP Pulse Ox 02/01/20 11:15 98.4 F 60 18 131/64 95 02/01/20 08:35 68 103/69 02/01/20 08:20 92 L 02/01/20 07:25 97.7 F 68 18 103/69 92 L Weight Admit Weight 175 lb 0.752 oz Weight 175 lb I&O: 01/31/20 02/01/20 02/02/20 06:59 06:59 06:59 Intake Total 1755 750 Output Total 125 500 Balance 1630 250 Result Diagrams: 01/29/20 06:34 01/29/20 06:34 Additional Labs: Accuchecks 02/01/20 02/01/20 01/31/20 11:30 02:36 23:28 POC Glucose 276 H 71 141 H 01/31/20 01/31/20 01/31/20 20:15 16:35 05:58 POC Glucose 229 H 227 H 210 H Hospitalist ROS - Review of Systems Cardiovascular: denies: chest pain, palpitations, orthopnea, paroxysmal noc. dyspnea, edema, light headedness, other Gastrointestinal: denies: nausea, vomiting, abdominal pain, diarrhea, constipation, melena, hematochezia, other - Medication Medications: Active Medications Generic Name Dose Route Start Last Admin Trade Name Freq PRN Reason Stop Dose Admin Acetaminophen 650 mg 01/18/20 15:03 02/01/20 10:45 Acetaminophen 325 Mg Tab PO 650 mg Q6H PRN Administration Mild Pain (1-3) Acetaminophen/Codeine Phosphate 1 tab 01/29/20 14:50 02/01/20 08:33 Acetaminophen/Codeine 30-300mg Tablet PO 1 tab Q4H PRN Administration Moderate Pain (4-6) Aspirin 81 mg 01/20/20 09:00 02/01/20 08:34 Aspirin 81 Mg Enteric Coated Tablet PO 81 mg DAILY SELENA Administration Atorvastatin Calcium 40 mg 01/19/20 21:00 01/31/20 20:18 Atorvastatin Calcium 40 Mg Tab PO 40 mg HS SELENA Administration Benzonatate 100 mg 01/23/20 11:27 01/30/20 04:55 Benzonatate 100 Mg Cap PO 100 mg TIDPRN PRN Administration Cough Clopidogrel Bisulfate 75 mg 01/19/20 09:00 02/01/20 08:34 Clopidogrel Bisulfate 75 Mg Tab PO 75 mg DAILY SELENA Administration Dextrose/Water 25 gm 01/18/20 16:27 01/19/20 05:38 Dextrose 50% Abboject 50 Ml Syringe SLOW IVP 25 gm PRN PRN Administration Hypoglycemia Duloxetine HCl 30 mg 01/19/20 09:00 02/01/20 08:34 Duloxetine 30 Mg Cap PO 30 mg DAILY SELENA Administration Furosemide 40 mg 01/19/20 09:00 02/01/20 08:34 Furosemide 40 Mg Tab PO 40 mg DAILY SELENA Administration Guaifenesin 600 mg 01/30/20 21:00 02/01/20 08:34 Guaifenesin Er 600 Mg Tab PO 600 mg Q12HR SELENA Administration Guaifenesin 200 mg 01/30/20 11:46 01/30/20 17:17 Diabetic Tussin 200 Mg/10 Ml Udcup PO 200 mg Q4H PRN Administration Cough Heparin Sodium (Porcine) 5,000 units 01/20/20 21:00 02/01/20 08:35 Heparin 5,000 Units/Ml Vial SC 5,000 units BID SELENA Administration Ceftriaxone Sodium 2 gm/ 100 mls @ 200 mls/hr 01/24/20 20:00 01/31/20 20:18 Sodium Chloride IVPB 100 mls Q24HR SELENA Administration Insulin Human Lispro 0 units 01/18/20 16:27 02/01/20 12:01 Humalog 300 Units/3 Ml Vial SC 4 unit .MILD SLIDING SCALE PRN Administration Mild Correctional Scale Lisinopril 2.5 mg 01/19/20 09:00 02/01/20 08:35 Lisinopril 2.5 Mg Tab PO Not Given DAILY SELENA Metoprolol Succinate 50 mg 01/21/20 09:00 02/01/20 08:35 Metoprolol Succinate Xl 50 Mg Tab PO 50 mg DAILY SELENA Administration Metronidazole 250 mg 01/20/20 21:00 02/01/20 08:34 Metronidazole 250 Mg Tab PO 250 mg TID SELENA Administration Ondansetron HCl 4 mg 01/19/20 12:35 01/31/20 23:56 Ondansetron Pf 4 Mg/2 Ml Vial IVP 4 mg Q6H PRN Administration Nausea/Vomiting Pantoprazole Sodium 40 mg 01/19/20 09:00 02/01/20 08:35 Pantoprazole 40 Mg Tab PO 40 mg DAILY SELENA Administration Polyethylene Glycol 17 gm 01/22/20 20:18 01/25/20 08:17 Polyethylene Glycol 3350 17 Gm Packet PO 17 gm DAILYPRN PRN Administration Constipation Saccharomyces Boulardii 250 mg 01/27/20 09:00 02/01/20 08:34 Saccharomyces Boulardii 250 Mg Cap PO 250 mg DAILY SELENA Administration Sodium Chloride 10 ml 01/24/20 21:00 02/01/20 08:36 Flush - Normal Saline 10 Ml Syringe IVF 10 ml Q12HR SELENA Administration Tramadol HCl 50 mg 01/30/20 15:15 02/01/20 10:44 Tramadol Hcl 50 Mg Tab PO 50 mg Q6H PRN Administration Severe Pain (7-10) - Exam General Appearance: NAD Heart: RRR, no gallops Respiratory: no wheezes, no ronchi Gastrointestinal: soft, non-distended Extremities: no cyanosis Extremities - other findings: Foot dressing noted Neurological: no new deficit Psychiatric: normal affect, A&O x 3 Hosp A/P - Plan Sepsis due to diabetic left foot infection with gangrene s/p left fifth toe amputation with debridement on 01/21 On ceftriaxone with Flagyl per ID Diabetes mellitus type 2uncontrolled with hemoglobin A1c >14 - On Lantus with moderate sliding scale Hypokalemia/hyponatremia JORDYN on CKD stage III Ischemic cardiomyopathy/chronic systolic and diastolic heart failure Severe peripheral vascular disease Chronic anemia suspected due to nutritional deficiency Peripheral vascular disease Coronary artery disease s/p CABG Other issues per previous notes Plan: Continue ceftriaxone with Flagyl per infectious disease. Reduce Lantus to 10 units daily. Change sliding scale to moderate. Continue aspirin with Plavix. Continue beta-blockers and KAVIN inhibitor. Await care home facility placement. Continue other medications as above Diagnostic tests: Arterial Dopplermonophasic waveform in the popliteal artery and femoral to popliteal artery bypass graft CT angiogram of aortaocclusion of the right distal femoralpopliteal bypass graft and popliteal artery with minimal opacification of the right peroneal artery on the right. High-grade left artery popliteal stenosis. Foot x-raysubcutaneous soft tissue swelling and emphysema in the lateral left foot at the level of the fifth metatarsal
[2020-02-01] MEDS: HYDROcodone/Acetaminophen 5/325 mg Tablet PO PRN ×2 (15:28→22:09)
[2020-02-01] MEDS: cefTRIAXone\\ROCEPHIN 2 GM in Sodium Chloride 0.9% 100 ML IVPB SCH (21:20)
[2020-02-01] MEDS: Insulin Glargine 10 UNITS in Pre-Filled Syringe 1 EACH SC SCH (21:20)
[2020-02-01] MEDS: Atorvastatin Calcium 40 MG TAB PO SCH (21:20)
[2020-02-02] MEDS: HYDROcodone/Acetaminophen 5/325 mg Tablet PO PRN (03:53)
[2020-02-02] MEDS: Acetaminophen/Codeine 30-300mg Tablet PO PRN ×4 (06:10→18:26)
[2020-02-02] MEDS: DULoxetine 30 MG CAP PO SCH (08:50)
[2020-02-02] MEDS: metroNIDAZOLE 250 MG TAB PO SCH ×3 (08:50→20:38)
[2020-02-02] MEDS: Saccharomyces boulardii 250 MG CAP PO SCH (08:50)
[2020-02-02] MEDS: Lisinopril 2.5 MG TAB PO SCH (08:50)
[2020-02-02] MEDS: Aspirin 81 mg Enteric Coated Tablet PO SCH (08:50)
[2020-02-02] MEDS: Furosemide 40 MG TAB PO SCH (08:50)
[2020-02-02] MEDS: Clopidogrel Bisulfate 75 MG TAB PO SCH (08:50)
[2020-02-02] MEDS: guaiFENesin ER 600 MG TAB PO SCH ×2 (08:51→20:39)
[2020-02-02] MEDS: Heparin 5,000 UNITS/ML VIAL SC SCH ×2 (08:51→20:38)
[2020-02-02] MEDS: HumaLOG 300 UNITS/3 ML VIAL SC PRN ×3 (11:39→20:38)
--- NOTE | 2020-02-02 12:41 | PDOC.HOSPP ---
- Subjective Encounter Date: 02/02/20 Encounter Time: 10:30 Subjective: no new complaints feels better, is eating well has some pain in his left foot - Objective Vital Signs & Weight: Vital Signs (12 hours) Temp Pulse Resp BP BP BP Pulse Ox 02/02/20 11:20 97.3 F L 82 16 121/73 92 L 02/02/20 08:50 64 98/66 02/02/20 08:00 93 L 02/02/20 07:50 98.4 F 64 18 98/86 93 L 02/02/20 04:50 98.6 F 70 18 120/74 96 Weight Admit Weight 175 lb 0.752 oz Weight 175 lb I&O: 02/01/20 02/02/20 02/03/20 06:59 06:59 06:59 Intake Total 750 1325 Output Total 500 1100 Balance 250 225 Result Diagrams: 01/29/20 06:34 01/29/20 06:34 Additional Labs: Accuchecks 02/02/20 02/02/20 02/01/20 11:07 06:10 21:18 POC Glucose 240 H 120 H 208 H 02/01/20 15:38 POC Glucose 267 H Hospitalist ROS - Medication Medications: Active Medications Generic Name Dose Route Start Last Admin Trade Name Freq PRN Reason Stop Dose Admin Acetaminophen 650 mg 01/18/20 15:03 02/01/20 10:45 Acetaminophen 325 Mg Tab PO 650 mg Q6H PRN Administration Mild Pain (1-3) Acetaminophen/Codeine Phosphate 1 tab 01/29/20 14:50 02/02/20 10:06 Acetaminophen/Codeine 30-300mg Tablet PO 1 tab Q4H PRN Administration Moderate Pain (4-6) Aspirin 81 mg 01/20/20 09:00 02/02/20 08:50 Aspirin 81 Mg Enteric Coated Tablet PO 81 mg DAILY SELENA Administration Atorvastatin Calcium 40 mg 01/19/20 21:00 02/01/20 21:20 Atorvastatin Calcium 40 Mg Tab PO 40 mg HS SELENA Administration Benzonatate 100 mg 01/23/20 11:27 01/30/20 04:55 Benzonatate 100 Mg Cap PO 100 mg TIDPRN PRN Administration Cough Clopidogrel Bisulfate 75 mg 01/19/20 09:00 02/02/20 08:50 Clopidogrel Bisulfate 75 Mg Tab PO 75 mg DAILY SELENA Administration Dextrose/Water 25 gm 01/18/20 16:27 01/19/20 05:38 Dextrose 50% Abboject 50 Ml Syringe SLOW IVP 25 gm PRN PRN Administration Hypoglycemia Duloxetine HCl 30 mg 01/19/20 09:00 02/02/20 08:50 Duloxetine 30 Mg Cap PO 30 mg DAILY SELENA Administration Furosemide 40 mg 01/19/20 09:00 02/02/20 08:50 Furosemide 40 Mg Tab PO 40 mg DAILY SELENA Administration Guaifenesin 600 mg 01/30/20 21:00 02/02/20 08:51 Guaifenesin Er 600 Mg Tab PO 600 mg Q12HR SELENA Administration Guaifenesin 200 mg 01/30/20 11:46 01/30/20 17:17 Diabetic Tussin 200 Mg/10 Ml Udcup PO 200 mg Q4H PRN Administration Cough Heparin Sodium (Porcine) 5,000 units 01/20/20 21:00 02/02/20 08:51 Heparin 5,000 Units/Ml Vial SC 5,000 units BID SELENA Administration Ceftriaxone Sodium 2 gm/ 100 mls @ 200 mls/hr 01/24/20 20:00 02/01/20 21:20 Sodium Chloride IVPB 100 mls Q24HR SELENA Administration Insulin Glargine 10 units/ 0.1 mls @ 0 mls/hr 02/01/20 21:00 02/01/20 21:20 Miscellaneous Medication SC 0.1 mls HS SELENA Administration Insulin Human Lispro 0 units 02/01/20 15:00 02/02/20 11:39 Humalog 300 Units/3 Ml Vial SC 4 unit .MODERATE SLIDING SC PRN Administration Moderate Correctional Scale Lisinopril 2.5 mg 01/19/20 09:00 02/02/20 08:50 Lisinopril 2.5 Mg Tab PO Not Given DAILY [facility] Metoprolol Succinate 50 mg 01/21/20 09:00 02/02/20 08:50 Metoprolol Succinate Xl 50 Mg Tab PO Not Given DAILY [facility] Metronidazole 250 mg 01/20/20 21:00 02/02/20 08:50 Metronidazole 250 Mg Tab PO 250 mg TID SELENA Administration Ondansetron HCl 4 mg 01/19/20 12:35 01/31/20 23:56 Ondansetron Pf 4 Mg/2 Ml Vial IVP 4 mg Q6H PRN Administration Nausea/Vomiting Pantoprazole Sodium 40 mg 01/19/20 09:00 02/02/20 08:53 Pantoprazole 40 Mg Tab PO 40 mg DAILY SELENA Administration Polyethylene Glycol 17 gm 01/22/20 20:18 01/25/20 08:17 Polyethylene Glycol 3350 17 Gm Packet PO 17 gm DAILYPRN PRN Administration Constipation Saccharomyces Boulardii 250 mg 01/27/20 09:00 02/02/20 08:50 Saccharomyces Boulardii 250 Mg Cap PO 250 mg DAILY SELENA Administration Sodium Chloride 10 ml 01/24/20 21:00 02/02/20 08:53 Flush - Normal Saline 10 Ml Syringe IVF 10 ml Q12HR SELENA Administration Tramadol HCl 50 mg 01/30/20 15:15 02/01/20 10:44 Tramadol Hcl 50 Mg Tab PO 50 mg Q6H PRN Administration Severe Pain (7-10) - Exam General Appearance: awake alert Eye: PERRL, anicteric sclera ENT: no oropharyngeal lesions, moist mucosa Neck: supple, no JVD Heart: RRR, no murmur Respiratory: no wheezes, no rales Gastrointestinal: soft, non-tender, non-distended, normal bowel sounds Extremities: 1+ LE edema Extremities - other findings: left foot in dressing, right LE edema ++ Neurological: cranial nerve grossly intact, no focal deficits Hosp A/P (1) Diabetic foot ulcer Code(s): E11.621 - TYPE 2 DIABETES MELLITUS WITH FOOT ULCER; L97.509 - NON- PRESSURE CHRONIC ULCER OTH PRT UNSP FOOT W UNSP SEVERITY Status: Acute Qualifiers: Diabetic foot ulcer location: toe Diabetes mellitus type: type 2 Laterality: left Non-pressure ulcer stage: unspecified non-pressure ulcer stage Qualified Code(s): E11.621 - Type 2 diabetes mellitus with foot ulcer; L97.529 - Non-pressure chronic ulcer of other part of left foot with unspecified severity (2) Cardiomyopathy Code(s): I42.9 - CARDIOMYOPATHY, UNSPECIFIED Status: Acute Qualifiers: Cardiomyopathy type: ischemic Qualified Code(s): I25.5 - Ischemic cardiomyopathy (3) CAD (coronary artery disease) Code(s): I25.10 - ATHSCL HEART DISEASE OF [place] CORONARY ARTERY W/O ANG PCTRS Status: Chronic Qualifiers: Coronary Disease-Associated Artery/Lesion type: bypass graft [place] vs. transplanted heart: [place] heart Associated angina: without angina Qualified Code(s): I25.810 - Atherosclerosis of coronary artery bypass graft(s) without angina pectoris (4) Sepsis Code(s): A41.9 - SEPSIS, UNSPECIFIED ORGANISM Status: Acute Qualifiers: Sepsis type: sepsis due to unspecified organism Sepsis acute organ dysfunction status: without acute organ dysfunction Qualified Code(s): A41.9 - Sepsis, unspecified organism (5) Diabetes mellitus type 2 in nonobese Code(s): E11.9 - TYPE 2 DIABETES MELLITUS WITHOUT COMPLICATIONS Status: Chronic (6) HTN (hypertension) Code(s): I10 - ESSENTIAL (PRIMARY) HYPERTENSION Status: Chronic Qualifiers: Hypertension type: essential hypertension Qualified Code(s): I10 - Essential (primary) hypertension (7) Peripheral vascular disease Code(s): I73.9 - PERIPHERAL VASCULAR DISEASE, UNSPECIFIED Status: Chronic - Plan is on ceftriaxone and flagyl till mar 01, has PICC line awaiting placement wound care to left foot per gen surg adv, is s/p left fifth ray amp on 01/31 to wear barney hose on right LE for edema has severe pvd for med mgmt recent ef of 20%, might need outpt cath once he gets better functionally continue asp, plavix, lipitor, toprol xl, lisinopril, lantus, lasix, cymbalta hemostable
[2020-02-02] MEDS: Insulin Glargine 10 UNITS in Pre-Filled Syringe 1 EACH SC SCH (20:38)
[2020-02-02] MEDS: traMADol HCl 50 MG TAB PO PRN (20:39)
[2020-02-02] MEDS: Atorvastatin Calcium 40 MG TAB PO SCH (20:39)
[2020-02-02] MEDS: cefTRIAXone\\ROCEPHIN 2 GM in Sodium Chloride 0.9% 100 ML IVPB SCH (20:42)
[2020-02-02] MEDS: Morphine 2 MG/ML VIAL SLOW IVP PRN (21:59)
[2020-02-03] MEDS: Morphine 2 MG/ML VIAL SLOW IVP PRN ×4 (02:14→15:31)
[2020-02-03] MEDS: HumaLOG 300 UNITS/3 ML VIAL SC PRN ×3 (06:01→21:51)
[2020-02-03] MEDS: DULoxetine 30 MG CAP PO SCH (09:53)
[2020-02-03] MEDS: metroNIDAZOLE 250 MG TAB PO SCH ×3 (09:53→21:52)
[2020-02-03] MEDS: Furosemide 40 MG TAB PO SCH (09:53)
[2020-02-03] MEDS: Saccharomyces boulardii 250 MG CAP PO SCH (09:53)
[2020-02-03] MEDS: Heparin 5,000 UNITS/ML VIAL SC SCH ×2 (09:53→21:52)
[2020-02-03] MEDS: guaiFENesin ER 600 MG TAB PO SCH ×2 (09:53→21:52)
[2020-02-03] MEDS: Aspirin 81 mg Enteric Coated Tablet PO SCH (09:53)
[2020-02-03] MEDS: Clopidogrel Bisulfate 75 MG TAB PO SCH (09:53)
[2020-02-03] MEDS: Lisinopril 2.5 MG TAB PO SCH (09:56)
--- NOTE | 2020-02-03 13:30 | PDOC.HOSPP ---
- Subjective Encounter Date: 02/03/20 Encounter Time: 11:15 Subjective: feels better, no new complaints is ambulating in room with surgical boot - Objective Vital Signs & Weight: Vital Signs (12 hours) Temp Pulse Resp BP BP Pulse Ox 02/03/20 09:56 76 108/65 02/03/20 08:05 98.3 F 76 24 H 108/65 95 02/03/20 05:00 98.2 F 79 16 133/76 93 L Weight Admit Weight 175 lb 0.752 oz Weight 161 lb I&O: 02/02/20 02/03/20 02/04/20 06:59 06:59 06:59 Intake Total 1325 900 Output Total 1100 1125 Balance 225 -225 Result Diagrams: 01/29/20 06:34 01/29/20 06:34 Additional Labs: Accuchecks 02/03/20 02/03/20 02/02/20 11:00 05:56 20:27 POC Glucose 267 H 244 H 339 H 02/02/20 15:02 POC Glucose 213 H Hospitalist ROS - Medication Medications: Active Medications Generic Name Dose Route Start Last Admin Trade Name Freq PRN Reason Stop Dose Admin Acetaminophen 650 mg 01/18/20 15:03 02/01/20 10:45 Acetaminophen 325 Mg Tab PO 650 mg Q6H PRN Administration Mild Pain (1-3) Aspirin 81 mg 01/20/20 09:00 02/03/20 09:53 Aspirin 81 Mg Enteric Coated Tablet PO 81 mg DAILY SELENA Administration Atorvastatin Calcium 40 mg 01/19/20 21:00 02/02/20 20:39 Atorvastatin Calcium 40 Mg Tab PO 40 mg HS SELENA Administration Benzonatate 100 mg 01/23/20 11:27 01/30/20 04:55 Benzonatate 100 Mg Cap PO 100 mg TIDPRN PRN Administration Cough Clopidogrel Bisulfate 75 mg 01/19/20 09:00 02/03/20 09:53 Clopidogrel Bisulfate 75 Mg Tab PO 75 mg DAILY SELENA Administration Dextrose/Water 25 gm 01/18/20 16:27 01/19/20 05:38 Dextrose 50% Abboject 50 Ml Syringe SLOW IVP 25 gm PRN PRN Administration Hypoglycemia Duloxetine HCl 30 mg 01/19/20 09:00 02/03/20 09:53 Duloxetine 30 Mg Cap PO 30 mg DAILY SELENA Administration Furosemide 40 mg 01/19/20 09:00 02/03/20 09:53 Furosemide 40 Mg Tab PO 40 mg DAILY SELENA Administration Guaifenesin 600 mg 01/30/20 21:00 02/03/20 09:53 Guaifenesin Er 600 Mg Tab PO 600 mg Q12HR SELENA Administration Guaifenesin 200 mg 01/30/20 11:46 01/30/20 17:17 Diabetic Tussin 200 Mg/10 Ml Udcup PO 200 mg Q4H PRN Administration Cough Heparin Sodium (Porcine) 5,000 units 01/20/20 21:00 02/03/20 09:53 Heparin 5,000 Units/Ml Vial SC 5,000 units BID SELENA Administration Ceftriaxone Sodium 2 gm/ 100 mls @ 200 mls/hr 01/24/20 20:00 02/02/20 20:42 Sodium Chloride IVPB 100 mls Q24HR SELENA Administration Insulin Glargine 10 units/ 0.1 mls @ 0 mls/hr 02/01/20 21:00 02/02/20 20:38 Miscellaneous Medication SC 0.1 mls HS SELENA Administration Insulin Human Lispro 0 units 02/01/20 15:00 02/03/20 11:41 Humalog 300 Units/3 Ml Vial SC 6 unit .MODERATE SLIDING SC PRN Administration Moderate Correctional Scale Lisinopril 2.5 mg 01/19/20 09:00 02/03/20 09:56 Lisinopril 2.5 Mg Tab PO 2.5 mg DAILY SELENA Administration Metoprolol Succinate 50 mg 01/21/20 09:00 02/03/20 09:53 Metoprolol Succinate Xl 50 Mg Tab PO 50 mg DAILY SELENA Administration Metronidazole 250 mg 01/20/20 21:00 02/03/20 09:53 Metronidazole 250 Mg Tab PO 250 mg TID SELENA Administration Morphine Sulfate 2 mg 02/02/20 21:39 02/03/20 09:56 Morphine 2 Mg/Ml Vial SLOW IVP 2 mg Q4H PRN Administration Severe Pain (7-10) Ondansetron HCl 4 mg 01/19/20 12:35 01/31/20 23:56 Ondansetron Pf 4 Mg/2 Ml Vial IVP 4 mg Q6H PRN Administration Nausea/Vomiting Pantoprazole Sodium 40 mg 01/19/20 09:00 02/03/20 09:53 Pantoprazole 40 Mg Tab PO 40 mg DAILY SELENA Administration Polyethylene Glycol 17 gm 01/22/20 20:18 01/25/20 08:17 Polyethylene Glycol 3350 17 Gm Packet PO 17 gm DAILYPRN PRN Administration Constipation Saccharomyces Boulardii 250 mg 01/27/20 09:00 02/03/20 09:53 Saccharomyces Boulardii 250 Mg Cap PO 250 mg DAILY SELENA Administration Sodium Chloride 10 ml 01/24/20 21:00 02/03/20 09:56 Flush - Normal Saline 10 Ml Syringe IVF 10 ml Q12HR SELENA Administration Tramadol HCl 50 mg 01/30/20 15:15 02/02/20 20:39 Tramadol Hcl 50 Mg Tab PO 50 mg Q6H PRN Administration Severe Pain (7-10) - Exam General Appearance: awake alert Eye: PERRL, anicteric sclera ENT: no oropharyngeal lesions, moist mucosa Neck: supple, no JVD Heart: RRR, no murmur Respiratory: no wheezes, no rales Gastrointestinal: soft, non-tender, non-distended, normal bowel sounds Extremities: no cyanosis, no edema Neurological: cranial nerve grossly intact, no focal deficits Psychiatric: A&O x 3 Hosp A/P (1) Diabetic foot ulcer Code(s): E11.621 - TYPE 2 DIABETES MELLITUS WITH FOOT ULCER; L97.509 - NON- PRESSURE CHRONIC ULCER OTH PRT UNSP FOOT W UNSP SEVERITY Status: Acute Qualifiers: Diabetic foot ulcer location: toe Diabetes mellitus type: type 2 Laterality: left Non-pressure ulcer stage: unspecified non-pressure ulcer stage Qualified Code(s): E11.621 - Type 2 diabetes mellitus with foot ulcer; L97.529 - Non-pressure chronic ulcer of other part of left foot with unspecified severity (2) Cardiomyopathy Code(s): I42.9 - CARDIOMYOPATHY, UNSPECIFIED Status: Acute Qualifiers: Cardiomyopathy type: ischemic Qualified Code(s): I25.5 - Ischemic cardiomyopathy (3) CAD (coronary artery disease) Code(s): I25.10 - ATHSCL HEART DISEASE OF [place] CORONARY ARTERY W/O ANG PCTRS Status: Chronic Qualifiers: Coronary Disease-Associated Artery/Lesion type: bypass graft [place] vs. transplanted heart: [place] heart Associated angina: without angina Qualified Code(s): I25.810 - Atherosclerosis of coronary artery bypass graft(s) without angina pectoris (4) Sepsis Code(s): A41.9 - SEPSIS, UNSPECIFIED ORGANISM Status: Acute Qualifiers: Sepsis type: sepsis due to unspecified organism Sepsis acute organ dysfunction status: without acute organ dysfunction Qualified Code(s): A41.9 - Sepsis, unspecified organism (5) Diabetes mellitus type 2 in nonobese Code(s): E11.9 - TYPE 2 DIABETES MELLITUS WITHOUT COMPLICATIONS Status: Chronic (6) HTN (hypertension) Code(s): I10 - ESSENTIAL (PRIMARY) HYPERTENSION Status: Chronic Qualifiers: Hypertension type: essential hypertension Qualified Code(s): I10 - Essential (primary) hypertension (7) Peripheral vascular disease Code(s): I73.9 - PERIPHERAL VASCULAR DISEASE, UNSPECIFIED Status: Chronic - Plan is on ceftriaxone and flagyl till mar 01, has PICC line awaiting placement, may dc if ready. wound care to left foot per gen surg adv, is s/p left fifth ray amp on 01/31 to wear barney hose on right LE for edema has severe pvd for med mgmt recent ef of 20%, might need outpt cath once he gets better functionally continue asp, plavix, lipitor, toprol xl, lisinopril, lantus, lasix, cymbalta hemostable
[2020-02-03] MEDS: Ondansetron PF 4 MG/2 ML Vial IVP PRN (17:48)
[2020-02-03 18:03] LABS: #Basophils 0.1 thou/uL (0.0-0.2); #Eosinphils 0.5 thou/uL (0.0-0.7); #Lymphocytes 3.1 thou/uL (1.20-3.40); #Neutrophils 13.2 thou/uL (1.40-6.50); %Basophils 0.5 % (0.0-1.0); %Eosinophils 2.8 % (0.0-10.0); %Lymphocytes 17.5 % (21.0-51.0); %Monocytes 5.8 % (0.0-10.0); %Neutrophils 73.4 % (42.0-75.0); Hemoglobin 11.6 g/dL (14.0-18.0); Mean Corpuscular HGB CONC 30.7 g/dL (32.0-36.0); Mean Corpuscular Hemoglobin 27.1 pg (27.0-31.0); Mean Corpuscular Volume 88.4 fL (78.0-98.0); Mean Platelet Volume 8.5 fL (7.4-10.4); Platelet Count 476 thou/uL (130-400); RBC Distribution Width 15.2 % (11.5-14.5); Red Blood Cell (RBC) Count 4.29 mill/uL (4.70-6.10); White Blood Cell (WBC) Count 17.9 thou/uL (4.8-10.8)
[2020-02-03 18:10] LABS: INR-International Normal Ratio 1.2; PTT 33.6 sec (22.9-36.1)
[2020-02-03] MEDS ORDERED: Lidocaine 1% (PF) 30 ML VIAL ONE (18:15)
--- NOTE | 2020-02-03 18:16 | CT ---
EXAM: CT brain without contrast HISTORY: Code [place] and fall with head trauma after hitting the back of the head COMPARISON: 04/19/2014 TECHNIQUE: Multiple contiguous axial images were obtained and a CT of the brain without contrast. FINDINGS: Cerebral atrophy is seen. The brain is normal in morphology and attenuation without focal l esions or confluent areas of infarction. There is no evidence of intracranial hemorrhage or extra-axial fluid collection. The lateral ventricles are more prominent than the prior examination an d mild hydrocephalus cannot be excluded. Mild posterior scalp soft tissue swelling is seen. The underlying calvarium is unremarkable. The visu alized paranasal sinuses and mastoid air cells are well aerated. IMPRESSION: 1. No evidence of acute intracranial abnormality 2. Possible mild hydrocephalus
[2020-02-03 18:25] LABS: Anion Gap 17 mmol/L (10-20); BUN (Urea Nitrogen) 25 mg/dL (8.4-25.7); Calc. Creatinine Clearance 45 mL/min (70-130); Calcium 8.6 mg/dL (7.8-10.44); Carbon Dioxide 29 mmol/L (23-31); Chloride 95 mmol/L (98-107); Estimated GFR-MDRD 47; Glucose 299 mg/dL (83-110); Potassium 4.4 mmol/L (3.5-5.1); Sodium 137 mmol/L (136-145)
[2020-02-03] MEDS ORDERED: Promethazine 25 MG TAB PO PRN (19:46)
[2020-02-03] MEDS: traMADol HCl 50 MG TAB PO PRN (19:56)
[2020-02-03] MEDS: cefTRIAXone\\ROCEPHIN 2 GM in Sodium Chloride 0.9% 100 ML IVPB SCH (19:57)
[2020-02-03] MEDS: Insulin Glargine 10 UNITS in Pre-Filled Syringe 1 EACH SC SCH (21:50)
[2020-02-03] MEDS: Atorvastatin Calcium 40 MG TAB PO SCH (21:51)
--- NOTE | 2020-02-03 23:44 | OP ---
DATE OF PROCEDURE: 02/03/2020 INDICATION: Fall with head laceration. PROCEDURE PERFORMED: Simple laceration repair of the scalp. CONSENT: Verbal. DESCRIPTION OF PROCEDURE: The patient was identified, hand hygiene was completed. The scalp laceration measuring approximately 6 cm linear at the occiput was identified. Local infiltration 1% lidocaine without epinephrine with good anesthesia, total of approximately 3 mL was instilled. Next jet irrigation with 750 mL of sterile saline to clean out the wound. There was no foreign bodies, fully able to evaluate the entirety of the wound. The skin was then closed with 8 buzz with good margin. The patient tolerated procedure well. COMPLICATIONS: None. BLOOD LOSS: None. Dressing was applied. Advised to have his buzz removed in 10 days. Hospitalist team can follow for signs of infection and staple removal. Please contact us for any further needs for Mr. Leigh. Appreciate the opportunity to work with this patient. Job ID: [id number]
[2020-02-04 05:29] LABS: #Eosinphils 0.1 thou/uL (0.0-0.7); #Lymphocytes 1.4 thou/uL (1.20-3.40); #Monocytes 0.8 thou/uL (0.11-0.59); #Neutrophils 10.9 thou/uL (1.40-6.50); %Basophils 0.2 % (0.0-1.0); %Eosinophils 0.8 % (0.0-10.0); %Lymphocytes 10.2 % (21.0-51.0); %Monocytes 5.9 % (0.0-10.0); %Neutrophils 82.8 % (42.0-75.0); Hemoglobin 10.5 g/dL (14.0-18.0); Mean Corpuscular HGB CONC 31.4 g/dL (32.0-36.0); Mean Corpuscular Hemoglobin 27.3 pg (27.0-31.0); Mean Platelet Volume 8.4 fL (7.4-10.4); Platelet Count 394 thou/uL (130-400); Red Blood Cell (RBC) Count 3.86 mill/uL (4.70-6.10); White Blood Cell (WBC) Count 13.2 thou/uL (4.8-10.8)
[2020-02-04 05:50] LABS: ALT (SGPT) 12 U/L (8-55); AST (SGOT) 21 U/L (5-34); Albumin 2.9 g/dL (3.4-4.8); Alkaline Phosphatase 76 U/L (40-110); Anion Gap 12 mmol/L (10-20); BUN (Urea Nitrogen) 25 mg/dL (8.4-25.7); Bilirubin, Total 0.3 mg/dL (0.2-1.2); Calc. Creatinine Clearance 50 mL/min (70-130); Calcium 8.4 mg/dL (7.8-10.44); Carbon Dioxide 34 mmol/L (23-31); Chloride 96 mmol/L (98-107); Estimated GFR-MDRD 54; Globulin 3.4 g/dL (2.4-3.5); Glucose 213 mg/dL (83-110); Potassium 4.4 mmol/L (3.5-5.1); Protein, Total 6.3 g/dL (5.8-8.1); Sodium 138 mmol/L (136-145)
[2020-02-04] MEDS ORDERED: Diabetic Tussin DM 5 ML UDCUP PO PRN (06:10)
[2020-02-04] MEDS: HumaLOG 300 UNITS/3 ML VIAL SC PRN ×2 (06:24→14:38)
[2020-02-04] MEDS: Benzonatate 100 MG CAP PO PRN (06:25)
[2020-02-04] MEDS ORDERED: Scopolamine 1.5 mg/72 hour Patch TOP SCH (08:00)
[2020-02-04] MEDS: Clopidogrel Bisulfate 75 MG TAB PO SCH (08:20)
[2020-02-04] MEDS: Lisinopril 2.5 MG TAB PO SCH (08:20)
[2020-02-04] MEDS: guaiFENesin ER 600 MG TAB PO SCH (08:20)
[2020-02-04] MEDS: Furosemide 40 MG TAB PO SCH (08:21)
[2020-02-04] MEDS: Acetaminophen 325 MG TAB PO PRN ×2 (08:21→14:24)
[2020-02-04] MEDS: DULoxetine 30 MG CAP PO SCH (08:21)
[2020-02-04] MEDS: metroNIDAZOLE 250 MG TAB PO SCH (08:21)
[2020-02-04] MEDS: Aspirin 81 mg Enteric Coated Tablet PO SCH (08:22)
[2020-02-04] MEDS: Heparin 5,000 UNITS/ML VIAL SC SCH (08:22)
[2020-02-04] MEDS: Saccharomyces boulardii 250 MG CAP PO SCH (08:22)
[2020-02-04] MEDS ORDERED: Insulin Glargine 10 UNITS in Pre-Filled Syringe SC SCH (09:00)
--- NOTE | 2020-02-04 13:28 | PDOC.HOSPP ---
- Subjective Encounter Date: 02/04/20 Encounter Time: 10:00 Subjective: no sob or chest pain has mild pain in his foot - Objective Vital Signs & Weight: Vital Signs (12 hours) Temp Pulse Resp BP Pulse Ox 02/04/20 11:26 97.7 F 64 18 100/61 94 L 02/04/20 07:44 94 L 02/04/20 07:25 97.7 F 70 18 105/68 95 02/04/20 03:21 98.3 F 69 18 120/76 92 L Weight Admit Weight 175 lb 0.752 oz Weight 161 lb I&O: 02/03/20 02/04/20 02/05/20 06:59 06:59 06:59 Intake Total 900 1685 610 Output Total 1125 1600 Balance -225 85 610 Result Diagrams: 02/04/20 05:04 02/04/20 05:04 Additional Labs: Accuchecks 02/04/20 02/03/20 02/03/20 05:28 20:50 16:11 POC Glucose 189 H 329 H 213 H Hospitalist ROS - Medication Medications: Active Medications Generic Name Dose Route Start Last Admin Trade Name Freq PRN Reason Stop Dose Admin Acetaminophen 650 mg 01/18/20 15:03 02/04/20 08:21 Acetaminophen 325 Mg Tab PO 650 mg Q6H PRN Administration Mild Pain (1-3) Aspirin 81 mg 01/20/20 09:00 02/04/20 08:22 Aspirin 81 Mg Enteric Coated Tablet PO 81 mg DAILY SELENA Administration Atorvastatin Calcium 40 mg 01/19/20 21:00 02/03/20 21:51 Atorvastatin Calcium 40 Mg Tab PO 40 mg HS SELENA Administration Benzonatate 100 mg 01/23/20 11:27 02/04/20 06:25 Benzonatate 100 Mg Cap PO 100 mg TIDPRN PRN Administration Cough Clopidogrel Bisulfate 75 mg 01/19/20 09:00 02/04/20 08:20 Clopidogrel Bisulfate 75 Mg Tab PO 75 mg DAILY SELENA Administration Dextrose/Water 25 gm 01/18/20 16:27 01/19/20 05:38 Dextrose 50% Abboject 50 Ml Syringe SLOW IVP 25 gm PRN PRN Administration Hypoglycemia Duloxetine HCl 30 mg 01/19/20 09:00 02/04/20 08:21 Duloxetine 30 Mg Cap PO 30 mg DAILY SELENA Administration Guaifenesin 600 mg 01/30/20 21:00 02/04/20 08:20 Guaifenesin Er 600 Mg Tab PO 600 mg Q12HR SELENA Administration Guaifenesin 200 mg 01/30/20 11:46 01/30/20 17:17 Diabetic Tussin 200 Mg/10 Ml Udcup PO 200 mg Q4H PRN Administration Cough Heparin Sodium (Porcine) 5,000 units 01/20/20 21:00 02/04/20 08:22 Heparin 5,000 Units/Ml Vial SC 5,000 units BID SELENA Administration Insulin Glargine 10 units/ 0.1 mls @ 0 mls/hr 02/01/20 21:00 02/03/20 21:50 Miscellaneous Medication SC 0.1 mls HS SELENA Administration Insulin Glargine 10 units/ 0.1 mls @ 0 mls/hr 02/04/20 09:00 02/04/20 08:19 Miscellaneous Medication SC 0.1 mls QAM SELENA Administration Insulin Human Lispro 0 units 02/01/20 15:00 02/04/20 06:24 Humalog 300 Units/3 Ml Vial SC 2 unit .MODERATE SLIDING SC PRN Administration Moderate Correctional Scale Lisinopril 2.5 mg 01/19/20 09:00 02/04/20 08:20 Lisinopril 2.5 Mg Tab PO 2.5 mg DAILY SELENA Administration Morphine Sulfate 2 mg 02/02/20 21:39 02/03/20 15:31 Morphine 2 Mg/Ml Vial SLOW IVP 2 mg Q4H PRN Administration Severe Pain (7-10) Ondansetron HCl 4 mg 01/19/20 12:35 02/03/20 17:48 Ondansetron Pf 4 Mg/2 Ml Vial IVP 4 mg Q6H PRN Administration Nausea/Vomiting Pantoprazole Sodium 40 mg 01/19/20 09:00 02/04/20 08:21 Pantoprazole 40 Mg Tab PO 40 mg DAILY SELENA Administration Polyethylene Glycol 17 gm 01/22/20 20:18 01/25/20 08:17 Polyethylene Glycol 3350 17 Gm Packet PO 17 gm DAILYPRN PRN Administration Constipation Promethazine HCl 25 mg 02/03/20 19:46 02/03/20 21:55 Promethazine 25 Mg Tab PO 25 mg Q6H PRN Administration Nausea/Vomiting Saccharomyces Boulardii 250 mg 01/27/20 09:00 02/04/20 08:22 Saccharomyces Boulardii 250 Mg Cap PO 250 mg DAILY SELENA Administration Sodium Chloride 10 ml 01/24/20 21:00 02/04/20 08:22 Flush - Normal Saline 10 Ml Syringe IVF 10 ml Q12HR SELENA Administration Tramadol HCl 50 mg 01/30/20 15:15 02/03/20 19:56 Tramadol Hcl 50 Mg Tab PO 50 mg Q6H PRN Administration Severe Pain (7-10) - Exam General Appearance: awake alert Eye: PERRL, anicteric sclera ENT: no oropharyngeal lesions, moist mucosa ENT - other findings: scalp suture is clean with no bleed or discharge Neck: supple, no JVD Heart: RRR, no murmur Respiratory: no wheezes, no rales Gastrointestinal: soft, non-tender, non-distended, normal bowel sounds Extremities: no cyanosis, no edema Neurological: cranial nerve grossly intact, no focal deficits Psychiatric: normal affect, A&O x 3 Hosp A/P (1) Diabetic foot ulcer Code(s): E11.621 - TYPE 2 DIABETES MELLITUS WITH FOOT ULCER; L97.509 - NON- PRESSURE CHRONIC ULCER OTH PRT UNSP FOOT W UNSP SEVERITY Status: Acute Qualifiers: Diabetic foot ulcer location: toe Diabetes mellitus type: type 2 Laterality: left Non-pressure ulcer stage: unspecified non-pressure ulcer stage Qualified Code(s): E11.621 - Type 2 diabetes mellitus with foot ulcer; L97.529 - Non-pressure chronic ulcer of other part of left foot with unspecified severity (2) Cardiomyopathy Code(s): I42.9 - CARDIOMYOPATHY, UNSPECIFIED Status: Acute Qualifiers: Cardiomyopathy type: ischemic Qualified Code(s): I25.5 - Ischemic cardiomyopathy (3) CAD (coronary artery disease) Code(s): I25.10 - ATHSCL HEART DISEASE OF [place] CORONARY ARTERY W/O ANG PCTRS Status: Chronic Qualifiers: Coronary Disease-Associated Artery/Lesion type: bypass graft [place] vs. transplanted heart: [place] heart Associated angina: without angina Qualified Code(s): I25.810 - Atherosclerosis of coronary artery bypass graft(s) without angina pectoris (4) Sepsis Code(s): A41.9 - SEPSIS, UNSPECIFIED ORGANISM Status: Acute Qualifiers: Sepsis type: sepsis due to unspecified organism Sepsis acute organ dysfunction status: without acute organ dysfunction Qualified Code(s): A41.9 - Sepsis, unspecified organism (5) Diabetes mellitus type 2 in nonobese Code(s): E11.9 - TYPE 2 DIABETES MELLITUS WITHOUT COMPLICATIONS Status: Chroni c (6) HTN (hypertension) Code(s): I10 - ESSENTIAL (PRIMARY) HYPERTENSION Status: Chronic Qualifiers: Hypertension type: essential hypertension Qualified Code(s): I10 - Esse ntial (primary) hypertension (7) Peripheral vascular disease Code(s): I73.9 - PERIPHERAL VASCULAR DISEASE, UNSPECIFIED Status: Chronic - Plan is on ceftriaxone and flagyl till mar 01, has PICC line may dc to [facility] today had a fall yesterday on the floor with laceration of scalp and buzz placed, ct brain is -ve. wound care to left foot per gen surg adv, is s/p left fifth ray amp on 01/31 to wear barney hose on right LE for edema has severe pvd for med mgmt recent ef of 20%, might need outpt cath once he gets better functionally continue asp, plavix, lipitor, toprol xl, lisinopril, lantus, lasix, cymbalta hemostable
[2020-02-04] MEDS: traMADol HCl 50 MG TAB PO PRN (14:23)
--- NOTE | 2020-02-04 14:51 | PRG ---
DATE OF SERVICE: 02/04/2020 SUBJECTIVE: Mr. Leigh is well with mild pain. No headaches. No diarrhea. No abdominal pain. OBJECTIVE: VITAL SIGNS: Essentially normal. LUNGS: Symmetric clear breath sounds. ABDOMEN: Soft, not distended. No bladder distention. HEART: S1 and S2. Regular rate. LABORATORY DATA: White cell count 13.2, hemoglobin 10.5, platelets 394, 82% neutrophils. Creatinine 1.3. Liver profile normal. Microbiology with group B strep yeast species and anaerobic gram-positive cocci. The patient had a laceration repair of the scalp after a fall and this occurred yesterday. ASSESSMENT AND DISCUSSION: Ischemic cardiomyopathy, peripheral vascular disease with prior revascularization, ulceration and necrosis of fifth metatarsal skin site on left side, poor vascular supply to the lower extremities and without options for further intervention to improve vascular supply at this point in time. The patient had amputation of the fifth ray and is going to be discharged on Rocephin and Flagyl for protracted period of time. Job ID: [id number]
[2020-02-04 16:47] VITALS: BP 116/68; TEMP 97.3
--- NOTE | 2020-02-04 17:24 | DIS ---
DATE OF ADMISSION: 01/18/2020 DATE OF DISCHARGE: 02/04/2020 DISCHARGE DISPOSITION: To [facility]. PRIMARY DISCHARGE DIAGNOSES: 1. Diabetic foot ulcer with severe peripheral vascular disease, status post amputation of left fifth toe done on 02/01/2020. 2. Severe peripheral vascular disease. 3. Ischemic cardiomyopathy. 4. Coronary artery disease. 5. Sepsis due to diabetic ulcer, resolved. 6. Ischemic cardiomyopathy. 7. Coronary artery disease. 8. Diabetes mellitus, type 2. 9. Hypertension. PROCEDURES DONE DURING HOSPITALIZATION: Left foot three-view standard x-ray done showed subcutaneous soft tissue swelling and emphysema lateral to left foot at the level of fifth metatarsal. No underlying osseous destruction was seen. Arterial Doppler of lower extremity done showed right lower extremity femoral to popliteal bypass graft with monophasic waveforms seen throughout the bypass graft. The peak systolic velocity becomes dampened in the proximal aspect of the graft with greater decreased systolic velocity in the mid and distal graft, significantly elevated peak systolic velocity with monophasic waveform and spectral broadening in the proximal right lower popliteal artery suggesting significant stenosis at this level. Aorta with runoff CT angiogram done on 01/20/2020 showed occlusion of the right distal femoral, popliteal bypass graft and popliteal artery with minimal opacification of the right peroneal artery on the right. The right anterior tibial and posterior tibial arteries do not appear opacified. High-grade left arterial popliteal stenosis with 3-vessel runoff on the left on the more delayed images. Echo with 2D Doppler done showed ejection fraction of 20% to 25%. Left atrium was moderately dilated. LV size was moderately increased. Inferior wall was akinetic. Diastolic dysfunction was seen. [id number] tricuspid regurgitation. RV systolic pressures were 73 mmHg with severe pulmonary hypertension on the echo. Patient has had debridement of left foot ulcer and ray amputation of the left fifth toe done by Dr. Poe on 01/22/2020. He has had a PICC line placed on 01/25/2020. Patient had a fall on 02/03/2020 with laceration of scalp and has had buzz placed over the occiput scalp area. Wound cultures have grown Streptococcus agalactiae yeast species and anaerobic gram-positive cocci. Blood cultures x2, no growth. Had a white count of 25 on the day of admission, discharge numbers of 13; H and H 10 and 33, with platelet count 394. BUN and creatinine 25 and 1.3 on the day of discharge. Albumin 2.9. HbA1c was greater than 14 on arrival. BUN and creatinine were 35 and 1.6 on the day of admission. COVID-19 PCR was not detected on 01/18/2020. DISCHARGE MEDICATION: 1. Plavix 75 mg p.o. daily. 2. Duloxetine 30 mg p.o. daily. 3. Protonix 40 mg p.o. daily. 4. Aspirin 81 mg p.o. daily. 5. Flagyl 250 mg p.o. 3 times daily until March 01. 6. Ceftriaxone 2 g daily until March 01. 7. Lipitor 40 mg p.o. at bedtime. 8. Lantus 10 units subcu at bedtime. 9. Florastor 250 mg p.o. daily. 10. Mucinex 600 mg p.o. twice daily. 11. Toprol-XL 25 mg daily. 12. Lisinopril 2.5 mg p.o. daily. ALLERGIES: TO CARVEDILOL. DISCHARGE PLAN: Patient is to follow up with Dr. Poe in 10 days, Dr. 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 BRIEF COURSE DURING HOSPITALIZATION: Patient initially came to ER on the with left foot ulcer. He has had white count of more than 25 and was septic. He was placed on broad-spectrum IV antibiotics and has had debridement and amputation done for left fifth toe (ray amputation) by Dr. Poe. He has had history of prior femoral-popliteal, and a CT angio of aorta with runoff done confirmed severe peripheral vascular disease. Patient has had consultation with Dr. Garcia and the patient has no surgical options left, except for amputation. His echo revealed ejection fraction of around 20% to 25% with elevated RV systolic pressures suggestive of severe pulmonary hypertension as well. In view of multiple medical issues and deconditioning, he is being discharged to [facility] for further recuperation prior to going home. Patient had an accidental fall on the and had laceration of his occipital scalp area and has had buzz placed on the . This needs to be removed in 8 to 9 days at the longterm by primary care physician. He is otherwise hemodynamically stable and will be shortly discharged. Please see a [id number] documentation for the day of discharge on [employer]. He needs to continue ceftriaxone and Flagyl until March 01. Weekly CBC, CMP, and CRP levels along with sed rate needs to be done and faxed to Dr. Bates' office. He needs to follow up with Dr. Bates in 10 days to see for wound healing versus progression. A total of 35 minutes was spent on discharge plan. Job ID: [id number] MTDD
== END 2020-02-04 16:15 | DRG 239 ==
LOC: ERS 10:55 → 3SE 15:05 → 2NO 01-19 14:15 → SURG B 01-24 14:12 → SURG A 01-30 14:47 → SURG B 01-30 14:54
PROVIDERS: ADMIT Student in an Organized Health Care Education/Training Program; ATTEND Internal Medicine
PROC: 0Y6N0ZF Detachment at Left Foot, Partial 5th Ray, Open Approach (ICD-10-PCS; principal; 2020-01-22)
PROC: 02HV33Z Insertion of Infusion Device into Superior Vena Cava, Percutaneous Approach (ICD-10-PCS; 2020-01-25)
PROC: B548ZZA Ultrasonography of Superior Vena Cava, Guidance (ICD-10-PCS; 2020-01-25)
PROC: 0HQ0XZZ Repair Scalp Skin, External Approach (ICD-10-PCS; 2020-02-03)
PROC: 3E0T3BZ Introduction of Anesthetic Agent into Peripheral Nerves and Plexi, Percutaneous Approach (ICD-10-PCS; 2020-02-03)
DX: E11.52 Type 2 diabetes mellitus with diabetic peripheral angiopathy with gangrene (principal); A41.9 Sepsis, unspecified organism; J96.01 Acute respiratory failure with hypoxia; I13.0 Hypertensive heart and chronic kidney disease with heart failure and stage 1 through stage 4 chronic kidney disease, or unspecified chronic kidney disease; E87.1 Hypo-osmolality and hyponatremia; N17.9 Acute kidney failure, unspecified; L03.116 Cellulitis of left lower limb; I96 Gangrene, not elsewhere classified; I50.42 Chronic combined systolic (congestive) and diastolic (congestive) heart failure; M86.8X7 Other osteomyelitis, ankle and foot; Z20.828 Contact with and (suspected) exposure to other viral communicable diseases; S01.01XA Laceration without foreign body of scalp, initial encounter; W19.XXXA Unspecified fall, initial encounter; E11.621 Type 2 diabetes mellitus with foot ulcer; L97.529 Non-pressure chronic ulcer of other part of left foot with unspecified severity; I25.5 Ischemic cardiomyopathy; I25.10 Atherosclerotic heart disease of native coronary artery without angina pectoris; E11.22 Type 2 diabetes mellitus with diabetic chronic kidney disease; N18.30 Chronic kidney disease, stage 3 unspecified; E11.65 Type 2 diabetes mellitus with hyperglycemia; J44.9 Chronic obstructive pulmonary disease, unspecified; E78.5 Hyperlipidemia, unspecified; E78.00 Pure hypercholesterolemia, unspecified; F41.9 Anxiety disorder, unspecified; F17.210 Nicotine dependence, cigarettes, uncomplicated; M06.9 Rheumatoid arthritis, unspecified; D53.9 Nutritional anemia, unspecified; D63.1 Anemia in chronic kidney disease; E11.69 Type 2 diabetes mellitus with other specified complication; E11.649 Type 2 diabetes mellitus with hypoglycemia without coma; E87.6 Hypokalemia; R00.1 Bradycardia, unspecified; R11.2 Nausea with vomiting, unspecified; K59.00 Constipation, unspecified; Z23 Encounter for immunization; Z88.8 Allergy status to other drugs, medicaments and biological substances; Z95.828 Presence of other vascular implants and grafts; I25.2 Old myocardial infarction; Z79.899 Other long term (current) drug therapy; Z79.4 Long term (current) use of insulin; Z79.02 Long term (current) use of antithrombotics/antiplatelets; Z95.1 Presence of aortocoronary bypass graft; Z79.82 Long term (current) use of aspirin; Y92.230 Patient room in hospital as the place of occurrence of the external cause
CPT/HCPCS: 36415; 36416; 36569; 70450; 71045; 75635; 80048; 80053; 80202; 82553; 82565; 83036; 83605; 83735; 84100; 84484; 85025; 85610; 85730; 87040; 87070; 87077; 87205; 87635; 88305; 88311; 90471; 90662; 90732; 93005; 93010; 93306; 93923; 96365; 96367; 96375; C1751; G0008; G0009; J0692; J0696; J1644; J1815; J2001; J2250; J2270; J2370; J2405; J2543; J3010; J3370; J3490; J7050; Q0169; Q9967; U0003

== ENCOUNTER 2020-02-29 02:13 | Emergency (ER) | payer MEDICARE ==
[2020-02-29] MEDS ORDERED: Ondansetron ODT 4 MG TAB ONE (03:05)
[2020-02-29 04:18] LABS: #Lymphocytes 0.5 thou/uL (1.20-3.40); #Monocytes 0.4 thou/uL (0.11-0.59); #Neutrophils 7.2 thou/uL (1.40-6.50); %Basophils 0.2 % (0.0-1.0); %Eosinophils 0.2 % (0.0-10.0); %Lymphocytes 5.8 % (21.0-51.0); %Monocytes 4.7 % (0.0-10.0); %Neutrophils 89.2 % (42.0-75.0); Hemoglobin 11.8 g/dL (14.0-18.0); Mean Corpuscular HGB CONC 31.9 g/dL (32.0-36.0); Mean Corpuscular Hemoglobin 27.5 pg (27.0-31.0); Mean Corpuscular Volume 86.2 fL (78.0-98.0); Mean Platelet Volume 10.2 fL (7.4-10.4); Platelet Count 196 thou/uL (130-400); RBC Distribution Width 16.5 % (11.5-14.5); White Blood Cell (WBC) Count 8.1 thou/uL (4.8-10.8)
[2020-02-29 04:37] LABS: Anion Gap 17 mmol/L (10-20); BUN (Urea Nitrogen) 19 mg/dL (8.4-25.7); Calc. Creatinine Clearance 0 mL/min (70-130); Calcium 7.8 mg/dL (7.8-10.44); Carbon Dioxide 27 mmol/L (23-31); Chloride 97 mmol/L (98-107); Potassium 3.9 mmol/L (3.5-5.1); Sodium 137 mmol/L (136-145)
[2020-02-29 04:43] LABS: Glucose 55 mg/dL (83-110)
--- NOTE | 2020-02-29 08:05 | RAD ---
XR Chest 1 View Portable HISTORY: Cough COMPARISON: 01/18/2020 FINDINGS: Changes of median sternotomy are again seen. The heart size is enlarged. The aorta is tortu ous. Chronic small right pleural effusion is again noted. No pneumothoraces are identified. The left upper extremity PICC line has been placed in the interim. IMPRESSION: Stable cardiomegaly and chronic small right pleural effusion
== END 2020-02-29 10:10 ==
LOC: ERS 02:13
DX: R11.10 Vomiting, unspecified (principal); R19.7 Diarrhea, unspecified; R60.0 Localized edema; I11.0 Hypertensive heart disease with heart failure; I50.9 Heart failure, unspecified; E11.9 Type 2 diabetes mellitus without complications; E78.5 Hyperlipidemia, unspecified; R10.815 Periumbilic abdominal tenderness; E78.00 Pure hypercholesterolemia, unspecified; M06.9 Rheumatoid arthritis, unspecified; J44.9 Chronic obstructive pulmonary disease, unspecified; Z87.891 Personal history of nicotine dependence; Z79.4 Long term (current) use of insulin; Z79.899 Other long term (current) drug therapy
CPT/HCPCS: 36416; 71045; 80048; 85025; 93005; Q0162

== ENCOUNTER 2020-03-03 09:09 | Inpatient (IN) | payer MEDICARE ==
[2020-03-03 10:06] LABS: #Lymphocytes 0.7 thou/uL (1.20-3.40); #Monocytes 0.4 thou/uL (0.11-0.59); #Neutrophils 8.7 thou/uL (1.40-6.50); %Eosinophils 0.5 % (0.0-10.0); %Lymphocytes 7.2 % (21.0-51.0); %Monocytes 3.5 % (0.0-10.0); %Neutrophils 88.8 % (42.0-75.0); Hemoglobin 14.4 g/dL (14.0-18.0); Mean Corpuscular HGB CONC 30.2 g/dL (32.0-36.0); Mean Corpuscular Hemoglobin 26.1 pg (27.0-31.0); Mean Corpuscular Volume 86.4 fL (78.0-98.0); Mean Platelet Volume 11.2 fL (7.4-10.4); Platelet Count 137 thou/uL (130-400); RBC Distribution Width 16.6 % (11.5-14.5); Red Blood Cell (RBC) Count 5.52 mill/uL (4.70-6.10); White Blood Cell (WBC) Count 9.8 thou/uL (4.8-10.8)
--- NOTE | 2020-03-03 10:39 | RAD ---
XR Chest 1 View Portable History: Covid pneumonia Comparison: Radiograph February 29, 2020 Findings: Heart size is enlarged. Multiple midline sternotomy wires. Central venous catheter tip proj ects over the mid SVC. Extensive airspace opacities at the lungs have progressed. No pneumothorax. No pneumomediastinum. Impression: Worsening lung aeration.
--- NOTE | 2020-03-03 10:39 | ULT ---
EXAM: Doppler arterial evaluation of the left upper extremity DATE: 03/03/2020 9:40 AM INDICATION: History of Covid positive patient with a reported left cold hand for 2 weeks COMPARISON: None. FINDING: The arterial structures of the left upper extremity were interrogated with grayscale, color Doppler and spectral Doppler evaluation. Appropriate waveforms seen within the left common carotid artery, left subclavian artery and left axillary artery. There is a appropriate triphasic waveform wi thin the left brachial artery. There is a more biphasic waveform at the level of the left radial artery. Triphasic waveforms seen within the proximal left ulnar artery more more biphasic waveform is seen at the level of the wrist.. IMPRESSION: 1. No definite hemodynamically significant stenosis or occlusion demonstrated. 2. Findings suspicious for mild atherosclerotic disease involving the left radial and left ulnar jonathan garrick.
[2020-03-03 10:54] LABS: ALT (SGPT) 1012 U/L (8-55); AST (SGOT) 2435 U/L (5-34); Albumin 3.3 g/dL (3.4-4.8); Alkaline Phosphatase 171 U/L (40-110); Anion Gap 17 mmol/L (10-20); BUN (Urea Nitrogen) 39 mg/dL (8.4-25.7); Bilirubin, Total 1.1 mg/dL (0.2-1.2); Calc. Creatinine Clearance 0 mL/min (70-130); Calcium 7.8 mg/dL (7.8-10.44); Carbon Dioxide 32 mmol/L (23-31); Chloride 91 mmol/L (98-107); Globulin 3.6 g/dL (2.4-3.5); Potassium 3.5 mmol/L (3.5-5.1); Protein, Total 6.9 g/dL (5.8-8.1); Sodium 136 mmol/L (136-145)
[2020-03-03 11:17] LABS: Glucose 36 mg/dL (83-110)
[2020-03-03 11:34] LABS: CKMB 2.1 ng/mL (0-6.6)
[2020-03-03] MEDS ORDERED: Piperacillin/Tazobactam 3.375 GM VIAL ONE (12:05)
[2020-03-03] MEDS ORDERED: Ondansetron PF 4 MG/2 ML Vial ONE (12:05)
[2020-03-03] MEDS ORDERED: Aspirin Chewable 81 MG TAB ONE (12:05)
[2020-03-03] MEDS ORDERED: Fentanyl 100 MCG/2 ML VIAL ONE (12:05)
[2020-03-03] MEDS ORDERED: Dextrose 50% Abboject 50 ML SYRINGE ONE (12:34)
[2020-03-03] MEDS ORDERED: Fentanyl 100 MCG/2 ML VIAL SLOW IVP PRN (14:23)
[2020-03-03] MEDS ORDERED: Ondansetron ODT 4 MG TAB SL PRN (14:30)
[2020-03-03] MEDS ORDERED: Sodium Chloride 0.9% 1,000 ML IV SCH ×2 (14:30→18:00)
[2020-03-03] MEDS ORDERED: Ondansetron PF 4 MG/2 ML Vial IVP PRN (14:30)
[2020-03-03 15:49] LABS: Troponin I 0.247 ng/mL (< 0.028)
[2020-03-03 15:50] LABS: Lactic Acid 2.3 mmol/L (0.5-2.2)
[2020-03-03 17:19] LABS: ALV-art Gradient 135.105 mmHg (0-20); Actual Bicarbonate (HCO3a) 26.5 mEq/L (22-28); CO2 Tension 41.1 mmHg (35.0-45.0); Calcium, Ionized (arterial) 0.99 mmol/L (1.12-1.30); Carboxyhemoglobin (COHb) 0.7 gm% (0.0-3.0); Hemoglobin (Hb) 12.9 g/dL (14.0-18.0); O2 Tension (PaO2), arterial 70.2 mmHg (> 70.0); Potassium - ABG Lab 3.63 mmol/L (3.70-5.30); Puncture Site LBA; pH, Arterial 7.43 (7.35-7.45)
[2020-03-03] MEDS ORDERED: Piperacillin/Tazobactam 3.375 GM in Sodium Chloride 0.9% 100 ML IVPB SCH (18:00)
[2020-03-03 18:12] LABS: Troponin I 0.272 ng/mL (< 0.028)
[2020-03-03] MEDS: Acetaminophen/Codeine 30-300mg Tablet PO PRN (19:14)
--- NOTE | 2020-03-03 19:25 | PDOC.HHP ---
Hospitalist HPI - History of Present Illness History of Present Illness: ADMISSION DATE: 03/03/2020 TIME OF ASSESSMENT: 1630 PRIMARY CARE PHYSICIAN: Isaiah CHIEF COMPLAINT: Low O2 sat HPI: Patient is a 74-year-old male past medical history significant for foot cellulitis needing long-term antibiotics, Covid x1 week, CHF, diabetes type 2. He presents to the ER today from low O2 saturation from the [facility]. Patient states he has been receiving long-term antibiotics for his foot cellulitis and is scheduled to have an AKA later this month. When EMS was called patient was in the low 90s O2 saturation and was 100% on 6 L. He was given Zofran 4 mg by EMS. Blood sugar was 84 upon arrival at the senior living. Patient states he has been on oxygen at the senior living for at least a week now. ED COURSE: Vital Signs: BP: 134/73, MAP: 93, Pulse: 79, Resp: 18, Pain: 9, O2 sat: 98 on (3L Oxygen) Today in the ER they completed lab work, upper extremity ultrasound, chest x- ray, medication administration, EKG. They administered vancomycin 1900 mg IV, Zosyn 3.375 g IV, amp of D50, fentanyl 100 mcg IV, 1 L normal saline, aspirin 324 mg p.o., Zofran 4 mg IV. PAST MEDICAL HISTORY: CHF, diabetes mellitus, peripheral artery disease, hypertension PAST SURGICAL HISTORY: Arterial bypass SOCIAL HISTORY: Patient currently living in a senior living for long-term antibiotics. FAMILY HISTORY: Diabetes mellitus ALLERGIES: Carvedilol CURRENT MEDICATIONS: Protonix 40 mg daily Toprol-XL 25 mg daily Zestril 2.5 mg daily Duloxetine 30 mg daily Clopidogrel 75 mg daily Lipitor 40 mg at night Aspirin 81 mg daily Metformin 500 mg every morning Potassium 10 mEq daily Lasix 80 mg p.o. twice daily Sorbic acid 1000 mg p.o. daily Comparison 600 mg p.o. twice daily Flagyl 500 mg p.o. 3 times dailywas sent into 03/01/2020 Ceftriaxone 2 g IV every 24 hourswas set to end 03/01/2020 Lantus 40 units subcu at bedtime Hospitalist ROS - Review of Systems Constitutional: reports: chills, malaise Respiratory: reports: cough, shortness of breath All other systems reviewed; all pertinent +/- noted in HPI/Subj Hospitalist History - Social History Alcohol: reports: None - Exam General Appearance: NAD, awake alert Eye: PERRL Neck: supple Heart: RRR, no murmur, no gallops, no rubs, diminshed peripheral pulses Respiratory: no rales, normal chest expansion, wheezes Gastrointestinal: soft, non-tender, non-distended, normal bowel sounds, no palpable masses Extremities: 1+ LE edema Extremities - other findings: nonhealing wound to L foot, PICC to LUE Neurological: no focal deficits Musculoskeletal: no muscle wasting Psychiatric: normal affect, normal behavior Hospitalist Results - Labs Result Diagrams: 03/03/20 09:47 03/03/20 09:47 Lab results: WBC 9.8 thou/uL (4.8-10.8) 03/03/20 09:47 Hgb 14.4 g/dL (14.0-18.0) 03/03/20 09:47 Hct 47.6 % (42.0-52.0) 03/03/20 09:47 MCV 86.4 fL (78.0-98.0) 03/03/20 09:47 Plt Count 137 thou/uL (130-400) 03/03/20 09:47 Neutrophils % 88.8 % (42.0-75.0) H 03/03/20 09:47 ABG pH 7.43 (7.35-7.45) 03/03/20 17:00 ABG pCO2 41.1 mmHg (35.0-45.0) 03/03/20 17:00 ABG pO2 70.2 mmHg (> 70.0) H 03/03/20 17:00 Sodium 136 mmol/L (136-145) 03/03/20 09:47 Potassium 3.5 mmol/L (3.5-5.1) 03/03/20 09:47 Chloride 91 mmol/L (98-107) L 03/03/20 09:47 Carbon Dioxide 32 mmol/L (23-31) H 03/03/20 09:47 BUN 39 mg/dL (8.4-25.7) H 03/03/20 09:47 Creatinine 1.57 mg/dL (0.7-1.3) H 03/03/20 09:47 Glucose 36 mg/dL (83-110) L* 03/03/20 09:47 Lactic Acid 2.3 mmol/L (0.5-2.2) H 03/03/20 15:21 Calcium 7.8 mg/dL (7.8-10.44) 03/03/20 09:47 Total Bilirubin 1.1 mg/dL (0.2-1.2) 03/03/20 09:47 AST 2435 U/L (5-34) H 03/03/20 09:47 ALT 1012 U/L (8-55) H 03/03/20 09:47 Alkaline Phosphatase 171 U/L (40-110) H 03/03/20 09:47 CK-MB (CK-2) 2.1 ng/mL (0-6.6) 03/03/20 09:47 Troponin I 0.272 ng/mL (< 0.028) H 03/03/20 17:23 Serum Total Protein 6.9 g/dL (5.8-8.1) 03/03/20 09:47 Albumin 3.3 g/dL (3.4-4.8) L 03/03/20 09:47 - Radiology Interpretation Chest x-ray Status: image reviewed by me, report reviewed by me Additional Comment: Findings: Heart size is enlarged. Multiple midline sternotomy wires. Central venous catheter tip projects over the mid SVC. Extensive airspace opacities at the lungs have progressed. No pneumothorax. No pneumomediastinum. Impression: Worsening lung aeration. US - venous Status: image reviewed by me, report reviewed by me Additional Comment: FINDING: The arterial structures of the left upper extremity were interrogated with grayscale, color Doppler and spectral Doppler evaluation. Appropriate wavef orms seen within the left common carotid artery, left subclavian artery and left axillary artery. There is a appropriate triphasic waveform within the left brachial artery. There is a more biphasic w aveform at the level of the left radial artery. Triphasic waveforms seen within the proximal left ulnar artery more more biphasic waveform is seen at the level of the wrist.. IMPRESSION: 1. No definite hemodynamically significant stenosis or occlusion demonstrated. 2. Findings suspicious for mild atherosclerotic disease involving the left radial and left ulnar arteries. Hospitalist H&P A/P - Plan Plan: Sepsis Continue IV antibiotics Dr. Bates consultcontinue infection and new sepsis while on IV antibiotics Continue IV fluidsmonitor for fluid overload Hypoxia due to Covid pneumonia ABG being drawn at this time Continue to monitor O2 sat Elevated troponin Continue monitor Previous admission was 1.012, currently is 0.393 Denies chest pain JORDYN Continue IVF Montior labs in a.m. Cellulitis Continue IV antibiotics Wound care team Hypoglycemia Monitor Accu-Cheks AC at bedtime Hold diabetic medications at this time VTE prophylaxisHeparin CODE STATUS: Full
[2020-03-03] MEDS ORDERED: Furosemide 80 MG TAB PO SCH (21:00)
[2020-03-03] MEDS: Atorvastatin Calcium 40 MG TAB PO SCH (21:10)
[2020-03-03] MEDS: guaiFENesin ER 600 MG TAB PO SCH (21:10)
[2020-03-03] MEDS: metroNIDAZOLE 250 MG TAB PO SCH (21:10)
[2020-03-03] MEDS: Heparin 5,000 UNITS/ML VIAL SC SCH (21:10)
[2020-03-04] MEDS: Acetaminophen/Codeine 30-300mg Tablet PO PRN ×3 (00:48→16:29)
[2020-03-04] MEDS ORDERED: Sodium Chloride 0.9% 1,000 ML IV SCH (01:15)
--- NOTE | 2020-03-04 01:23 | PDOC.EVN ---
Event Note - Event Note Event Note: Notified by RN, patient placed on High-Flow oxygen due to frequent desaturation, lungs notable for crackles Given 80 mg of Lasix PO at 2100 but has been on NS at 100/hr. IVF discontinued. CXR ordered to assess for fluid overload. Will repeat labs to assess kidney function. D-Dimer elevated earlier today, if improved will obtain CTA.
[2020-03-04 01:51] LABS: #Lymphocytes 1.7 thou/uL (1.20-3.40); #Monocytes 0.4 thou/uL (0.11-0.59); #Neutrophils 9.2 thou/uL (1.40-6.50); %Basophils 0.2 % (0.0-1.0); %Eosinophils 0.3 % (0.0-10.0); %Lymphocytes 14.7 % (21.0-51.0); %Monocytes 3.9 % (0.0-10.0); %Neutrophils 80.9 % (42.0-75.0); Hemoglobin 14.1 g/dL (14.0-18.0); Mean Corpuscular Hemoglobin 26.9 pg (27.0-31.0); Mean Corpuscular Volume 86.7 fL (78.0-98.0); Mean Platelet Volume 11.5 fL (7.4-10.4); Platelet Count 123 thou/uL (130-400); RBC Distribution Width 16.6 % (11.5-14.5); Red Blood Cell (RBC) Count 5.26 mill/uL (4.70-6.10); White Blood Cell (WBC) Count 11.3 thou/uL (4.8-10.8)
[2020-03-04 02:08] LABS: Anion Gap 16 mmol/L (10-20); BUN (Urea Nitrogen) 32 mg/dL (8.4-25.7); Calc. Creatinine Clearance 53 mL/min (70-130); Calcium 7.2 mg/dL (7.8-10.44); Carbon Dioxide 26 mmol/L (23-31); Chloride 97 mmol/L (98-107); Potassium 3.3 mmol/L (3.5-5.1); Sodium 136 mmol/L (136-145)
[2020-03-04 02:11] LABS: Glucose 43 mg/dL (83-110)
[2020-03-04 02:16] LABS: Actual Bicarbonate (HCO3a) 26.4 mEq/L (22-28); CO2 Tension 40.7 mmHg (35.0-45.0); Calcium, Ionized (arterial) 0.99 mmol/L (1.12-1.30); Carboxyhemoglobin (COHb) 0.8 gm% (0.0-3.0); Hemoglobin (Hb) 13.7 g/dL (14.0-18.0); Potassium - ABG Lab 3.06 mmol/L (3.70-5.30); pH, Arterial 7.43 (7.35-7.45)
[2020-03-04 02:20] LABS: Puncture Site RBA
[2020-03-04 02:22] LABS: ALV-art Gradient 259.625 mmHg (0-20)
[2020-03-04] MEDS ORDERED: Dextrose 50% Abboject 50 ML SYRINGE ONE (02:28)
[2020-03-04] MEDS: Piperacillin/Tazobactam 3.375 GM in Sodium Chloride 0.9% 100 ML IVPB SCH ×4 (02:31→20:14)
[2020-03-04] MEDS ORDERED: Dextrose 50% Abboject 50 ML SYRINGE SLOW IVP PRN (02:53)
[2020-03-04] MEDS ORDERED: Dextrose 5% in Water 1,000 ML IV PRN (02:53)
[2020-03-04 04:26] VITALS: BMI 27.1
[2020-03-04] MEDS ORDERED: Ondansetron ODT 4 MG TAB PO PRN (05:42)
[2020-03-04] MEDS ORDERED: Ondansetron ODT 4 MG TAB SL PRN (05:45)
--- NOTE | 2020-03-04 07:54 | RAD ---
XR Chest 1 View Portable History: Low oxygen saturation Comparison: Radiograph prior day Findings: Heart size markedly enlarged. Continued extensive airspace opacities throughout the lungs. No pneumothorax. Multiple midline sternotomy wires. No acute osseous abnormality. Impression: Similar extensive airspace opacities throughout the lungs.
[2020-03-04] MEDS ORDERED: Potassium Chloride 40 MEQ in Premix Bag 1 BAG IVPB SCH (08:30)
[2020-03-04] MEDS ORDERED: FLU VACC QS2020-21(65YR UP)/PF 240 MCG/0.7 ML SYRINGE IM ONE (09:00)
[2020-03-04] MEDS: Dexamethasone 6 MG in Sodium Chloride 0.9% 50 ML IVPB SCH (09:41)
[2020-03-04] MEDS: Aspirin 81 mg Enteric Coated Tablet PO SCH (09:42)
[2020-03-04] MEDS: Furosemide 80 MG TAB PO SCH ×2 (09:43→16:29)
[2020-03-04] MEDS: guaiFENesin ER 600 MG TAB PO SCH ×2 (09:43→20:16)
[2020-03-04] MEDS: metroNIDAZOLE 250 MG TAB PO SCH ×3 (09:45→20:16)
[2020-03-04] MEDS: Heparin 5,000 UNITS/ML VIAL SC SCH (09:50)
[2020-03-04] MEDS: Ondansetron PF 4 MG/2 ML Vial IVP PRN ×2 (10:11→16:33)
--- NOTE | 2020-03-04 14:55 | PDOC.HOSPP ---
- Subjective Encounter Date: 03/04/20 Subjective: Patient denied any specific complaints. Does not specifically report any shortness of breath at this time. - Objective Vital Signs & Weight: Vital Signs (12 hours) Temp Pulse Resp BP Pulse Ox 03/04/20 10:33 93 L 03/04/20 09:55 98.2 F 85 26 H 131/69 92 L 03/04/20 08:00 95 03/04/20 05:01 98.1 F 94 17 142/90 H 97 03/04/20 03:31 92 L Weight Admit Weight 173 lb 8 oz Weight 173 lb 8 oz I&O: 03/03/20 03/04/20 03/05/20 06:59 06:59 06:59 Intake Total 910 Output Total 350 Balance 560 Result Diagrams: 03/04/20 01:28 03/04/20 01:28 Additional Labs: Accuchecks 03/04/20 03/04/20 03/04/20 11:50 08:23 06:13 POC Glucose 100 131 H 148 H 03/04/20 03/03/20 03/03/20 05:03 20:26 16:32 POC Glucose 70 85 167 H 03/03/20 12:14 POC Glucose 44 L* Hospitalist ROS - Medication Medications: Active Medications Generic Name Dose Route Start Last Admin Trade Name Freq PRN Reason Stop Dose Admin Acetaminophen/Codeine Phosphate 1 tab 03/03/20 18:03 03/04/20 10:11 Acetaminophen/Codeine 30-300mg Tablet PO 1 tab Q6H PRN Administration Pain Aspirin 81 mg 03/04/20 09:00 03/04/20 09:42 Aspirin 81 Mg Enteric Coated Tablet PO 81 mg DAILY SELENA Administration Atorvastatin Calcium 40 mg 03/03/20 21:00 03/03/20 21:10 Atorvastatin Calcium 40 Mg Tab PO 40 mg HS SELENA Administration Dextrose/Water 25 gm 03/04/20 02:53 03/04/20 05:20 Dextrose 50% Abboject 50 Ml Syringe SLOW IVP 25 gm PRN PRN Administration Hypoglycemia Furosemide 80 mg 03/04/20 09:00 03/04/20 09:43 Furosemide 80 Mg Tab PO 80 mg 0900,1400 SELENA Administration Guaifenesin 600 mg 03/03/20 21:00 03/04/20 09:43 Guaifenesin Er 600 Mg Tab PO 600 mg BID SELENA Administration Heparin Sodium (Porcine) 5,000 units 03/03/20 21:00 03/04/20 09:50 Heparin 5,000 Units/Ml Vial SC 5,000 units TID SELENA Administration Piperacillin Sod/Tazobactam 100 mls @ 200 mls/hr 03/04/20 03:00 03/04/20 09:47 Sod 3.375 gm/ Sodium Chloride IVPB 100 mls 0300,0900,1500,2100 SELENA Administration Dexamethasone 6 mg/ Sodium 50.6 mls @ 100 mls/hr 03/04/20 09:00 03/04/20 09:41 Chloride IVPB 50.6 mls DAILY SELENA Administration Metronidazole 500 mg 03/03/20 21:00 03/04/20 09:45 Metronidazole 250 Mg Tab PO 500 mg TID SELENA Administration Ondansetron HCl 4 mg 03/04/20 05:43 03/04/20 10:11 Ondansetron Pf 4 Mg/2 Ml Vial IVP 4 mg Q6H PRN Administration Nausea/Vomiting Pantoprazole Sodium 40 mg 03/04/20 09:00 03/04/20 09:45 Pantoprazole 40 Mg Tab PO 40 mg DAILY SELENA Administration - Exam General Appearance: NAD, awake alert General - other findings: Appears slightly confused. Heart: RRR, no murmur, no gallops, no rubs, normal peripheral pulses Respiratory: rales (Scattered bilateral) Gastrointestinal: soft, non-tender, non-distended, normal bowel sounds, no palpable masses, no hepatomegaly, no splenomegaly, no bruit Extremities: 1+ LE edema Extremities - other findings: Large lateral left foot necrotic, ulcerated area with generalized erythema Skin: normal turgor Neurological: no focal deficits Musculoskeletal: generalized weakness Psychiatric: not oriented Hosp A/P (1) Acute respiratory failure with hypoxia Code(s): J96.01 - ACUTE RESPIRATORY FAILURE WITH HYPOXIA Status: Acute (2) Pneumonia due to COVID-19 virus Code(s): U07.1 - COVID-19; J12.89 - OTHER VIRAL PNEUMONIA Status: Acute (3) Cardiomyopathy Code(s): I42.9 - CARDIOMYOPATHY, UNSPECIFIED Status: Acute Qualifiers: Cardiomyopathy type: ischemic Qualified Code(s): I25.5 - Ischemic cardiomyopathy (4) Diabetic foot ulcer Code(s): E11.621 - TYPE 2 DIABETES MELLITUS WITH FOOT ULCER; L97.509 - NON- PRESSURE CHRONIC ULCER OTH PRT UNSP FOOT W UNSP SEVERITY Status: Acute Qualifiers: Diabetic foot ulcer location: toe Diabetes mellitus type: type 2 Laterality: left Non-pressure ulcer stage: unspecified non-pressure ulcer s tage Qualified Code(s): E11.621 - Type 2 diabetes mellitus with foot ulcer; L97.529 - Non-pressure chronic ulcer of other part of left foot with unspecified severity (5) CAD (coronary artery disease) Code(s): I25.10 - ATHSCL HEART DISEASE OF [place] CORONARY ARTERY W/O ANG PCTRS Status: Chronic Qualifiers: Coronary Disease-Associated Artery/Lesion type: bypass graft [place] vs. transplanted heart: [place] heart Associated angina: without angina Qualified Code(s): I25.810 - Atherosclerosis of coronary artery bypass graft(s) without angina pectoris (6) Diabetes mellitus type 2 in nonobese Code(s): E11.9 - TYPE 2 DIABETES MELLITUS WITHOUT COMPLICATIONS Status: Chronic (7) HTN (hypertension) Code(s): I10 - ESSENTIAL (PRIMARY) HYPERTENSION Status: Chronic Qualifiers: Hypertension type: essential hypertension Qualified Code(s): I10 - Essential (primary) hypertension (8) Peripheral vascular disease Code(s): I73.9 - PERIPHERAL VASCULAR DISEASE, UNSPECIFIED Status: Chronic (9) JORDYN (acute kidney injury) Code(s): N17.9 - ACUTE KIDNEY FAILURE, UNSPECIFIED Status: Acute (10) Diabetes mellitus Code(s): E11.9 - TYPE 2 DIABETES MELLITUS WITHOUT COMPLICATIONS Status: Acute (11) Hypoglycemia Code(s): E16.2 - HYPOGLYCEMIA, UNSPECIFIED Status: Acute (12) Sepsis Code(s): A41.9 - SEPSIS, UNSPECIFIED ORGANISM Status: Acute Qualifiers: Sepsis type: sepsis due to unspecified organism Sepsis acute organ dysf unction status: without acute organ dysfunction Qualified Code(s): A41.9 - Sepsis, unspecified organism (13) Hypokalemia Code(s): E87.6 - HYPOKALEMIA Status: Acute - Plan This patient is a 74-year-old male who is currently in a detention setting because he has severe peripheral vascular disease with a cellulitic foot with a large ulcerated area. Sounds like the plans were to keep the infection at bay long enough to give the patient some rehab at which time he would need to consider an [id number] amputation. Patient was at the nursing facility when he tested positive for COVID-19 and has had progressive worsening shortness of breath. He is 1 week post diagnosis of Covid. Acute hypoxic respiratory failure: Patient has respiratory failure secondary to COVID-19 pneumonia. He is requiring significant supplemental oxygen to maintain O2 saturations. Unfortunately the patient has some confusion and at times continues to pull off the oxygen requiring some soft restraints as he is fairly dependent on this oxygen. COVID-19 pneumonia: Patient is proximately 8 days past his diagnosis. Benefit of Remdesivir is likely equivocal at this point. Continue steroids. Vitamin D, vitamin C, zinc. Lovenox 40 mg twice daily ID consult. Sepsis: Patient had some low-grade fever at the detention, tachypnea, borderline criteria for heart rate and obvious underlying source of infection along with slightly elevated lactic acid. Patient has been on antibiotics through a PICC line at the nursing facility. Antibiotics will be continued here. Source is the left foot cellulitis. ID consult for further guidance. Left foot cellulitis: Secondary to a large ulcerated area that is necrotic due to peripheral vascular disease. Antibiotics as stated above. Severe peripheral vascular disease: Patient had a surgical AKA anticipated once he had rehabbed a bit. At this point the patient is likely too ill to consider any surgical inte rventions. Elevated troponins: Appear to be more chronic in nature and actually better than his previous admission. No symptoms to suggest angina. JORDYN on CKD stage III: Patient's baseline GFR is upper 50s. Below that on admission. Has improved with some hydration. Hypoglycemia: Patient has had an episode of hypoglycemia. Holding meds and continuing to monitor blood sugars. Diabetes mellitus: As above holding his medications. Likely due to acute infection.
[2020-03-04] MEDS: Enoxaparin Sodium 40 MG/0.4 ML SYRINGE SC SCH (20:13)
[2020-03-04] MEDS: Atorvastatin Calcium 40 MG TAB PO SCH (20:16)
[2020-03-04] MEDS ORDERED: DULoxetine 30 MG CAP PO SCH (20:30)
[2020-03-04] MEDS ORDERED: REMDESIVIR (EUA) 200 MG in Sodium Chloride 0.9% 250 ML 210 ML IV SCH (21:00)
[2020-03-05] MEDS: Acetaminophen/Codeine 30-300mg Tablet PO PRN (00:52)
--- NOTE | 2020-03-05 02:05 | CON ---
DATE OF CONSULTATION: 03/04/2020 REASON FOR CONSULTATION: COVID pneumonia. HISTORY OF PRESENT ILLNESS: A 74-year-old whom I had initially evaluated in the beginning of January 2020 when he presented with a history of former smoking, ischemic cardiomyopathy, type 2 diabetes, hyperlipidemia, and peripheral vascular disease with prior right and left-sided revascularizations in the form of femoral-popliteal bypass procedures. I saw him in this January, because of ulceration necrosis of the 5th metatarsal, left side with poor vascular supply. The patient had amputation of the 5th toe and apparently no other options for intervention were available, so he was continued on antimicrobial therapy for protracted period of time. I saw him once more few days later on the 03 of February and he was discharged on February 03. The discharge diagnosis was diabetic foot ulcer with severe PVD, status post amputation left 5th toe, ischemic cardiomyopathy, coronary disease, type 2 diabetes, had a PICC line placed on January 24 on the left upper extremity and he was discharged to [facility] and he was continuing to receive the antimicrobial therapy there and I think he has completed already, but he tested positive for COVID unfortunately, SARs-CoV-2 positive PCR on February 24. He developed hypoxemia, was transferred on the to this hospital. On arrival his BP was 120/60, pulse 85, respirations 25, temperature 98.7, O2 saturation 90% on room air, 97 on 3 L of oxygen supplementation. He was tachypneic and uncomfortable at rest. LABORATORY DATA: Other findings included a white cell count of 9.8, hemoglobin 14, platelets 137, 88% neutrophils. His D-dimer was 2.93, pH 7.43, pCO2 41, pO2 70 and creatinine 1.29. GFR 54. On arrival, his creatinine was 1.57 with GFR estimated of 43. The patient has been prescribed Decadron, Zosyn and Flagyl. IMAGING: Studies included chest x-ray with diffuse bilateral infiltrates. Currently, Mr. Leigh is in the observation unit. He is tachypneic on high- flow O2 nasal cannula. He is restrained on both upper extremities. Denies headaches, has moderate dyspnea, feels uncomfortable, because of the restraints. No abdominal pain. He is voiding in the urinal, actually in his pain in his briefs right now. PAST MEDICAL HISTORY: Rheumatoid arthritis, CHF, ischemic cardiomyopathy, type 2 diabetes, peripheral vascular disease with various prior procedures, right and left side for lower extremity right revascularization, COPD, recent amputation of the left 5th toe for gangrene management and protracted IV antimicrobial therapy administration. PAST SURGICAL HISTORY: Hernia repair, bypass graft surgery. SOCIAL HISTORY: Former smoker, quit more than 10 years ago. ALLERGIES: COREG. MEDICATIONS: Have been reviewed above. PHYSICAL EXAMINATION: GENERAL: Appears acutely ill and uncomfortable at rest. He is afebrile. VITAL SIGNS: He is breathing at 20 to 22 times a minute. He is saturating at 95% on high-flow nasal cannula. FiO2 calculated 60. BP 140/84. SKIN: Shows the amputation site of the left 5th toe with kind of a dry yellow surface wrapping around the 5th metatarsal amputation site. The tissue is necrotic and does not appear viable, but I do no know how the depth of this involvement is. He has a PICC line in left upper extremity, it is still in place. HEENT: Ocular movements conjugate. He has numerous missing teeth. Oral cavity is moist. NECK: Supple. No jugular vein distention. LUNGS: Symmetric, clear breath sounds, but scattered inspiratory crackles, somewhat faint but diffusely spread through right and left lung gayle. CARDIOVASCULAR: S1, S2. Regular rate without murmurs. ABDOMEN: Soft, not distended or tender. No ascites. No bladder distention. EXTREMITIES: I feel a faint popliteal pulse on the left side, 1+ on the right. I could not detect dorsalis pedis on the left or right. The left foot is cool to touch in the distal segments. The right side is a bit warmer. NEUROLOGIC: He is awake, a little bit confused. He knew he is in the hospital, but could not tell me, which one, could not tell me the date either. LABORATORY DATA: Sodium 136, creatinine 1.29, glucose of 43, white cell count of 11.3, hemoglobin 14, platelets 123 with 80% neutrophils and 2 sets of blood culture, no growth thus far. ASSESSMENT: 1. Peripheral vascular disease. 2. Type 2 diabetes. 3. Ischemic cardiomyopathy. 4. Recent amputation of left 5th toe with no evidence of successful healing of the site with necrotic tissue of uncertain depth covering the entire base of the amputation site. 5. Severe COVID pneumonia with diffuse infiltrates. The patient is right at 8th day of disease right now and eligible for remdesivir, continue Decadron. He is getting the Zosyn I believe for the foot, because the pneumonia is a viral pneumonia. His JASON index is at 7.20 and he is yet safe, I do not think he is going to require intubation at least in the next 24 hours. We need to repeat his JASON tomorrow, but he seems to be in a safe range right now. Job ID: [id number] [id number]
[2020-03-05] MEDS: Piperacillin/Tazobactam 3.375 GM in Sodium Chloride 0.9% 100 ML IVPB SCH ×4 (03:35→20:35)
[2020-03-05 04:58] LABS: Anion Gap 17 mmol/L (10-20); BUN (Urea Nitrogen) 28 mg/dL (8.4-25.7); Calc. Creatinine Clearance 56 mL/min (70-130); Calcium 6.7 mg/dL (7.8-10.44); Carbon Dioxide 24 mmol/L (23-31); Chloride 98 mmol/L (98-107); Glucose 121 mg/dL (83-110); Potassium 3.9 mmol/L (3.5-5.1); Sodium 135 mmol/L (136-145)
[2020-03-05 05:46] LABS: #Basophils 0.1 thou/uL (0.0-0.2); #Lymphocytes 0.7 thou/uL (1.20-3.40); #Monocytes 0.4 thou/uL (0.11-0.59); #Neutrophils 6.9 thou/uL (1.40-6.50); %Basophils 0.8 % (0.0-1.0); %Eosinophils 0.2 % (0.0-10.0); %Lymphocytes 8.4 % (21.0-51.0); %Monocytes 5.4 % (0.0-10.0); %Neutrophils 85.2 % (42.0-75.0); Band 13 % (5-11); Hemoglobin 13.6 g/dL (14.0-18.0); Lymphocytes 4 % (21-51); MDiff Complete? YES; Mean Corpuscular HGB CONC 29.1 g/dL (32.0-36.0); Mean Corpuscular Hemoglobin 25.8 pg (27.0-31.0); Mean Corpuscular Volume 88.7 fL (78.0-98.0); Mean Platelet Volume 11.9 fL (7.4-10.4); Monocytes 3 % (0-10); Neutrophil 78 % (42-75); Platelet Count 99 thou/uL (130-400); Platelet Morphology Comment Appears Decreased; RBC Distribution Width 16.8 % (11.5-14.5); RBC Morphology Normal; Reactive Lymphocytes 2 % (0-10); Red Blood Cell (RBC) Count 5.27 mill/uL (4.70-6.10); White Blood Cell (WBC) Count 8.1 thou/uL (4.8-10.8)
[2020-03-05 07:59] LABS: ALT (SGPT) 656 U/L (8-55); AST (SGOT) 1237 U/L (5-34); Albumin 2.4 g/dL (3.4-4.8); Alkaline Phosphatase 239 U/L (40-110); Bilirubin, Direct 0.7 mg/dL (0.1-0.3); Bilirubin, Total 1.1 mg/dL (0.2-1.2); Protein, Total 5.6 g/dL (5.8-8.1)
[2020-03-05] MEDS: Ondansetron PF 4 MG/2 ML Vial IVP PRN ×2 (08:57→21:08)
[2020-03-05] MEDS ORDERED: Zinc Sulfate 220 MG CAP PO SCH (09:00)
[2020-03-05] MEDS: Ascorbic Acid 500 mg Chewable Tablet PO SCH (09:00)
[2020-03-05] MEDS ORDERED: Ascorbic Acid 500 mg Chewable Tablet PO SCH (09:00)
[2020-03-05] MEDS: Aspirin 81 mg Enteric Coated Tablet PO SCH (09:00)
[2020-03-05] MEDS: Enoxaparin Sodium 40 MG/0.4 ML SYRINGE SC SCH ×2 (09:01→20:33)
[2020-03-05] MEDS: Cholecalciferol (Vitamin D3) 400 UNITS TAB PO SCH (09:01)
[2020-03-05] MEDS: Clopidogrel Bisulfate 75 MG TAB PO SCH (09:01)
[2020-03-05] MEDS: DULoxetine 30 MG CAP PO SCH (09:01)
[2020-03-05] MEDS: metroNIDAZOLE 250 MG TAB PO SCH ×4 (09:02→21:35)
[2020-03-05] MEDS: guaiFENesin ER 600 MG TAB PO SCH ×3 (09:02→21:35)
[2020-03-05] MEDS: Lisinopril 2.5 MG TAB PO SCH (09:02)
[2020-03-05] MEDS: Lactinex Tablet PO SCH (09:02)
[2020-03-05] MEDS: Zinc Sulfate 220 MG CAP PO SCH (09:03)
[2020-03-05] MEDS: Furosemide 80 MG TAB PO SCH ×2 (09:08→14:30)
[2020-03-05] MEDS: Dexamethasone 6 MG in Sodium Chloride 0.9% 50 ML IVPB SCH (10:39)
--- NOTE | 2020-03-05 11:38 | PDOC.HOSPP ---
- Subjective Encounter Date: 03/05/20 Encounter Time: 10:00 Subjective: Patient seen and examined bedside today, he is on high flow oxygen, patient is very weak, no fever, no chills, no diarrhea, - Objective Vital Signs & Weight: Vital Signs (12 hours) Temp Pulse Resp BP Pulse Ox 03/05/20 09:02 80 03/05/20 08:00 98.0 F 80 18 122/72 92 L 03/05/20 03:44 96.3 F L 89 16 130/83 91 L Weight Admit Weight 173 lb 8 oz Weight 173 lb 4.8 oz I&O: 03/04/20 03/05/20 03/06/20 06:59 06:59 06:59 Intake Total 910 1240 Output Total 350 Balance 560 1240 Result Diagrams: 03/05/20 04:36 03/05/20 04:36 Additional Labs: Accuchecks 03/05/20 03/05/20 03/05/20 07:58 03:38 00:15 POC Glucose 96 115 H 130 H 03/04/20 03/04/20 03/04/20 20:19 16:08 11:50 POC Glucose 112 H 103 H 100 Radiology Reviewed by me: Yes EKG Reviewed by me: Yes Hospitalist ROS - Review of Systems Constitutional: reports: weakness, malaise Respiratory: reports: shortness of breath, SOB with excertion. denies: cough, dry, hemoptysis, pleuritic pain, sputum, wheezing, other Cardiovascular: denies: chest pain, palpitations, orthopnea, paroxysmal noc. dy spnea, edema, light headedness, other Gastrointestinal: denies: nausea, vomiting, abdominal pain, diarrhea, constipation, melena, hematochezia, other Genitourinary: denies: dysuria, frequency, incontinence, hematuria, retention, other Musculoskeletal: denies: neck pain, shoulder pain, arm pain, back pain, hand pain, leg pain, foot pain, other - Medication Medications: Active Medications Generic Name Dose Route Start Last Admin Trade Name Freq PRN Reason Stop Dose Admin Acetaminophen/Codeine Phosphate 1 tab 03/03/20 18:03 03/05/20 00:52 Acetaminophen/Codeine 30-300mg Tablet PO 1 tab Q6H PRN Administration Pain Acidophilus 1 tab 03/05/20 09:00 03/05/20 09:02 Lactinex Tablet PO 1 tab DAILY SELENA Administration Ascorbic Acid 1,000 mg 03/05/20 09:00 03/05/20 09:00 Ascorbic Acid 500 Mg Chewable Tablet PO 1,000 mg DAILY SELENA Administration Aspirin 81 mg 03/04/20 09:00 03/05/20 09:00 Aspirin 81 Mg Enteric Coated Tablet PO 81 mg DAILY SELENA Administration Atorvastatin Calcium 40 mg 03/03/20 21:00 03/04/20 20:16 Atorvastatin Calcium 40 Mg Tab PO 40 mg HS SELENA Administration Cholecalciferol 400 units 03/05/20 09:00 03/05/20 09:01 Cholecalciferol (Vitamin D3) 400 Units Tab PO 400 units DAILY SELENA Administration Clopidogrel Bisulfate 75 mg 03/05/20 09:00 03/05/20 09:01 Clopidogrel Bisulfate 75 Mg Tab PO 75 mg DAILY SELENA Administration Dextrose/Water 25 gm 03/04/20 02:53 03/04/20 05:20 Dextrose 50% Abboject 50 Ml Syringe SLOW IVP 25 gm PRN PRN Administration Hypoglycemia Duloxetine HCl 30 mg 03/05/20 09:00 03/05/20 09:01 Duloxetine 30 Mg Cap PO 30 mg DAILY SELENA Administration Enoxaparin Sodium 40 mg 03/04/20 21:00 03/05/20 09:01 Enoxaparin Sodium 40 Mg/0.4 Ml Syringe SC 40 mg 0900,2100 SELENA Administration Furosemide 80 mg 03/04/20 09:00 03/05/20 09:08 Furosemide 80 Mg Tab PO 80 mg 0900,1400 SELENA Administration Guaifenesin 600 mg 03/03/20 21:00 03/05/20 09:02 Guaifenesin Er 600 Mg Tab PO 600 mg BID SELENA Administration Piperacillin Sod/Tazobactam 100 mls @ 200 mls/hr 03/04/20 03:00 03/05/20 09:02 Sod 3.375 gm/ Sodium Chloride IVPB 100 mls 0300,0900,1500,2100 SELENA Administration Dexamethasone 6 mg/ Sodium 50.6 mls @ 100 mls/hr 03/04/20 09:00 03/05/20 10:39 Chloride IVPB 50.6 mls DAILY SELENA Administration Lisinopril 2.5 mg 03/05/20 09:00 03/05/20 09:02 Lisinopril 2.5 Mg Tab PO 2.5 mg DAILY SELENA Administration Metoprolol Succinate 25 mg 03/05/20 09:00 03/05/20 09:02 Metoprolol Succinate Xl 25 Mg Tab PO 25 mg DAILY SELENA Administration Metronidazole 500 mg 03/03/20 21:00 03/05/20 09:02 Metronidazole 250 Mg Tab PO 500 mg TID SELENA Administration Ondansetron HCl 4 mg 03/04/20 05:43 03/05/20 08:57 Ondansetron Pf 4 Mg/2 Ml Vial IVP 4 mg Q6H PRN Administration Nausea/Vomiting Pantoprazole Sodium 40 mg 03/04/20 09:00 03/05/20 09:02 Pantoprazole 40 Mg Tab PO 40 mg DAILY SELENA Administration Zinc Sulfate 220 mg 03/05/20 09:00 03/05/20 09:03 Zinc Sulfate 220 Mg Cap PO 220 mg DAILY SELENA Administration - Exam General Appearance: NAD, ill appearing Eye: PERRL, anicteric sclera ENT: normocephalic atraumatic, no oropharyngeal lesions Neck: supple, symmetric, no JVD Heart: RRR, no murmur, no gallops Respiratory: no wheezes, no ronchi Respiratory - other findings: Bilateral coarse breath sound Gastrointestinal: soft, non-distended, normal bowel sounds Extremities: no cyanosis, no clubbing Skin: normal turgor, no lesions Skin - other findings: Wound noted over left foot Neurological: no focal deficits Musculoskeletal: normal tone, normal strength Psychiatric: normal affect, normal behavior Hosp A/P (1) Acute respiratory failure with hypoxia Code(s): J96.01 - ACUTE RESPIRATORY FAILURE WITH HYPOXIA Status: Acute (2) Pneumonia due to COVID-19 virus Code(s): U07.1 - COVID-19; J12.89 - OTHER VIRAL PNEUMONIA Status: Acute (3) Sepsis Code(s): A41.9 - SEPSIS, UNSPECIFIED ORGANISM Status: Acute Qualifiers: Sepsis type: sepsis due to unspecified organism Sepsis acute organ dysfunction status: with acute organ dysfunction Severe sepsis acute organ dysfunction type: acute respiratory failure Acute respiratory failure type: with hypoxia Severe sepsis shock status: without septic shock Qualified Cod e(s): A41.9 - Sepsis, unspecified organism; R65.20 - Severe sepsis without septic shock; J96.01 - Acute respiratory failure with hypoxia (4) Abnormal LFTs Code(s): R94.5 - ABNORMAL RESULTS OF LIVER FUNCTION STUDIES Status: Acute (5) Cardiomyopathy Code(s): I42.9 - CARDIOMYOPATHY, UNSPECIFIED Status: Chronic Qualifiers: Cardiomyopathy type: ischemic Qualified Code(s): I25.5 - Ischemic card iomyopathy (6) Diabetic foot ulcer Code(s): E11.621 - TYPE 2 DIABETES MELLITUS WITH FOOT ULCER; L97.509 - NON- PRESSURE CHRONIC ULCER OTH PRT UNSP FOOT W UNSP SEVERITY Status: Acute Qualifiers: Diabetic foot ulcer location: toe Diabetes mellitus type: type 2 Laterality: left Non-pressure ulcer stage: unspecified non-pressure ulcer stage Qualified Code(s): E11.621 - Type 2 diabetes mellitus with foot ulcer; L97.529 - Non-pressure chronic ulcer of other part of left foot with unspecified severity (7) CAD (coronary artery disease) Code(s): I25.10 - ATHSCL HEART DISEASE OF [place] CORONARY ARTERY W/O ANG PCTRS Status: Chronic Qualifiers: Coronary Disease-Associated Artery/Lesion type: bypass graft [place] vs. transplanted heart: [place] heart Associated angina: without angina Qualified Code(s): I25.810 - Atherosclerosis of coronary artery bypass graft(s) without angina pectoris (8) HTN (hypertension) Code(s): I10 - ESSENTIAL (PRIMARY) HYPERTENSION Status: Chronic Qualifiers: Hypertension type: essential hypertension Qualified Code(s): I10 - Essential (primary) hypertension (9) Peripheral vascular disease Code(s): I73.9 - PERIPHERAL VASCULAR DISEASE, UNSPECIFIED Status: Chronic (10) Thrombocytopenia Code(s): D69.6 - THROMBOCYTOPENIA, UNSPECIFIED Status: Acute - Plan old records reviewed/req, continue antibiotics, respiratory therapy Continue Zosyn and Flagyl for diabetic foot ulcer Continue dexamethasone and remdesivir, Continue vitamin supplementation Agree with the Lasix Continue high flow oxygen and wean off as tolerated We will closely monitor in hospital, prognosis guarded We will get right upper quadrant ultrasound, will order hepatitis profile Check PT/INR and electrolytes tomorrow along with routine laboratory test
[2020-03-05] MEDS ORDERED: Loperamide HCl 2 MG CAP PO PRN (11:42)
[2020-03-05] MEDS ORDERED: hydrALAZINE 20 MG/ML VIAL SLOW IVP PRN (11:42)
[2020-03-05] MEDS ORDERED: Loratadine 10 MG TAB PO PRN (11:42)
[2020-03-05] MEDS ORDERED: Cepastat Lozenges 1 LOZ PO PRN (11:42)
[2020-03-05] MEDS ORDERED: Benzonatate 100 MG CAP PO PRN (11:42)
[2020-03-05] MEDS ORDERED: Diabetic Tussin 200 MG/10 ML UDCUP PO PRN (11:42)
[2020-03-05] MEDS ORDERED: Calcium Carbonate 500 MG ChewTAB PO PRN (11:42)
[2020-03-05] MEDS ORDERED: Senokot S 8.6-50 MG TAB PO PRN (11:42)
[2020-03-05] MEDS ORDERED: Sodium Chloride 0.65% Nasal 44 ML BOT EA NARE PRN (11:42)
--- NOTE | 2020-03-05 19:13 | ULT ---
Right upper quadrant ultrasound: 03/05/2020 COMPARISON: None HISTORY: Abnormal liver function tests TECHNIQUE: Multiplanar grayscale sonographic imaging of the right upper quadrant provided. FINDINGS: Imaged portions of the pancreas grossly unremarkable. The pancreas partially obscured by jennifer wel gas. The hepatic parenchyma demonstrates a mildly heterogeneous echotexture. No discrete focal liver lesion is apparent. Small volume perihepatic fluid noted near the region of the dome. Nonspecific mild gallbladder wall t hickening. The common bile duct measures 5 mm, within normal limits. The right kidney measures 10 cm in craniocaudal dimension and demonstrates no stone, hydronephrosis, or mass. The industrial controls technician reports a negative Hughes's sign. There are shadowing stones layering within the gall bladder. IMPRESSION: Multiple layering shadowing stones within the gallbladder with a thickened gallbladder wa ll. Findings are equivocal for acute cholecystitis as the industrial controls technician reports a negative Hughes's sign. If there is high clinical concern for acute cholecystitis a hepatobiliary scan may be beneficia l.
[2020-03-05] MEDS ORDERED: REMDESIVIR (EUA) 100 MG in Sodium Chloride 0.9% 250 ML 230 ML IV SCH (21:00)
[2020-03-06] MEDS: Acetaminophen/Codeine 30-300mg Tablet PO PRN ×2 (01:06→13:53)
[2020-03-06] MEDS: Piperacillin/Tazobactam 3.375 GM in Sodium Chloride 0.9% 100 ML IVPB SCH ×2 (05:22→10:46)
[2020-03-06] MEDS: Heparin 5,000 UNITS/ML VIAL SC SCH (06:57)
--- NOTE | 2020-03-06 08:33 | PDOC.FMACP ---
Advance Care Planning - Note Participants: patient, palliative care Summary: Palliative care has addressed Advanced Care Planning. The diagnosis, prognosis and goals of care were discussed. Appropriate forms and documentation to accomplish the goals of care were discussed. All questions were answered. *Confirmed resuscitation status/Full resuscitation *Elected to complete Directive to physician. *Desires to continue with all life sustaining treatments *transition back to [facility] for continuation of abx therapy related to cellulitis Palliative care will sign off as Directives addressed and Goal of Care is to continue with aggressive therapies and return to [facility]. Please also refer to Palliative Care notes in note section. Thank you for this very appropriate consult, if we can assist in the future by revisiting Goal of care, complex decision making, prognosis disease assist, support/coping please re consult our team Time Spent (mins): 15
[2020-03-06 09:43] LABS: ALT (SGPT) 525 U/L (8-55); AST (SGOT) 748 U/L (5-34); Albumin 2.5 g/dL (3.4-4.8); Alkaline Phosphatase 221 U/L (40-110); Anion Gap 19 mmol/L (10-20); BUN (Urea Nitrogen) 38 mg/dL (8.4-25.7); Bilirubin, Total 1.2 mg/dL (0.2-1.2); Calc. Creatinine Clearance 50 mL/min (70-130); Calcium 6.6 mg/dL (7.8-10.44); Carbon Dioxide 25 mmol/L (23-31); Chloride 99 mmol/L (98-107); Globulin 2.6 g/dL (2.4-3.5); Glucose 174 mg/dL (83-110); Magnesium 1.9 mg/dL (1.6-2.6); Protein, Total 5.1 g/dL (5.8-8.1); Sodium 139 mmol/L (136-145)
[2020-03-06 09:50] LABS: #Lymphocytes 1.1 thou/uL (1.20-3.40); #Monocytes 0.8 thou/uL (0.11-0.59); #Neutrophils 11.6 thou/uL (1.40-6.50); %Basophils 0.1 % (0.0-1.0); %Eosinophils 0.2 % (0.0-10.0); %Lymphocytes 8.4 % (21.0-51.0); %Monocytes 5.7 % (0.0-10.0); %Neutrophils 85.7 % (42.0-75.0); Hemoglobin 15.2 g/dL (14.0-18.0); Mean Corpuscular HGB CONC 29.9 g/dL (32.0-36.0); Mean Corpuscular Hemoglobin 26.4 pg (27.0-31.0); Mean Corpuscular Volume 88.2 fL (78.0-98.0); Platelet Count 107 thou/uL (130-400); RBC Distribution Width 17.3 % (11.5-14.5); Red Blood Cell (RBC) Count 5.78 mill/uL (4.70-6.10); White Blood Cell (WBC) Count 13.5 thou/uL (4.8-10.8)
[2020-03-06 09:53] LABS: CRP (Inflammatory) 12.17 mg/dL (= or < 0.5)
[2020-03-06] MEDS ORDERED: Dexamethasone 4 mg/ml Vial SLOW IVP SCH (10:15)
[2020-03-06] MEDS ORDERED: Promethazine HCl 25 MG/ML VIAL IVPB PRN (10:16)
--- NOTE | 2020-03-06 10:20 | PDOC.HOSPP ---
- Subjective Encounter Date: 03/06/20 Encounter Time: 08:00 Subjective: Patient seen and examined. Patient is very hard stick, and this morning patient is complaining of nausea, no overnight events, patient is on high flow oxygen - Objective Vital Signs & Weight: Vital Signs (12 hours) Temp Pulse Resp BP Pulse Ox 03/06/20 05:30 98 F 80 15 144/93 H 93 L 03/06/20 01:26 97.7 F 79 14 134/77 94 L Weight Admit Weight 173 lb 8 oz Weight 173 lb 4.8 oz I&O: 03/05/20 03/06/20 03/07/20 06:59 06:59 06:59 Intake Total 1240 150 Balance 1240 150 Result Diagrams: 03/06/20 08:59 03/06/20 08:59 Additional Labs: Accuchecks 03/06/20 03/06/20 03/05/20 09:21 01:07 20:17 POC Glucose 161 H 163 H 181 H 03/05/20 03/05/20 15:51 11:56 POC Glucose 136 H 116 H Radiology Reviewed by me: Yes EKG Reviewed by me: Yes Hospitalist ROS - Review of Systems Constitutional: reports: weakness, malaise Eyes: denies: pain, vision change, conjunctivae inflammation, eyelid in flammation, redness, other ENT: denies: ear pain, ear discharge, nose pain, nose discharge, nose congestion, mouth pain, mouth swelling, throat pain, throat swelling, other Respiratory: reports: shortness of breath, SOB with excertion. denies: cough, dry, hemoptysis, pleuritic pain, sputum, wheezing, other Cardiovascular: denies: chest pain, palpitations, orthopnea, paroxysmal noc. dyspnea, edema, light headedness, other Gastrointestinal: reports: nausea, vomiting. denies: abdominal pain, diarrhea, constipation, melena, hematochezia, other Genitourinary: denies: dysuria, frequency, incontinence, hematuria, retention, other Musculoskeletal: denies: neck pain, shoulder pain, arm pain, back pain, hand pain, leg pain, foot pain, other Skin: denies: rash, lesions, effie, bruising, other - Medication Medications: Active Medications Generic Name Dose Route Start Last Admin Trade Name Freq PRN Reason Stop Dose Admin Acetaminophen/Codeine Phosphate 1 tab 03/03/20 18:03 03/06/20 01:06 Acetaminophen/Codeine 30-300mg Tablet PO 1 tab Q6H PRN Administration Pain Acidophilus 1 tab 03/05/20 09:00 03/05/20 09:02 Lactinex Tablet PO 1 tab DAILY SELENA Administration Ascorbic Acid 1,000 mg 03/05/20 09:00 03/05/20 09:00 Ascorbic Acid 500 Mg Chewable Tablet PO 1,000 mg DAILY SELENA Administration Aspirin 81 mg 03/04/20 09:00 03/05/20 09:00 Aspirin 81 Mg Enteric Coated Tablet PO 81 mg DAILY SELENA Administration Cholecalciferol 400 units 03/05/20 09:00 03/05/20 09:01 Cholecalciferol (Vitamin D3) 400 Units Tab PO 400 units DAILY SELENA Administration Clopidogrel Bisulfate 75 mg 03/05/20 09:00 03/05/20 09:01 Clopidogrel Bisulfate 75 Mg Tab PO 75 mg DAILY SELENA Administration Dextrose/Water 25 gm 03/04/20 02:53 03/04/20 05:20 Dextrose 50% Abboject 50 Ml Syringe SLOW IVP 25 gm PRN PRN Administration Hypoglycemia Duloxetine HCl 30 mg 03/05/20 09:00 03/05/20 09:01 Duloxetine 30 Mg Cap PO 30 mg DAILY SELENA Administration Enoxaparin Sodium 40 mg 03/04/20 21:00 03/05/20 20:33 Enoxaparin Sodium 40 Mg/0.4 Ml Syringe SC 40 mg 0900,2100 SELENA Administration Furosemide 80 mg 03/04/20 09:00 03/05/20 14:30 Furosemide 80 Mg Tab PO Not Given 0900,1400 SELENA Guaifenesin 600 mg 03/03/20 21:00 03/05/20 21:35 Guaifenesin Er 600 Mg Tab PO Not Given BID SELENA Piperacillin Sod/Tazobactam 100 mls @ 200 mls/hr 03/04/20 03:00 03/06/20 05:22 Sod 3.375 gm/ Sodium Chloride IVPB 100 mls 0300,0900,1500,2100 SELENA Administration Remdesivir 100 mg/ Sodium 250 mls @ 250 mls/hr 03/05/20 21:00 03/05/20 21:02 Chloride IV 03/08/20 21:59 250 mls 2100 SELENA Administration Lisinopril 2.5 mg 03/05/20 09:00 03/05/20 09:02 Lisinopril 2.5 Mg Tab PO 2.5 mg DAILY SELENA Administration Metoprolol Succinate 25 mg 03/05/20 09:00 03/05/20 09:02 Metoprolol Succinate Xl 25 Mg Tab PO 25 mg DAILY SELENA Administration Metronidazole 500 mg 03/03/20 21:00 03/05/20 21:35 Metronidazole 250 Mg Tab PO Not Given TID [facility] Ondansetron HCl 4 mg 03/04/20 05:43 03/05/20 21:08 Ondansetron Pf 4 Mg/2 Ml Vial IVP 4 mg Q6H PRN Administration Nausea/Vomiting Pantoprazole Sodium 40 mg 03/04/20 09:00 03/05/20 09:02 Pantoprazole 40 Mg Tab PO 40 mg DAILY SELENA Administration Zinc Sulfate 220 mg 03/05/20 09:00 03/05/20 09:03 Zinc Sulfate 220 Mg Cap PO 220 mg DAILY SELENA Administration - Exam General Appearance: NAD, ill appearing Eye: PERRL, anicteric sclera ENT: normocephalic atraumatic, no oropharyngeal lesions Neck: supple, symmetric, no JVD Heart: RRR, no murmur, no gallops, no rubs Respiratory - other findings: Bilateral reduced air entry, few basal rales, Gastrointestinal: soft, non-distended, normal bowel sounds Gastrointestinal - other findings: Right upper quadrant no tenderness on deep palpation Extremities: no clubbing, 1+ LE edema Skin: normal turgor, no lesions Neurological: no focal deficits Musculoskeletal: normal tone, normal strength Psychiatric: normal affect, normal behavior Hosp A/P (1) Acute respiratory failure with hypoxia Code(s): J96.01 - ACUTE RESPIRATORY FAILURE WITH HYPOXIA Status: Acute (2) Pneumonia due to COVID-19 virus Code(s): U07.1 - COVID-19; J12.89 - OTHER VIRAL PNEUMONIA Status: Acute (3) Sepsis Code(s): A41.9 - SEPSIS, UNSPECIFIED ORGANISM Status: Acute Qualifiers: Sepsis type: sepsis due to unspecified organism Sepsis acute organ dysfunction status: with acute organ dysfunction Severe sepsis acute organ dysfunction type: acute respiratory failure Acute respiratory failure type: with hypoxia Severe sepsis shock status: without septic shock Qualified Code(s): A41.9 - Sepsis, unspecified organism; R65.20 - Severe sepsis without septic shock; J96.01 - Acute respiratory failure with hypoxia Plan: Due to COVID-19 infection (4) Abnormal LFTs Code(s): R94.5 - ABNORMAL RESULTS OF LIVER FUNCTION STUDIES Status: Acute (5) Cardiomyopathy Code(s): I42.9 - CARDIOMYOPATHY, UNSPECIFIED Status: Chronic Qualifiers: Cardiomyopathy type: ischemic Qualified Code(s): I25.5 - Ischemic cardiomyopathy (6) Diabetic foot ulcer Code(s): E11.621 - TYPE 2 DIABETES MELLITUS WITH FOOT ULCER; L97.509 - NON- PRESSURE CHRONIC ULCER OTH PRT UNSP FOOT W UNSP SEVERITY Status: Acute Qualifiers: Diabetic foot ulcer location: toe Diabetes mellitus type: type 2 Laterality: left Non-pressure ulcer stage: unspecified non-pressure ulcer stage Qualified Code(s): E11.621 - Type 2 diabetes mellitus with foot ulcer; L97.529 - Non-pressure chronic ulcer of other part of left foot with unspecified severity (7) CAD (coronary artery disease) Code(s): I25.10 - ATHSCL HEART DISEASE OF [place] CORONARY ARTERY W/O ANG PCTRS Status: Chronic Qualifiers: Coronary Disease-Associated Artery/Lesion type: bypass graft [place] vs. transplanted heart: [place] heart Associated angina: without angina Qualified Code(s): I25.810 - Atherosclerosis of coronary artery bypass graft(s) without angina pectoris (8) HTN (hypertension) Code(s): I10 - ESSENTIAL (PRIMARY) HYPERTENSION Status: Chronic Qualifiers: Hypertension type: essential hypertension Qualified Code(s): I10 - Essential (primary) hypertension (9) Peripheral vascular disease Code(s): I73.9 - PERIPHERAL VASCULAR DISEASE, UNSPECIFIED Status: Chronic (10) Thrombocytopenia Code(s): D69.6 - THROMBOCYTOPENIA, UNSPECIFIED Status: Acute - Plan old records reviewed/req, continue antibiotics, DVT proph w/lovenox Patient has leukocytosis and thrombocytopenia, leukocytosis could be related with the dexamethasone, thrombocytopenia likely related with underlying COVID-19 infection, his LFT is gradually improving, suspecting from viral illness, yesterday patient had right upper quadrant ultrasound which suspected thickened gallbladder wall which is most likely related with underlying cardiomyopathy and low albumin, patient does not have any tenderness in the right upper quadrant, he is already on Zosyn, given his positive Covid status and underlying ischemic cardiomyopathy patient is not a good candidate for laparoscopic cholecystectomy at this point, will continue to monitor LFT, continue empiric antibiotic therapy, for his nausea and vomiting I have started Phenergan every 6 hourly, continue wound care, once patient recovered from Covid infection then patient may need evaluation for HIDA scan as well as evaluation of his wound on his extremity, will continue to wean off high flow oxygen, currently patient is on remdesivir therapy, infectious disease recommendation appreciated, patient is at risk for deterioration, even with the Lovenox patient's platelet count is improving so we will continue Lovenox therapy as patient has elevated D-dimer and he is at high risk for DVT.
[2020-03-06 10:29] LABS: MDiff Complete? YES; Nucleated RBC 1 % (0); Platelet Morphology Comment Appears Decreased; Polychromasia MODERATE = 3-4 cells (100X) (0-2/hpf); Schistocytes SLIGHT = 2-5 cells (100X) (0-1/hpf); Target Cells SLIGHT = 2-5 cells (100X) (0-1/hpf)
[2020-03-06] MEDS: Clopidogrel Bisulfate 75 MG TAB PO SCH (10:41)
[2020-03-06] MEDS: Ascorbic Acid 500 mg Chewable Tablet PO SCH (10:41)
[2020-03-06] MEDS: Aspirin 81 mg Enteric Coated Tablet PO SCH (10:41)
[2020-03-06] MEDS: DULoxetine 30 MG CAP PO SCH (10:41)
[2020-03-06] MEDS: Furosemide 80 MG TAB PO SCH ×2 (10:41→13:53)
[2020-03-06] MEDS: Cholecalciferol (Vitamin D3) 400 UNITS TAB PO SCH (10:41)
[2020-03-06] MEDS: guaiFENesin ER 600 MG TAB PO SCH (10:42)
[2020-03-06] MEDS: Lactinex Tablet PO SCH (10:42)
[2020-03-06] MEDS: Lisinopril 2.5 MG TAB PO SCH (10:42)
[2020-03-06] MEDS: metroNIDAZOLE 250 MG TAB PO SCH (10:43)
[2020-03-06] MEDS: Enoxaparin Sodium 40 MG/0.4 ML SYRINGE SC SCH (10:43)
[2020-03-06] MEDS: Zinc Sulfate 220 MG CAP PO SCH (10:48)
[2020-03-06] MEDS ORDERED: Promethazine HCl 25 MG in Sodium Chloride 0.9% 50 ML IVPB PRN (10:48)
[2020-03-06] MEDS: Dexamethasone 6 MG in Sodium Chloride 0.9% 50 ML IVPB SCH (10:52)
[2020-03-06 11:49] VITALS: BP 128/82; TEMP 97.9
[2020-03-06 12:18] LABS: INR-International Normal Ratio 1.9; Prothrombin Time 22.5 sec (12.0-14.7)
[2020-03-06 12:19] LABS: D-Dimer Test 2.37 *mcg/mL (0.27-0.43)
[2020-03-06 12:42] LABS: HBSAg Index 0.18 S/CO (0-0.99); Hep B Surf Ag Non-Reactive S/CO (NonReactive)
[2020-03-06 12:43] LABS: Hep C IgG Ab Non-Reactive (NonReactive); Hep C Index 0.18 S/CO (0-0.79)
[2020-03-06 12:45] LABS: Hep A IgM AB Non-Reactive (NonReactive); Hep A IgM S/CO 0.25 S/CO (0-0.79)
[2020-03-06 12:46] LABS: HBCM Index 0.06 S/CO (0-0.79); Hepatitis B Core IgM Abs Non-Reactive (NonReactive)
[2020-03-06] MEDS ORDERED: EPINEPHrine 1 MG/10 ML Abboject SYRINGE ONE (15:00)
[2020-03-06] MEDS ORDERED: Sodium Bicarb 50 MEQ/50 ML Abboject 8.4% SYRINGE ONE (15:00)
[2020-03-06] MEDS ORDERED: Calcium Chloride 1 GM/10 ML Abboject SYRINGE ONE (15:00)
--- NOTE | 2020-03-07 07:41 | DIS ---
DATE OF ADMISSION: 03/03/2020 DATE OF DISCHARGE: 03/06/2020 PRIMARY CAUSE OF : 1. Acute respiratory failure with hypoxia due to COVID-19. 2. Acute kidney failure. 3. Pneumonia due to COVID-19 virus. 4. Sepsis due to COVID-19 infection. 5. Diabetic foot ulcer. 6. Acute liver failure. CONTRIBUTING DIAGNOSES: 1. Peripheral vascular disease. 2. Chronic systolic heart failure. 3. Diabetes, type 2. 4. Hypertension. 5. Coronary artery disease. TIME OF : 3:40 p.m. HOSPITAL COURSE: The patient was admitted on March 03, 2020. Please see H and P dictated by Nora nurse practitioner. On admission, chest x-ray showed cardiomegaly, sternotomy wires, extensive airspace opacity in the lungs. The patient had upper extremity ultrasound which was negative for any occlusion or stenosis. The patient had repeat chest x-ray on March 04, which showed extensive airspace opacity throughout the lungs. The patient was also evaluated by Dr. Bates. The patient has severe COVID pneumonia with diffuse infiltrate, the patient was getting Zosyn for his diabetic foot ulcer. The patient was started on remdesivir therapy, the patient was also given dexamethasone. Vitamin supplementation was given. He was also getting goal-directed therapy for his heart failure. The patient's condition did not improve, he had acute liver failure and acute kidney failure on admission, renal function slightly improved, the patient has significantly elevated inflammatory marker with abnormal LFT, he had a thrombocytopenia as well as coagulopathy. The patient was also given Lovenox for DVT prophylaxis, his hepatitis profile negative. The patient was treated with high-flow oxygen, remdesivir, dexamethasone, and empiric antibiotic. Today the patient had cardiac arrest, the patient had initially atrial fibrillation with RVR and subsequently, the patient has slowly decreased to josseline and asystole, CPR was initiated, we did 20 minutes CPR as well as 3 rounds of epinephrine and 3 times DC shock given for monitor was showing VFib, the patient has agonal rhythm subsequently and asystole. Despite maximum trial with ACLS protocol, the patient did not recover. The patient was also intubated with ACLS protocol. The patient was also given sodium bicarbonate and calcium gluconate. Finally, all entire team agreed to turn off ACLS protocol treatment and at 3:40 p.m., was pronounced, subsequently I spoke with the family member and notified about all this information. Job ID: [id number]
[2020-03-07] MEDS ORDERED: Dexamethasone 4 mg/ml Vial SLOW IVP SCH (09:00)
--- NOTE | 2020-03-08 15:20 | EKG ---
Test Reason : Blood Pressure : / mmHG Vent. Rate : 087 BPM Atrial Rate : 087 BPM P-R Int : 164 ms QRS Dur : 094 ms QT Int : 380 ms P-R-T Axes : 061 -20 069 degrees QTc Int : 457 ms Sinus rhythm with occasional Premature ventricular complexes Nonspecific T wave abnormality Abnormal ECG Confirmed by ENOC JUAREZ DO ([id number]), editor school photograph LOREN ZIMMERMAN ([id number]) on 03/08/2020 3:19:57 PM Referred By: Confirmed By:ENOC JUAREZ DO
== END 2020-03-06 19:45 | disposition expired | DRG 871 ==
LOC: ERS 09:09 → 2SW 14:22
PROVIDERS: ADMIT Family Medicine; ATTEND Internal Medicine
PROC: XW033E5 Introduction of Remdesivir Anti-infective into Peripheral Vein, Percutaneous Approach, New Technology Group 5 (ICD-10-PCS; principal; 2020-03-04)
PROC: 5A12012 Performance of Cardiac Output, Single, Manual (ICD-10-PCS; 2020-03-06)
PROC: 3E033XZ Introduction of Vasopressor into Peripheral Vein, Percutaneous Approach (ICD-10-PCS; 2020-03-06)
PROC: 5A2204Z Restoration of Cardiac Rhythm, Single (ICD-10-PCS; 2020-03-06)
PROC: 0BH17EZ Insertion of Endotracheal Airway into Trachea, Via Natural or Artificial Opening (ICD-10-PCS; 2020-03-06)
DX: A41.89 Other specified sepsis (principal); J12.89 Other viral pneumonia; U07.1 COVID-19; J96.01 Acute respiratory failure with hypoxia; K72.00 Acute and subacute hepatic failure without coma; L03.116 Cellulitis of left lower limb; N17.9 Acute kidney failure, unspecified; I13.0 Hypertensive heart and chronic kidney disease with heart failure and stage 1 through stage 4 chronic kidney disease, or unspecified chronic kidney disease; I25.810 Atherosclerosis of coronary artery bypass graft(s) without angina pectoris; I50.22 Chronic systolic (congestive) heart failure; D68.9 Coagulation defect, unspecified; R65.20 Severe sepsis without septic shock; E78.00 Pure hypercholesterolemia, unspecified; F41.9 Anxiety disorder, unspecified; R77.8 Other specified abnormalities of plasma proteins; E11.621 Type 2 diabetes mellitus with foot ulcer; E11.649 Type 2 diabetes mellitus with hypoglycemia without coma; J44.9 Chronic obstructive pulmonary disease, unspecified; E87.6 Hypokalemia; N18.30 Chronic kidney disease, stage 3 unspecified; E11.22 Type 2 diabetes mellitus with diabetic chronic kidney disease; I25.5 Ischemic cardiomyopathy; Z51.5 Encounter for palliative care; R94.5 Abnormal results of liver function studies; L97.529 Non-pressure chronic ulcer of other part of left foot with unspecified severity; D69.6 Thrombocytopenia, unspecified; I46.9 Cardiac arrest, cause unspecified; I48.91 Unspecified atrial fibrillation; Z88.8 Allergy status to other drugs, medicaments and biological substances; Z89.422 Acquired absence of other left toe(s); Z87.891 Personal history of nicotine dependence; Z79.899 Other long term (current) drug therapy; Z79.01 Long term (current) use of anticoagulants; Z79.82 Long term (current) use of aspirin; E11.51 Type 2 diabetes mellitus with diabetic peripheral angiopathy without gangrene; Z95.1 Presence of aortocoronary bypass graft; E11.628 Type 2 diabetes mellitus with other skin complications; Z83.3 Family history of diabetes mellitus; Z79.4 Long term (current) use of insulin
CPT/HCPCS: 36415; 36416; 36600; 71045; 76705; 80048; 80053; 80074; 80076; 82550; 82553; 82728; 82805; 83605; 83735; 84100; 84484; 85025; 85379; 85610; 85730; 86140; 87040; 93005; 93923; 96365; 96367; 96375; J0171; J1100; J1644; J1650; J2405; J2543; J2550; J3010; J3370; J3480; J3490; J7030; J7050; Q0162